=== PATIENT | male | born 1945 | race Caucasian/White ===

== ENCOUNTER 2020-11-04 15:59 | Inpatient (IN) | payer OTHER ==
[~2020-11-04] VITALS: Ht 172.7 cm; Wt 55.0 kg
[2020-11-04] MEDS ORDERED: IV NORMAL SALINE 1000ML BAG 1,000 ML IV ONE ×2 (16:30→19:30)
--- NOTE | 2020-11-04 16:35 | RAD ---
Exam: Chest one view INDICATION: Cough TECHNIQUE: Frontal view of the chest Comparisons: None FINDINGS: The cardiomediastinal silhouette and pulmonary vessels are within normal limits. Strandy bibasilar airspace disease. No pleural effusion. IMPRESSION: Bibasilar atelectasis. Electronically signed by: Douglas Mccormack MD (11/04/2020 4:32 PM) LEONARDO
[2020-11-04 16:48] LABS: BASO % 0 % (0-3); EOS % 0 % (0-3); HEMATOCRIT 26.5 % (39.0-53.0); HEMOGLOBIN 8.6 g/dL (13.0-17.5); LYMPH # 0.3 x10^3/uL (1.0-4.8); LYMPH % 2 % (24-48); MEAN CORPUSCULAR HEMOGLOBIN 28 pg (25-35); MEAN CORPUSCULAR HGB CONC 32 g/dL (31-37); MEAN CORPUSCULAR VOLUME 88 fL (79-100); MONO # 0.3 x10^3/uL (0.0-1.1); MONO % 2 % (0-9); NEUT # 13.2 x10^3/uL (1.8-7.7); NEUT % 96 % (31-73); PLATELET COUNT 220 x10^3/uL (140-400); RED BLOOD COUNT 3.03 x10^6/uL (4.30-5.70); RED CELL DISTRIBUTION WIDTH 16.9 % (11.5-14.5); WHITE BLOOD COUNT 13.8 x10^3/uL (4.0-11.0)
--- NOTE | 2020-11-04 16:52 | PHYS DOC ---
Past Medical History Past Surgical History: Other Additional Past Surgical Histo: unable to obtain Smoking Status: Unknown if ever smoked Alcohol Use: None General Adult EDM: Chief Complaint: BLOOD IN URINE HPI: HPI: Patient is a 75 year old male who was brought here from [facility] due to blood in his Harris catheter. Patient chronically has indwelling Harris catheter. Today they replaced the Harris catheter, afterward they noted blood in the Harris catheter so they want him to be sent to ER for evaluation. Patient was supposed to go to [facility] for urology care however they diverted him here because his blood pressure was low, 84/40. Patient has history of atrial fibrillation. Patient at baseline is confused. No chest pain, no abdominal pain. Patient has been coughing for a few days as well. Patient was not vaccinated for COVID-19. EMS gave patient 2 L normal saline on route here. Review of Systems: Review of Systems: Constitutional: Denies fever or chills. [] Eyes: Denies change in visual acuity. [] HENT: Denies nasal congestion or sore throat. [] Respiratory: Positive for cough and trouble breathing Cardiovascular: Denies chest pain or edema. [] GI: Denies abdominal pain, nausea, vomiting, bloody stools or diarrhea. [] : Positive for blood in the Harris catheter Musculoskeletal: Denies back pain or joint pain. [] Integument: Denies rash. [] Neurologic: Denies headache, focal weakness or sensory changes. [] Endocrine: Denies polyuria or polydipsia. [] Lymphatic: Denies swollen glands. [] Psychiatric: Denies depression or anxiety. [] Heart Score: C/O Chest Pain: N/A Risk Factors: Risk Factors: DM, Current or recent (<one month) smoker, HTN, HLP, family history of CAD, obesity. Risk Scores: Score 0 - 3: 2.5% MACE over next 6 weeks - Discharge Home Score 4 - 6: 20.3% MACE over next 6 weeks - Admit for Clinical Observation Score 7 - 10: 72.7% MACE over next 6 weeks - Early Invasive Strategies Current Medications: Current Medications Medications (Trade) Dose Ordered Sig/Betsy Start Time Stop Time Status Last Admin Dose Admin Sodium Chloride 1,000 ml @ 1,000 mls/hr 1X ONCE 11/04/20 16:30 11/04/20 17:29 UNV 11/04/20 16:30 1,000 MLS/HR Allergies: Allergies: Allergies Coded Allergies Type Severity Reaction Last Updated Verified No Known Drug Allergies 11/04/20 No Physical Exam: PE: Constitutional: Well developed, well nourished, no acute distress, non-toxic appearance. [] HENT: Normocephalic, atraumatic, bilateral external ears normal, oropharynx moist, no oral exudates, nose normal. [] Eyes: PERRLA, EOMI, conjunctiva normal, no discharge. [] Neck: Normal range of motion, no tenderness, supple, no stridor. [] Cardiovascular tachycardia with irregular rhythm, no murmur [] Lungs & Thorax: Bilateral breath sounds clear to auscultation [] Abdomen: Bowel sounds normal, soft, no tenderness, no masses, no pulsatile masses. Harris catheter in place, dark brown urine in the back, yellow urine in the tubing. Skin: Warm, dry, no erythema, no rash. [] Back: No tenderness, no CVA tenderness. [] Extremities: No tenderness, no cyanosis, no clubbing, ROM intact, no edema. [] Neurologic: Patient is awake alert but confused. Was moving all extremities. Psychologic: Affect normal, judgement normal, mood normal. [] Current Patient Data: Labs: Current Medications Medications (Trade) Dose Ordered Sig/Betsy Route PRN Reason Start Time Stop Time Status Last Admin Dose Admin Sodium Chloride 1,000 ml @ 1,000 mls/hr 1X ONCE IV 11/04/20 16:30 11/04/20 17:29 UNV 11/04/20 16:30 1,000 MLS/HR Vital Signs: Vital Signs Date Time Temp Pulse Resp B/P (MAP) Pulse Ox O2 Delivery O2 Flow Rate FiO2 11/04/20 16:09 97.9 106 15 101/63 96 Nasal Cannula 2.0 97.9 EKG: EKG: [] Radiology/Procedures: Radiology/Procedures: [][facility] [address] [place] [address] IMAGING REPORT Signed PATIENT: XAVI LEWIS ACCOUNT: [id number] : 1945 LOCATION: ER AGE: 75 SEX: M EXAM STATUS: REG ER ORD. PHYSICIAN: SALLY BARRETT DO REASON: COUGH PROCEDURE: CHEST AP ONLY Exam: Chest one view INDICATION: Cough TECHNIQUE: Frontal view of the chest Comparisons: None FINDINGS: The cardiomediastinal silhouette and pulmonary vessels are within normal limits. Strandy bibasilar airspace disease. No pleural effusion. IMPRESSION: Bibasilar atelectasis. Electronically signed by: Douglas Shultz MD (11/04/2020 4:32 PM) [facility] DICTATED and SIGNED BY: DOUGLAS SHULTZ MD DATE: 11/04/20 [id number] Course & Med Decision Making: Course & Med Decision Making Pertinent Labs and Imaging studies reviewed. (See chart for details) Patient is a 75-year-old male who was sent here from [facility]. Patient was found to have urosepsis. Patient was given IV fluid in ER, he met criteria for sepsis. Patient was given IV Rocephin in ER, his blood pressure improved. Patient be admitted to the hospital service, discussed with Dr. Jeff López who agreed to admit the patient. Sera Disclaimer: Sera Disclaimer: This electronic medical record was generated, in whole or in part, using a voice recognition dictation system. Departure Departure Impression: Primary Impression: UTI (urinary tract infection) Additional Impressions: Sepsis Person under investigation for COVID-19 Disposition: ADMITTED INPATIENT Admitting Physician: [facility] (Dr. JEFF LÓPEZ) Condition: IMPROVED Referrals: NO PCP (PCP) SALLY BARRETT DO Nov 04, 2020 16:52
[2020-11-04] MEDS ORDERED: cefTRIAXone IV Push 1 GM VIAL. IVP ONE (17:00)
[2020-11-04 17:02] LABS: CALCIUM 7.7 mg/dL (8.5-10.1); CLARITY,URINE BLOODY; COLOR,URINE BROWN; CREATININE 1.1 mg/dL (0.7-1.3); GFR 65.4; POTASSIUM 3.9 mmol/L (3.5-5.1); RBC,URINE TNTC /HPF (0-2)
[2020-11-04 17:06] LABS: BACTERIA,URINE MODERATE /HPF (0-FEW); WBC,URINE >40 /HPF (0-4)
[2020-11-04 17:08] LABS: ALBUMIN/GLOBULIN RATIO 0.7 (1.0-1.7); MAGNESIUM 1.6 mg/dL (1.8-2.4); TOTAL BILIRUBIN 0.2 mg/dL (0.2-1.0); TOTAL PROTEIN 4.8 g/dL (6.4-8.2)
[2020-11-04] MEDS ORDERED: CALCIUM GLUCONATE 1,000 MG in IV NORMAL SALINE 100ML 100 ML IV ONE (17:30)
[2020-11-04] MEDS ORDERED: MAGNESIUM SULFATE 2GM 50 ML IV ONE (17:30)
[2020-11-04] MEDS ORDERED: CALCIUM GLUCONATE 1,000 MG/10 ML VIAL. IVP ONE (17:30)
[2020-11-04 17:37] LABS: % BANDS 15 % (0-9); % LYMPHS 2 % (24-48); % MONOS 2 % (0-10); % SEGS 81 % (35-66); PLT ESTIMATE ADEQUATE (ADEQUATE)
--- NOTE | 2020-11-04 18:08 | EKG ---
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
[2020-11-04] MEDS ORDERED: ONDANSETRON PF 4 MG/2 ML VIAL. IVP PRN ×2 (18:30→19:15)
[2020-11-04] MEDS: IV NORMAL SALINE 1000ML BAG 1,000 ML IV SCH (18:30)
[2020-11-04] MEDS ORDERED: MORPHINE SULFATE 4 MG/ML INJ. IVP PRN (19:00)
--- NOTE | 2020-11-04 19:10 | PDOC1 ---
History and Physical Date of Admission Date of Admission DATE: 11/04/20 TIME: 18:56 Identification/Chief Complaint Chief Complaint Blood in urine Source Source: Chart review History of Present Illness History of Present Illness Patient 75-year-old male with past medical history dementia, chronic indwelling Harris catheter, who [facility] due to blood found in his Harris catheter. His Harris was recently changed at his correctional facility, he was sent to the ED due to continued bleeding. He was supposed to follow-up at [facility] for urology, however they never returned to [facility] because his blood pressure was low, 84/40 mmHg. Upon arrival in the ED he was tachycardic, afebrile, we did require 2 L nasal cannula due to some hypoxia. Labs on admission showed WBC 13.8, hemoglobin 8.6, hematocrit 26.5, MCV 88, platelets 225, lactic acid 2.1, albumin 2.0. His rapid COVID-19 was negative. His urinalysis showed RBCs TNTC, WBC >40, urine bacteria moderate, further UA results were not performed likely due to gross hematuria. He has been vaccinated against COVID-19. He received Rocephin 1 g and IV fluids. Will admit patient for further medical management. Past Medical History Past Medical History Dementia, A. fib, CKD, frequent UTIs Past Surgical History Past Surgical History Reviewed with patient but unable to obtain due to clinical history of dementia Family History Family History Reviewed with patient but unable to obtain due to clinical history dementia Social History Smoke: No ALCOHOL: none Drugs: None Current Problem List Problem List Problems Medical Problems: (1) Person under investigation for COVID-19 Status: Acute (2) Sepsis Status: Acute (3) UTI (urinary tract infection) Status: Acute Current Medications Current Medications Current Medications Sodium Chloride 1,000 ml @ 1,000 mls/hr 1X ONCE IV Last administered on 11/04/20at 16:30; Start 11/04/20 at 16:30; Stop 11/04/20 at 17:29; Status DC Ceftriaxone Sodium (Rocephin) 1 gm 1X ONCE IVP Last administered on 11/04/20at 17:38; Start 11/04/20 at 17:00; Stop 11/04/20 at 17:01; Status DC Magnesium Sulfate 50 ml @ 25 mls/hr 1X ONCE IV Last administered on 11/04/20at 17:43; Start 11/04/20 at 17:30; Stop 11/04/20 at 19:29 Calcium Gluconate (Calcium Gluconate) 1,000 mg 1X ONCE IVP ; Start 11/04/20 at 17:30; Stop 11/04/20 at 17:31; Status UNV Calcium Gluconate 1000 mg/Sodium Chloride 110 ml @ 220 mls/hr 1X ONCE IV Last administered on 11/04/20at 18:11; Start 11/04/20 at 17:30; Stop 11/04/20 at 17:59; Status DC Ondansetron HCl (Zofran) 4 mg PRN Q8HRS PRN IVP NAUSEA/VOMITING; Start 11/04/20 at 18:30; Stop 11/05/20 at 18:29 Sodium Chloride 1,000 ml @ 125 mls/hr Q8H IV ; Start 11/04/20 at 18:30; Stop 11/05/20 at 18:29 Allergies Allergies: Coded Allergies: No Known Drug Allergies (Unverified , 11/04/20) ROS Review of System Reviewed with patient but unable to stand to history of dementia Physical Exam Physical Exam General: Alert, Cooperative, No acute distress HEENT: PERRLA, EOMI Lungs: Clear to auscultation, Normal air movement Heart: RRR, no murmurs Cardiovascular: S1, S2 Abdomen: Normal bowel sounds, Soft, No tenderness Extremities: No clubbing, No cyanosis : Harris catheter in place draining dark red urine Skin: No rashes, No significant lesion Neuro: Nonverbal, normal tone, Sensation intact Psych/Mental Status: Pleasantly demented, mood NL Vitals Vitals Vital Signs Date Time Temp Pulse Resp B/P (MAP) Pulse Ox O2 Delivery O2 Flow Rate FiO2 11/04/20 17:43 98 19 98/54 (69) 97 Nasal Cannula 2.0 11/04/20 16:09 97.9 97.9 Labs Labs Laboratory Tests Test 11/04/20 16:40 11/04/20 17:00 White Blood Count 13.8 x10^3/uL (4.0-11.0) Red Blood Count 3.03 x10^6/uL (4.30-5.70) Hemoglobin 8.6 g/dL (13.0-17.5) Hematocrit 26.5 % (39.0-53.0) Mean Corpuscular Volume 88 fL (79-100) Mean Corpuscular Hemoglobin 28 pg (25-35) Mean Corpuscular Hemoglobin Concent 32 g/dL (31-37) Red Cell Distribution Width 16.9 % (11.5-14.5) Platelet Count 220 x10^3/uL (140-400) Neutrophils (%) (Auto) 96 % (31-73) Lymphocytes (%) (Auto) 2 % (24-48) Monocytes (%) (Auto) 2 % (0-9) Eosinophils (%) (Auto) 0 % (0-3) Basophils (%) (Auto) 0 % (0-3) Neutrophils # (Auto) 13.2 x10^3/uL (1.8-7.7) Lymphocytes # (Auto) 0.3 x10^3/uL (1.0-4.8) Monocytes # (Auto) 0.3 x10^3/uL (0.0-1.1) Eosinophils # (Auto) 0.0 x10^3/uL (0.0-0.7) Basophils # (Auto) 0.0 x10^3/uL (0.0-0.2) Segmented Neutrophils % 81 % (35-66) Band Neutrophils % 15 % (0-9) Lymphocytes % 2 % (24-48) Monocytes % 2 % (0-10) Dohle Bodies Present Platelet Estimate Adequate (ADEQUATE) Urine Collection Type Unknown Urine Color Brown Urine Clarity Bloody Urine pH (<5.0-8.0) Urine Specific [place] (1.000-1.030) Urine Protein mg/dL (NEG-TRACE) Urine Glucose (UA) mg/dL (NEG) Urine Ketones (Stick) mg/dL (NEG) Urine Blood (NEG) Urine Nitrite (NEG) Urine Bilirubin (NEG) Urine Urobilinogen Dipstick mg/dL (0.2 mg/dL) Urine Leukocyte Esterase (NEG) Urine RBC Tntc /HPF (0-2) Urine WBC >40 /HPF (0-4) Urine Bacteria Moderate /HPF (0-FEW) Sodium Level 139 mmol/L (136-145) Potassium Level 3.9 mmol/L (3.5-5.1) Chloride Level 107 mmol/L (98-107) Carbon Dioxide Level 25 mmol/L (21-32) Anion Gap 7 (6-14) Blood Urea Nitrogen 22 mg/dL (8-26) Creatinine 1.1 mg/dL (0.7-1.3) Estimated GFR (Cockcroft-Gault) 65.4 BUN/Creatinine Ratio 20 (6-20) Glucose Level 103 mg/dL (70-99) Lactic Acid Level 2.1 mmol/L (0.4-2.0) Calcium Level 7.7 mg/dL (8.5-10.1) Magnesium Level 1.6 mg/dL (1.8-2.4) Total Bilirubin 0.2 mg/dL (0.2-1.0) Aspartate Amino Transf (AST/SGOT) 18 U/L (15-37) Alanine Aminotransferase (ALT/SGPT) 19 U/L (16-63) Alkaline Phosphatase 62 U/L (46-116) Total Protein 4.8 g/dL (6.4-8.2) Albumin 2.0 g/dL (3.4-5.0) Albumin/Globulin Ratio 0.7 (1.0-1.7) SARS-CoV-2 Antigen (Rapid) Negative (NEGATIVE) Laboratory Tests Test 11/04/20 16:40 11/04/20 17:00 White Blood Count 13.8 x10^3/uL (4.0-11.0) Red Blood Count 3.03 x10^6/uL (4.30-5.70) Hemoglobin 8.6 g/dL (13.0-17.5) Hematocrit 26.5 % (39.0-53.0) Mean Corpuscular Volume 88 fL (79-100) Mean Corpuscular Hemoglobin 28 pg (25-35) Mean Corpuscular Hemoglobin Concent 32 g/dL (31-37) Red Cell Distribution Width 16.9 % (11.5-14.5) Platelet Count 220 x10^3/uL (140-400) Neutrophils (%) (Auto) 96 % (31-73) Lymphocytes (%) (Auto) 2 % (24-48) Monocytes (%) (Auto) 2 % (0-9) Eosinophils (%) (Auto) 0 % (0-3) Basophils (%) (Auto) 0 % (0-3) Neutrophils # (Auto) 13.2 x10^3/uL (1.8-7.7) Lymphocytes # (Auto) 0.3 x10^3/uL (1.0-4.8) Monocytes # (Auto) 0.3 x10^3/uL (0.0-1.1) Eosinophils # (Auto) 0.0 x10^3/uL (0.0-0.7) Basophils # (Auto) 0.0 x10^3/uL (0.0-0.2) Segmented Neutrophils % 81 % (35-66) Band Neutrophils % 15 % (0-9) Lymphocytes % 2 % (24-48) Monocytes % 2 % (0-10) Dohle Bodies Present Platelet Estimate Adequate (ADEQUATE) Urine Collection Type Unknown Urine Color Brown Urine Clarity Bloody Urine pH (<5.0-8.0) Urine Specific [place] (1.000-1.030) Urine Protein mg/dL (NEG-TRACE) Urine Glucose (UA) mg/dL (NEG) Urine Ketones (Stick) mg/dL (NEG) Urine Blood (NEG) Urine Nitrite (NEG) Urine Bilirubin (NEG) Urine Urobilinogen Dipstick mg/dL (0.2 mg/dL) Urine Leukocyte Esterase (NEG) Urine RBC Tntc /HPF (0-2) Urine WBC >40 /HPF (0-4) Urine Bacteria Moderate /HPF (0-FEW) Sodium Level 139 mmol/L (136-145) Potassium Level 3.9 mmol/L (3.5-5.1) Chloride Level 107 mmol/L (98-107) Carbon Dioxide Level 25 mmol/L (21-32) Anion Gap 7 (6-14) Blood Urea Nitrogen 22 mg/dL (8-26) Creatinine 1.1 mg/dL (0.7-1.3) Estimated GFR (Cockcroft-Gault) 65.4 BUN/Creatinine Ratio 20 (6-20) Glucose Level 103 mg/dL (70-99) Lactic Acid Level 2.1 mmol/L (0.4-2.0) Calcium Level 7.7 mg/dL (8.5-10.1) Magnesium Level 1.6 mg/dL (1.8-2.4) Total Bilirubin 0.2 mg/dL (0.2-1.0) Aspartate Amino Transf (AST/SGOT) 18 U/L (15-37) Alanine Aminotransferase (ALT/SGPT) 19 U/L (16-63) Alkaline Phosphatase 62 U/L (46-116) Total Protein 4.8 g/dL (6.4-8.2) Albumin 2.0 g/dL (3.4-5.0) Albumin/Globulin Ratio 0.7 (1.0-1.7) SARS-CoV-2 Antigen (Rapid) Negative (NEGATIVE) Images Images PATIENT: XAVI LEWIS ACCOUNT: [id number] : 1945 LOCATION: ER AGE: 75 SEX: M EXAM STATUS: REG ER ORD. PHYSICIAN: SALLY BARRETT DO REASON: COUGH PROCEDURE: CHEST AP ONLY Exam: Chest one view INDICATION: Cough TECHNIQUE: Frontal view of the chest Comparisons: None FINDINGS: The cardiomediastinal silhouette and pulmonary vessels are within normal limits. Strandy bibasilar airspace disease. No pleural effusion. IMPRESSION: Bibasilar atelectasis. VTE Prophylaxis Ordered VTE Prophylaxis Devices: Yes VTE Pharmacological Prophylaxi: No Assessment/Plan Assessment/Plan Urosepsis Acute cystitis Chronic indwelling Harris Hematuria secondary to chronic indwelling Harris Normocytic anemia Atrial fibrillation Dementia Severe malnutrition Plan: We will admit patient and provide continuous IV fluids Harris catheter was changed in the ED Rocephin IV 1 g daily Provide pain medications Resume what home medications we can once identified FEN - Cardiac diet PPX - SCDs FULL CODE Dispo - inpatient for above Discussed with patient but did not name surrogate decision-maker Justifications for Admission Other Justification ROXANE RENTERIA MD Nov 04, 2020 19:10
[2020-11-04] MEDS ORDERED: ZOLPIDEM 5 MG TABLET. PO PRN (19:15)
[2020-11-04] MEDS ORDERED: HALOPERIDOL LACTATE 5 MG/ML VIAL. IVP PRN (19:15)
[2020-11-04] MEDS ORDERED: CALCIUM CARBONATE 500 MG TAB.CHEW PO PRN (19:15)
[2020-11-04] MEDS ORDERED: MAG HYDROX/ALUMINUM HYD/SIMETH 30 ML ORAL.SUSP PO PRN (19:15)
[2020-11-04] MEDS ORDERED: HYDROcodone/APAP 5/325MG 1 TAB TABLET PO PRN (19:15)
[2020-11-04] MEDS ORDERED: MAGNESIUM HYDROXIDE 2,400 MG/30 ML ORAL.SUSP. PO PRN (19:15)
[2020-11-04] MEDS ORDERED: ACETAMINOPHEN 325 MG TABLET. PO PRN (19:15)
[2020-11-04 22:30] VITALS: BP 89/54
[2020-11-04] MEDS ORDERED: ARIP2TAB3 PO ×2 (22:58→22:59)
[2020-11-04] MEDS ORDERED: ACET325T21 PO (23:01)
[2020-11-04] MEDS ORDERED: AMIO200T6 PO (23:02)
[2020-11-04] MEDS ORDERED: CYAN100031 PO (23:03)
[2020-11-04] MEDS ORDERED: DOCU100C28 PO (23:04)
[2020-11-04] MEDS ORDERED: APIX5TAB PO (23:05)
[2020-11-04] MEDS ORDERED: FINA5TAB4 PO (23:06)
[2020-11-04] MEDS ORDERED: METO25TA4 PO (23:07)
[2020-11-04] MEDS ORDERED: HALO2TAB PO (23:07)
[2020-11-04] MEDS ORDERED: POLY17PO29 PO (23:08)
[2020-11-04] MEDS ORDERED: TAMS0.4C97 PO (23:09)
[2020-11-04] MEDS ORDERED: THIA100T57 PO (23:10)
[2020-11-04] MEDS ORDERED: [UNRECOGNIZED DRUG - CODE] TP (23:10)
[2020-11-05] VITALS (11 sets, daily range): BP systolic 76–150; BP diastolic 46–82
[2020-11-05] MEDS: IV NORMAL SALINE 1000ML BAG 1,000 ML IV SCH ×2 (02:41→10:30)
--- NOTE | 2020-11-05 03:03 | NUR ---
Admit from ER via gurney to [facility] room 675. Sedated on arrival. Ativan 2mg IVP given in ER for restlessness. Unable to obtain information from patient. Patient [facility] an [facility]. 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 Admitted for UTI and Sepsis. Rocephin given in ER and ordered daily. Low BP. IVF NS at 125/HR infusing. Drowsy but responds to shaking. Coughs thick white phlegm intermittently. O2 Sat >90% on RA. Has chronic Harris in place. Harris changed out at facility prior to admit to [facility] ER. Bloody urine noted in Harris bag. Clear yellow urine noted in Harris tubing. Resting in bed. Call light at hand. Bed alarm on. Officer remains at bedside.
[2020-11-05] MEDS: LACTOBACILLUS RHAMNOSUS GG 1 CAPSULE. PO SCH ×3 (09:00→20:33)
--- NOTE | 2020-11-05 09:26 | PDOC ---
PROGRESS NOTES Date of Service: DATE: 11/05/20 TIME: 09:26 Chief Complaint Chief Complaint FINDINGS: The cardiomediastinal silhouette and pulmonary vessels are within normal limits. Strandy bibasilar airspace disease. No pleural effusion. IMPRESSION: Bibasilar atelectasis. VTE Prophylaxis Ordered VTE Prophylaxis Devices: Yes VTE Pharmacological Prophylaxi: No Assessment/Plan Assessment/Plan Urosepsis Acute cystitis Chronic indwelling Harris Hematuria secondary to chronic indwelling Harris Normocytic anemia Atrial fibrillation Dementia Severe malnutrition Plan: continuous IV fluids Harris catheter was changed in the ED Provide pain medications home medications we can once identified FEN - Cardiac diet PPX - SCDs FULL CODE Dispo - inpatient for above Discussed with patient but did not name surrogate decision-maker Continue cefepime. Discontinue Zyvox. Start IVdaptomycin. CT abdomen and pelvis. REPEAT BLOOD CULTURES X 2 NOW 35 MIN CC TIME Justifications for Admission Justifications for Admission Other Justification History of Present Illness History of Present Illness Identification/Chief Complaint Chief Complaint Blood in urine Source Source: Chart review History of Present Illness History of Present Illness Patient 75-year-old male with past medical history dementia, chronic indwelling Harris catheter, [facility] due to blood found in his Harris catheter. His Harris was recently changed at his correctional facility, he was sent to the ED due to continued bleeding. He was supposed to follow-up at [facility] for urology, however they never returned to [facility] because his blood pressure was low, 84/40 mmHg. Upon a rrival in the ED he was tachycardic, afebrile, we did require 2 L nasal cannula due to some hypoxia. Labs on admission showed WBC 13.8, hemoglobin 8.6, hematocrit 26.5, MCV 88, platelets 225, lactic acid 2.1, albumin 2.0. His rapid COVID-19 was negative. His urinalysis showed RBCs TNTC, WBC >40, urine bacteria moderate, further UA results were not performed likely due to gross hematuria. He has been vaccinated against COVID-19. He received Rocephin 1 g and IV fluids. Will admit patient for further medical management. Past Medical History Past Medical History Dementia, A. fib, CKD, frequent UTIs Past Surgical History Past Surgical History Reviewed with patient but unable to obtain due to clinical history of dementia Family History Family History Reviewed with patient but unable to obtain due to clinical history dementia Social History Smoke: No ALCOHOL: none Drugs: None Current Problem List Problem List Problems Medical Problems: (1) Person under investigation for COVID-19 Status: Acute (2) Sepsis Status: Acute (3) UTI (urinary tract infection) Status: Acute Current Medications Current Medications Current Medications Sodium Chloride 1,000 ml @ 1,000 mls/hr 1X ONCE IV Last administered on 11/04/20at 16:30; Start 11/04/20 at 16:30; Stop 11/04/20 at 17:29; Status DC Ceftriaxone Sodium (Rocephin) 1 gm 1X ONCE IVP Last administered on 11/04/20at 17:38; Start 11/04/20 at 17:00; Stop 11/04/20 at 17:01; Status DC Magnesium Sulfate 50 ml @ 25 mls/hr 1X ONCE IV Last administered on 11/04/20at 17:43; Start 11/04/20 at 17:30; Stop 11/04/20 at 19:29 Calcium Gluconate (Calcium Gluconate) 1,000 mg 1X ONCE IVP ; Start 11/04/20 at 17:30; Stop 11/04/20 at 17:31; Status UNV Calcium Gluconate 1000 mg/Sodium Chloride 110 ml @ 220 mls/hr 1X ONCE IV Last administered on 11/04/20at 18:11; Start 11/04/20 at 17:30; Stop 11/04/20 at 17:59; Status DC Ondansetron HCl (Zofran) 4 mg PRN Q8HRS PRN IVP NAUSEA/VOMITING; Start 11/04/20 at 18:30; Stop 11/05/20 at 18:29 Sodium Chloride 1,000 ml @ 125 mls/hr Q8H IV ; Start 11/04/20 at 18:30; Stop 11/05/20 at 18:29 Allergies Allergies: Coded Allergies: No Known Drug Allergies (Unverified , 11/04/20) Vitals Vitals Vital Signs Date Time Temp Pulse Resp B/P (MAP) Pulse Ox O2 Delivery O2 Flow Rate FiO2 11/05/20 05:21 78 16 98/50 (66) 97 Room Air 11/05/20 03:00 97.4 97.4 11/04/20 17:43 2.0 Physical Exam Physical Exam Physical Exam General: Alert, Cooperative, No acute distress HEENT: PERRLA, EOMI Lungs: Clear to auscultation, Normal air movement Heart: RRR, no murmurs Cardiovascular: S1, S2 Abdomen: Normal bowel sounds, Soft, No tenderness Extremities: No clubbing, No cyanosis : Harris catheter in place draining dark red urine Skin: No rashes, No significant lesion Neuro: Nonverbal, normal tone, Sensation intact Psych/Mental Status: Pleasantly demented, mood NL General: Alert, Cooperative, No acute distress Lungs: Clear Abdomen: Normal bowel sounds, Soft, No tenderness Extremities: No cyanosis Labs LABS think and talk about your own wishes for healthcare in case youre ever not able to tell your loved ones or healthcare team what your wishes are. If you became really sick tomorrow, would your loved ones or healthcare team know what your wishes were? Here are some examples of different sets of goals and health care directives for your conversations: My wish is to use all medical therapies in cluding resuscitation (such as CPR) and artificial life-sustaining treatments (such as machines and medicine) in an intensive care unit, to keep me alive if at all possible. My wish is to live as long as possible, but I dont want attempts to bring me back to life if my heart and breathing stop. I would like full medical care but without using resuscitation or artificial life-sustaining intensive treatments, if these are unlikely to make me live longer or restore me to a certain quality of life. I will accept treatments that try to fix medical problems, but if Im not getting better or going to have a certain quality of life, I would want to switch to focusing only on my comfort and letting my happen naturally. My wish is for healthcare to focus on my comfort and lessen suffering. I would like medical care that focuses only on my quality of life and that allows me to naturally. Consider: What does a good quality of life mean for me? For many people, it is the ability to live independently and tell their own story. I may define it differently. Under what circumstances would I not want to be kept alive by medical treatments, resuscitation, or intensive care? What kind of changes to my health or life might make me change my mind? If I clearly am facing the last chapter of my life, how do I want the story to end? Who do I want to speak for me if I cant speak for myself? Do they understand my preferences? Are they willing to assume the role of my Durable Power of Health Information Assistant? Can I change my Goals of Care Designation? Yes, your Goals of Care Designation can be changed at any time. It should be reviewed if: your he alth condition changes your circumstances change (such as new understanding) you are transferred or admitted to another healthcare setting dpoa review, to pt portal 16 min and question review PATIENT: XAVI LEWIS ACCOUNT: [id number] : 1945 LOCATION: ER AGE: 75 SEX: M EXAM STATUS: REG ER ORD. PHYSICIAN: SALLY BARRETT DO REASON: COUGH PROCEDURE: CHEST AP ONLY Exam: Chest one view INDICATION: Cough TECHNIQUE: Frontal view of the chest Comparisons: None FINDINGS: The cardiomediastinal silhouette and pulmonary vessels are within normal limits. Strandy bibasilar airspace disease. No pleural effusion. IMPRESSION: Bibasilar atelectasis. Electronically signed by: Douglas Shultz MD (11/04/2020 4:32 PM) [facility] DICTATED and SIGNED BY: DOUGLAS SHULTZ MD DATE: 11/04/20 [id number] Laboratory Tests Test 11/04/20 16:40 11/04/20 17:00 11/04/20 20:14 White Blood Count 13.8 x10^3/uL (4.0-11.0) Red Blood Count 3.03 x10^6/uL (4.30-5.70) Hemoglobin 8.6 g/dL (13.0-17.5) Hematocrit 26.5 % (39.0-53.0) Mean Corpuscular Volume 88 fL (79-100) Mean Corpuscular Hemoglobin 28 pg (25-35) Mean Corpuscular Hemoglobin Concent 32 g/dL (31-37) Red Cell Distribution Width 16.9 % (11.5-14.5) Platelet Count 220 x10^3/uL (140-400) Neutrophils (%) (Auto) 96 % (31-73) Lymphocytes (%) (Auto) 2 % (24-48) Monocytes (%) (Auto) 2 % (0-9) Eosinophils (%) (Auto) 0 % (0-3) Basophils (%) (Auto) 0 % (0-3) Neutrophils # (Auto) 13.2 x10^3/uL (1.8-7.7) Lymphocytes # (Auto) 0.3 x10^3/uL (1.0-4.8) Monocytes # (Auto) 0.3 x10^3/uL (0.0-1.1) Eosinophils # (Auto) 0.0 x10^3/uL (0.0-0.7) Basophils # (Auto) 0.0 x10^3/uL (0.0-0.2) Segmented Neutrophils % 81 % (35-66) Band Neutrophils % 15 % (0-9) Lymphocytes % 2 % (24-48) Monocytes % 2 % (0-10) Dohle Bodies Present Platelet Estimate Adequate (ADEQUATE) Urine Collection Type Unknown Urine Color Brown Urine Clarity Bloody Urine pH (<5.0-8.0) Urine Specific [place] (1.000-1.030) Urine Protein mg/dL (NEG-TRACE) Urine Glucose (UA) mg/dL (NEG) Urine Ketones (Stick) mg/dL (NEG) Urine Blood (NEG) Urine Nitrite (NEG) Urine Bilirubin (NEG) Urine Urobilinogen Dipstick mg/dL (0.2 mg/dL) Urine Leukocyte Esterase (NEG) Urine RBC Tntc /HPF (0-2) Urine WBC >40 /HPF (0-4) Urine Bacteria Moderate /HPF (0-FEW) Sodium Level 139 mmol/L (136-145) Potassium Level 3.9 mmol/L (3.5-5.1) Chloride Level 107 mmol/L (98-107) Carbon Dioxide Level 25 mmol/L (21-32) Anion Gap 7 (6-14) Blood Urea Nitrogen 22 mg/dL (8-26) Creatinine 1.1 mg/dL (0.7-1.3) Estimated GFR (Cockcroft-Gault) 65.4 BUN/Creatinine Ratio 20 (6-20) Glucose Level 103 mg/dL (70-99) Lactic Acid Level 2.1 mmol/L (0.4-2.0) 1.1 mmol/L (0.4-2.0) Calcium Level 7.7 mg/dL (8.5-10.1) Magnesium Level 1.6 mg/dL (1.8-2.4) Total Bilirubin 0.2 mg/dL (0.2-1.0) Aspartate Amino Transf (AST/SGOT) 18 U/L (15-37) Alanine Aminotransferase (ALT/SGPT) 19 U/L (16-63) Alkaline Phosphatase 62 U/L (46-116) Total Protein 4.8 g/dL (6.4-8.2) Albumin 2.0 g/dL (3.4-5.0) Albumin/Globulin Ratio 0.7 (1.0-1.7) SARS-CoV-2 RNA (MELISSA) Negative (Negative) SARS-CoV-2 Antigen (Rapid) Negative (NEGATIVE) Assessment and Plan Assessmemt and Plan Problems Medical Problems: (1) Person under investigation for COVID-19 Status: Acute (2) Sepsis Status: Acute (3) UTI (urinary tract infection) Status: Acute Comment Review of Relevant I have reviewed the following items jose cruz (where applicable) has been applied. Labs Laboratory Tests Test 11/04/20 16:40 11/04/20 17:00 11/04/20 20:14 White Blood Count 13.8 x10^3/uL (4.0-11.0) Red Blood Count 3.03 x10^6/uL (4.30-5.70) Hemoglobin 8.6 g/dL (13.0-17.5) Hematocrit 26.5 % (39.0-53.0) Mean Corpuscular Volume 88 fL (79-100) Mean Corpuscular Hemoglobin 28 pg (25-35) Mean Corpuscular Hemoglobin Concent 32 g/dL (31-37) Red Cell Distribution Width 16.9 % (11.5-14.5) Platelet Count 220 x10^3/uL (140-400) Neutrophils (%) (Auto) 96 % (31-73) Lymphocytes (%) (Auto) 2 % (24-48) Monocytes (%) (Auto) 2 % (0-9) Eosinophils (%) (Auto) 0 % (0-3) Basophils (%) (Auto) 0 % (0-3) Neutrophils # (Auto) 13.2 x10^3/uL (1.8-7.7) Lymphocytes # (Auto) 0.3 x10^3/uL (1.0-4.8) Monocytes # (Auto) 0.3 x10^3/uL (0.0-1.1) Eosinophils # (Auto) 0.0 x10^3/uL (0.0-0.7) Basophils # (Auto) 0.0 x10^3/uL (0.0-0.2) Segmented Neutrophils % 81 % (35-66) Band Neutrophils % 15 % (0-9) Lymphocytes % 2 % (24-48) Monocytes % 2 % (0-10) Dohle Bodies Present Platelet Estimate Adequate (ADEQUATE) Urine Collection Type Unknown Urine Color Brown Urine Clarity Bloody Urine pH (<5.0-8.0) Urine Specific [place] (1.000-1.030) Urine Protein mg/dL (NEG-TRACE) Urine Glucose (UA) mg/dL (NEG) Urine Ketones (Stick) mg/dL (NEG) Urine Blood (NEG) Urine Nitrite (NEG) Urine Bilirubin (NEG) Urine Urobilinogen Dipstick mg/dL (0.2 mg/dL) Urine Leukocyte Esterase (NEG) Urine RBC Tntc /HPF (0-2) Urine WBC >40 /HPF (0-4) Urine Bacteria Moderate /HPF (0-FEW) Sodium Level 139 mmol/L (136-145) Potassium Level 3.9 mmol/L (3.5-5.1) Chloride Level 107 mmol/L (98-107) Carbon Dioxide Level 25 mmol/L (21-32) Anion Gap 7 (6-14) Blood Urea Nitrogen 22 mg/dL (8-26) Creatinine 1.1 mg/dL (0.7-1.3) Estimated GFR (Cockcroft-Gault) 65.4 BUN/Creatinine Ratio 20 (6-20) Glucose Level 103 mg/dL (70-99) Lactic Acid Level 2.1 mmol/L (0.4-2.0) 1.1 mmol/L (0.4-2.0) Calcium Level 7.7 mg/dL (8.5-10.1) Magnesium Level 1.6 mg/dL (1.8-2.4) Total Bilirubin 0.2 mg/dL (0.2-1.0) Aspartate Amino Transf (AST/SGOT) 18 U/L (15-37) Alanine Aminotransferase (ALT/SGPT) 19 U/L (16-63) Alkaline Phosphatase 62 U/L (46-116) Total Protein 4.8 g/dL (6.4-8.2) Albumin 2.0 g/dL (3.4-5.0) Albumin/Globulin Ratio 0.7 (1.0-1.7) SARS-CoV-2 RNA (MELISSA) Negative (Negative) SARS-CoV-2 Antigen (Rapid) Negative (NEGATIVE) Laboratory Tests Test 11/04/20 16:40 11/04/20 17:00 11/04/20 20:14 White Blood Count 13.8 x10^3/uL (4.0-11.0) Red Blood Count 3.03 x10^6/uL (4.30-5.70) Hemoglobin 8.6 g/dL (13.0-17.5) Hematocrit 26.5 % (39.0-53.0) Mean Corpuscular Volume 88 fL (79-100) Mean Corpuscular Hemoglobin 28 pg (25-35) Mean Corpuscular Hemoglobin Concent 32 g/dL (31-37) Red Cell Distribution Width 16.9 % (11.5-14.5) Platelet Count 220 x10^3/uL (140-400) Neutrophils (%) (Auto) 96 % (31-73) Lymphocytes (%) (Auto) 2 % (24-48) Monocytes (%) (Auto) 2 % (0-9) Eosinophils (%) (Auto) 0 % (0-3) Basophils (%) (Auto) 0 % (0-3) Neutrophils # (Auto) 13.2 x10^3/uL (1.8-7.7) Lymphocytes # (Auto) 0.3 x10^3/uL (1.0-4.8) Monocytes # (Auto) 0.3 x10^3/uL (0.0-1.1) Eosinophils # (Auto) 0.0 x10^3/uL (0.0-0.7) Basophils # (Auto) 0.0 x10^3/uL (0.0-0.2) Segmented Neutrophils % 81 % (35-66) Band Neutrophils % 15 % (0-9) Lymphocytes % 2 % (24-48) Monocytes % 2 % (0-10) Dohle Bodies Present Platelet Estimate Adequate (ADEQUATE) Urine Collection Type Unknown Urine Color Brown Urine Clarity Bloody Urine pH (<5.0-8.0) Urine Specific [place] (1.000-1.030) Urine Protein mg/dL (NEG-TRACE) Urine Glucose (UA) mg/dL (NEG) Urine Ketones (Stick) mg/dL (NEG) Urine Blood (NEG) Urine Nitrite (NEG) Urine Bilirubin (NEG) Urine Urobilinogen Dipstick mg/dL (0.2 mg/dL) Urine Leukocyte Esterase (NEG) Urine RBC Tntc /HPF (0-2) Urine WBC >40 /HPF (0-4) Urine Bacteria Moderate /HPF (0-FEW) Sodium Level 139 mmol/L (136-145) Potassium Level 3.9 mmol/L (3.5-5.1) Chloride Level 107 mmol/L (98-107) Carbon Dioxide Level 25 mmol/L (21-32) Anion Gap 7 (6-14) Blood Urea Nitrogen 22 mg/dL (8-26) Creatinine 1.1 mg/dL (0.7-1.3) Estimated GFR (Cockcroft-Gault) 65.4 BUN/Creatinine Ratio 20 (6-20) Glucose Level 103 mg/dL (70-99) Lactic Acid Level 2.1 mmol/L (0.4-2.0) 1.1 mmol/L (0.4-2.0) Calcium Level 7.7 mg/dL (8.5-10.1) Magnesium Level 1.6 mg/dL (1.8-2.4) Total Bilirubin 0.2 mg/dL (0.2-1.0) Aspartate Amino Transf (AST/SGOT) 18 U/L (15-37) Alanine Aminotransferase (ALT/SGPT) 19 U/L (16-63) Alkaline Phosphatase 62 U/L (46-116) Total Protein 4.8 g/dL (6.4-8.2) Albumin 2.0 g/dL (3.4-5.0) Albumin/Globulin Ratio 0.7 (1.0-1.7) SARS-CoV-2 RNA (MELISSA) Negative (Negative) SARS-CoV-2 Antigen (Rapid) Negative (NEGATIVE) Microbiology 11/04/20 Blood Culture - Final, Complete Medications Current Medications Sodium Chloride 1,000 ml @ 1,000 mls/hr 1X ONCE IV Last administered on 11/04/20at 16:30; Start 11/04/20 at 16:30; Stop 11/04/20 at 17:29; Status DC Ceftriaxone Sodium (Rocephin) 1 gm 1X ONCE IVP Last administered on 11/04/20at 17:38; Start 11/04/20 at 17:00; Stop 11/04/20 at 17:01; Status DC Magnesium Sulfate 50 ml @ 25 mls/hr 1X ONCE IV Last administered on 11/04/20at 17:43; Start 11/04/20 at 17:30; Stop 11/04/20 at 19:29; Status DC Calcium Gluconate (Calcium Gluconate) 1,000 mg 1X ONCE IVP ; Start 11/04/20 at 17:30; Stop 11/04/20 at 17:31; Status UNV Calcium Gluconate 1000 mg/Sodium Chloride 110 ml @ 220 mls/hr 1X ONCE IV Last administered on 11/04/20at 18:11; Start 11/04/20 at 17:30; Stop 11/04/20 at 17:59; Status DC Ondansetron HCl (Zofran) 4 mg PRN Q8HRS PRN IVP NAUSEA/VOMITING; Start 11/04/20 at 18:30; Stop 11/05/20 at 07:38; Status DC Sodium Chloride 1,000 ml @ 125 mls/hr Q8H IV Last administered on 11/05/20at 02:41; Start 11/04/20 at 18:30; Stop 11/05/20 at 18:29 Ceftriaxone Sodium (Rocephin) 1 gm Q24H IVP ; Start 11/05/20 at 17:00 Morphine Sulfate (Morphine Sulfate) 4 mg PRN Q3HRS PRN IVP PAIN; Start 11/04/20 at 19:00 Ondansetron HCl (Zofran) 4 mg PRN Q6HRS PRN IVP NAUSEA/VOMITING; Start 11/04/20 at 19:15 Al Hydroxide/Mg Hydroxide (Mylanta Plus Xs) 30 ml PRN Q3HRS PRN PO HEARTBURN / GAS; Start 11/04/20 at 19:15 Calcium Carbonate/ Glycine (Tums) 500 mg PRN Q3HRS PRN PO UPSET STOMACH; Start 11/04/20 at 19:15 Zolpidem Tartrate (Ambien) 5 mg PRN QHS PRN PO INSOMNIA, MAY REPEAT IN 1HR; Start 11/04/20 at 19:15 Acetaminophen/ Hydrocodone Bitart (Lortab 5/325) 1 tab PRN Q4HRS PRN PO MODERATE-SEVERE PAIN; Start 11/04/20 at 19:15 Acetaminophen (Tylenol) 650 mg PRN Q6HRS PRN PO Headaches, Temp > 101.5F; Start 11/04/20 at 19:15 Magnesium Hydroxide (Milk Of Magnesia) 2,400 mg PRN Q12HR PRN PO CONSTIPATION; Start 11/04/20 at 19:15 Haloperidol Lactate (Haldol Inj) 5 mg PRN Q6HRS PRN IVP AGITATION; Start 11/04/20 at 19:15 Lorazepam (Ativan Inj) 2 mg PRN Q6HRS PRN IVP ANXIETY / AGITATION-1ST CHOICE Last administered on 11/04/20at 20:41; Start 11/04/20 at 19:15 Sodium Chloride 1,000 ml @ 100 mls/hr 1X ONCE IV ; Start 11/04/20 at 19:30; Stop 11/05/20 at 05:29; Status DC Lactobacillus Rhamnosus (Culturelle) 1 cap BID PO ; Start 11/05/20 at 09:00 Active Scripts Active Reported Vitamin B-1 (Thiamine Hcl) 100 Mg Tablet 100 Mg PO DAILY Thera-Gel ([place] Tar) 251 Ml Shampoo 251 Ml TP 3X/WEEK Flomax (Tamsulosin Hcl) 0.4 Mg Cap.er.24h 0.8 Mg PO HS Miralax (Polyethylene Glycol 3350) 17 Gm Powd.pack 1 Pkt PO DAILY Metoprolol Tartrate 25 Mg Tablet 25 Mg PO BID Haloperidol 2 Mg Tablet 1 Tab PO BID Finasteride 5 Mg Tablet 5 Mg PO DAILY Eliquis (Apixaban) 5 Mg Tablet 5 Mg PO BID Docusate Sodium 100 Mg Capsule 1 Cap PO BID 15 Days B-12 (Cyanocobalamin (Vitamin B-12)) 1,000 Mcg Tablet.er 1,000 Mcg PO DAILY Amiodarone Hcl 200 Mg Tablet 200 Mg PO DAILY Acetaminophen 325 Mg Tablet 650 Mg PO QID Abilify (Aripiprazole) 2 Mg Tablet 2 Mg PO HS Vitals/I & O Vital Sign - Last 24 Hours 11/04/20 11/04/20 11/04/20 11/04/20 16:09 17:43 20:54 22:30 Temp 97.9 98.9 97.9 98.9 Pulse 106 98 95 84 Resp 15 19 16 20 B/P (MAP) 101/63 98/54 (69) 118/72 (87) 89/54 (66) Pulse Ox 96 97 97 98 O2 Delivery Nasal Cannula Nasal Cannula Room Air Room Air O2 Flow Rate 2.0 2.0 11/04/20 11/05/20 11/05/20 11/05/20 23:00 03:00 04:15 05:21 Temp 97.4 97.4 Pulse 84 89 78 Resp 16 16 16 B/P (MAP) 76/49 (58) 85/47 (60) 98/50 (66) Pulse Ox 98 98 97 O2 Delivery Room Air Room Air Room Air Room Air Intake and Output 11/04/20 11/04/20 11/05/20 14:59 22:59 06:59 Intake Total 1000 ml Output Total 700 ml Balance 300 ml Justicifation of Admission Dx: Justifications for Admission: Justification of Admission Dx: Yes Sepsis: Bacteremia CHRISTOPHER HERNANDEZ MD Nov 05, 2020 09:26
[2020-11-05] MEDS ORDERED: CEFEPIME HCL IV Push 1 GM VIAL. IVP SCH (09:30)
[2020-11-05 10:38] LABS: BASO % 0 % (0-3); EOS # 0.1 x10^3/uL (0.0-0.7); EOS % 1 % (0-3); HEMATOCRIT 24.2 % (39.0-53.0); HEMOGLOBIN 7.9 g/dL (13.0-17.5); LYMPH # 1.4 x10^3/uL (1.0-4.8); LYMPH % 16 % (24-48); MEAN CORPUSCULAR HEMOGLOBIN 29 pg (25-35); MEAN CORPUSCULAR HGB CONC 33 g/dL (31-37); MEAN CORPUSCULAR VOLUME 88 fL (79-100); MONO # 0.7 x10^3/uL (0.0-1.1); MONO % 8 % (0-9); NEUT # 6.3 x10^3/uL (1.8-7.7); NEUT % 75 % (31-73); PLATELET COUNT 174 x10^3/uL (140-400); RED BLOOD COUNT 2.74 x10^6/uL (4.30-5.70); RED CELL DISTRIBUTION WIDTH 17.1 % (11.5-14.5); WHITE BLOOD COUNT 8.4 x10^3/uL (4.0-11.0)
--- NOTE | 2020-11-05 13:31 | CONS ---
REFERRING PHYSICIAN: Dr. López. REASON FOR CONSULTATION: Bacteremia. HISTORY OF PRESENT ILLNESS: This 75-year-old male was brought here from [facility] due to blood in the Harris catheter. The patient has chronic indwelling Harris catheter. They were trying to replace the Harris catheter. He was noted to have blood in the Harris catheter. He was supposed to go to [facility] for Urology care; however, they diverted him here because of hypotension. He required fluid bolus. He was given a dose of ceftriaxone. The patient had leukocytosis. Urine showed pyuria, hematuria. The patient had Harris placed. He currently is on cefepime. Blood cultures returned positive for gram-negative rods and GPC. He was started on linezolid. ID consultation has been requested for antibiotic management. The patient also has some cough. REVIEW OF SYSTEMS: Pt is Alert awake but does not answer any questions appears comfortable. PAST MEDICAL HISTORY: 1. Dementia. 2. Chronic indwelling Harris. 3. AFib. 4. CKD. 5. Frequent UTIs. PAST SURGICAL HISTORY: Unable to obtain. FAMILY HISTORY: Unable to obtain. SOCIAL HISTORY: No smoking, no alcohol in correctional facility. CURRENT MEDICATIONS: 1. Cefepime. 2. Linezolid. 3. Also received ceftriaxone. Other medications reviewed in medication list. ALLERGIES: No known drug allergies. PHYSICAL EXAMINATION: VITAL SIGNS: Temperature 98, pulse 91, respiratory rate 18, blood pressure 88/47, oxygen saturation 95% on 2 liters O2 by nasal cannula. security officers and guards present in the patient's room throughout the full exam. GENERAL: Alert, awake. Does not answer any questions. appears comfortable HEENT: Normocephalic, atraumatic. Anicteric. Poor dentition. Oral mucosa dry. NECK: Supple. No JVD. Right IJ clean. LUNGS: Clear anteriorly. HEART: S1, S2. No murmurs. ABDOMEN: Soft, nontender, nondistended. GENITOURINARY: Harris in place. EXTREMITIES: No edema, no cyanosis. DERMATOLOGIC: Warm, dry. No generalized rash. NEUROLOGIC: Alert awake does not answer any questions PSYCHIATRIC: Calm with underlying dementia. LABORATORY DATA: WBC 8.4, was 13.8. Hemoglobin 7.9, hematocrit 24.0, platelets 174. Creatinine 1.1. Lactate 2.1, repeat is 1.1. C-reactive protein 83. UA shows RBC too numerous to count, greater than 40 WBC's. SARS-COVID negative. MICRO: Blood culture, 2 out of 3 bottles positive for gram-positive cocci and gram-negative rods. IMAGING DATA: Chest x-ray, bibasilar atelectasis. IMPRESSION: 1. Sepsis, requiring IV fluid bolus. 2. Gram-negative and gram-positive bacteremia. 3. Leukocytosis. 4. Anemia. 5. Urinary tract infection. 6. Lactic acidosis. 7. Hematuria. 8. Dementia. 9. History of urinary retention with chronic indwelling Harris. 10. Atrial fibrillation. RECOMMENDATIONS: 1. Continue cefepime. 2. Discontinue Zyvox. 3. Start daptomycin. 4. Obtain CT abdomen and pelvis without. 5. Follow up labs and cultures. 6. Continue supportive care. 7. Maintain aspiration precaution. 8. Change Harris if not done already. Discussed with the nursing staff. Thank you for allowing me to participate in this patient's care. If you have any questions, do not hesitate to contact me. SAMIR DR: Mallika TID: [id number] ANN
--- NOTE | 2020-11-05 16:30 | RAD ---
CT ABDOMEN+PELVIS WO History: Gram-negative and gram-positive bacteremia, UTI. Comparison: None. Technique: CT abdomen pelvis without contrast. Findings: Small bilateral pleural effusions and adjacent dependent consolidations. The liver is unremarkable. The gallbladder is decompressed. The pancreas spleen and adrenal glands ar e unremarkable. Bilateral kidneys demonstrate perinephric fat stranding. Punctate nonobstructing bila teral nephrolithiasis. The bladder is decompressed by Harris catheter. There is mild wall thickening and perivesicular fat st randing. The stomach is decompressed. Lung segment wall thickening and mesenteric fat stranding of a loop of small bowel at the mid abdomen (axial image 59). No evidence of obstruction. Normal appendix. Mild sigmoid diverticulosis. No colonic wall thickening. Mild mesenteric/peritoneal fat stranding wi thout significant fluid collection. Mild aortic atherosclerotic calcification without aneurysm. No ab dominal pelvic adenopathy. Mild prostatic enlargement. Small fat-containing umbilical hernia and left inguinal canal. No acute osseous abnormalities. Impression: 1. Perinephric and perivesicular fat stranding consistent with provided history of urinary tract inf ection. 2. Segmental wall thickening and adjacent fat stranding of a loop of small bowel in the midabdomen c oncerning for enteritis. 3. No intra-abdominal abscess identified. ------ Exposure: One or more of the following individualized dose reduction techniques were utilized for thi s examination: 1. Automated exposure control 2. Adjustment of the mA and/or kV according to patient size 3. Use of iterative reconstruction technique. Electronically signed by: Magdaleno Coates MD (11/05/2020 4:27 PM) [id number]
[2020-11-05] MEDS: DAPTOmycin (GENERIC) IVPB 410 MG in IV NORMAL SALINE 50ML 50 ML IV SCH (16:55)
[2020-11-05] MEDS ORDERED: cefTRIAXone IV Push 1 GM VIAL. IVP SCH (17:00)
[2020-11-05] MEDS: CEFEPIME HCL IV Push 2 GM VIAL. IVP SCH (19:16)
[2020-11-06] VITALS (9 sets, daily range): BP systolic 105–155; BP diastolic 63–85
[2020-11-06] MEDS: CEFEPIME HCL IV Push 2 GM VIAL. IVP SCH ×4 (00:28→21:33)
[2020-11-06 04:55] LABS: BASO % 0 % (0-3); EOS # 0.1 x10^3/uL (0.0-0.7); EOS % 0 % (0-3); HEMATOCRIT 28.9 % (39.0-53.0); HEMOGLOBIN 9.5 g/dL (13.0-17.5); LYMPH # 1.9 x10^3/uL (1.0-4.8); LYMPH % 15 % (24-48); MEAN CORPUSCULAR HEMOGLOBIN 29 pg (25-35); MEAN CORPUSCULAR HGB CONC 33 g/dL (31-37); MEAN CORPUSCULAR VOLUME 87 fL (79-100); MONO # 0.8 x10^3/uL (0.0-1.1); MONO % 7 % (0-9); NEUT # 9.5 x10^3/uL (1.8-7.7); NEUT % 77 % (31-73); PLATELET COUNT 226 x10^3/uL (140-400); RED BLOOD COUNT 3.31 x10^6/uL (4.30-5.70); RED CELL DISTRIBUTION WIDTH 16.9 % (11.5-14.5); WHITE BLOOD COUNT 12.3 x10^3/uL (4.0-11.0)
[2020-11-06 05:32] LABS: ALBUMIN 2.3 g/dL (3.4-5.0); ALBUMIN/GLOBULIN RATIO 0.7 (1.0-1.7); CALCIUM 8.2 mg/dL (8.5-10.1); TOTAL BILIRUBIN 0.4 mg/dL (0.2-1.0); TOTAL PROTEIN 5.7 g/dL (6.4-8.2)
--- NOTE | 2020-11-06 07:50 | PDOC ---
Infectious Disease Note Subjective: Subjective Pt looks little better comfortable Denies any pain but did not answer any further questions bank guard at bedside T-max 99.5 Vital Signs: Vital Signs Vital Signs Date Time Temp Pulse Resp B/P (MAP) Pulse Ox O2 Delivery O2 Flow Rate FiO2 11/06/20 06:16 113 105/78 (87) 11/06/20 02:47 99.1 16 95 Room Air 99.1 Physical Exam: PHYSICAL EXAM GENERAL: Alert, awake. Does not answer any questions. appears comfortable HEENT: Normocephalic, atraumatic. Anicteric. Poor dentition. Oral mucosa dry. NECK: Supple. No JVD. Right IJ clean. LUNGS: Clear anteriorly. HEART: S1, S2. No murmurs. ABDOMEN: Soft, nontender, nondistended. GENITOURINARY: Harris in place. EXTREMITIES: No edema, no cyanosis. DERMATOLOGIC: Warm, dry. No generalized rash. NEUROLOGIC: Alert awake does not answer any questions PSYCHIATRIC: Calm Medications: Inpatient Meds: Medications reviewed. Labs: Lab Laboratory Tests Test 11/05/20 09:51 11/06/20 04:00 White Blood Count 8.4 x10^3/uL (4.0-11.0) 12.3 x10^3/uL (4.0-11.0) Red Blood Count 2.74 x10^6/uL (4.30-5.70) 3.31 x10^6/uL (4.30-5.70) Hemoglobin 7.9 g/dL (13.0-17.5) 9.5 g/dL (13.0-17.5) Hematocrit 24.2 % (39.0-53.0) 28.9 % (39.0-53.0) Mean Corpuscular Volume 88 fL (79-100) 87 fL (79-100) Mean Corpuscular Hemoglobin 29 pg (25-35) 29 pg (25-35) Mean Corpuscular Hemoglobin Concent 33 g/dL (31-37) 33 g/dL (31-37) Red Cell Distribution Width 17.1 % (11.5-14.5) 16.9 % (11.5-14.5) Platelet Count 174 x10^3/uL (140-400) 226 x10^3/uL (140-400) Neutrophils (%) (Auto) 75 % (31-73) 77 % (31-73) Lymphocytes (%) (Auto) 16 % (24-48) 15 % (24-48) Monocytes (%) (Auto) 8 % (0-9) 7 % (0-9) Eosinophils (%) (Auto) 1 % (0-3) 0 % (0-3) Basophils (%) (Auto) 0 % (0-3) 0 % (0-3) Neutrophils # (Auto) 6.3 x10^3/uL (1.8-7.7) 9.5 x10^3/uL (1.8-7.7) Lymphocytes # (Auto) 1.4 x10^3/uL (1.0-4.8) 1.9 x10^3/uL (1.0-4.8) Monocytes # (Auto) 0.7 x10^3/uL (0.0-1.1) 0.8 x10^3/uL (0.0-1.1) Eosinophils # (Auto) 0.1 x10^3/uL (0.0-0.7) 0.1 x10^3/uL (0.0-0.7) Basophils # (Auto) 0.0 x10^3/uL (0.0-0.2) 0.0 x10^3/uL (0.0-0.2) C-Reactive Protein, Quantitative 83.0 mg/L (0-3.3) Procalcitonin ng/mL (0.00-0.10) Sodium Level 142 mmol/L (136-145) Potassium Level 4.0 mmol/L (3.5-5.1) Chloride Level 109 mmol/L (98-107) Carbon Dioxide Level 22 mmol/L (21-32) Anion Gap 11 (6-14) Blood Urea Nitrogen 14 mg/dL (8-26) Creatinine 1.0 mg/dL (0.7-1.3) Estimated GFR (Cockcroft-Gault) 73.0 BUN/Creatinine Ratio 14 (6-20) Glucose Level 83 mg/dL (70-99) Calcium Level 8.2 mg/dL (8.5-10.1) Total Bilirubin 0.4 mg/dL (0.2-1.0) Aspartate Amino Transf (AST/SGOT) 26 U/L (15-37) Alanine Aminotransferase (ALT/SGPT) 22 U/L (16-63) Alkaline Phosphatase 63 U/L (46-116) Total Protein 5.7 g/dL (6.4-8.2) Albumin 2.3 g/dL (3.4-5.0) Albumin/Globulin Ratio 0.7 (1.0-1.7) Objective: Assessment: 1. Sepsis, requiring IV fluid bolus. 2. Gram-negative and gram-positive bacteremia poa. 3. Leukocytosis. 4. Anemia. 5. Urinary tract infection. Perinephric stranding on CT 6. Lactic acidosis. Possible enteritis 7. Hematuria. 8. Dementia. 9. History of urinary retention with chronic indwelling Harris. 10. Atrial fibrillation. CT abdomen and pelvis November 05 Impression: 1. Perinephric and perivesicular fat stranding consistent with provided history of urinary tract infection. 2. Segmental wall thickening and adjacent fat stranding of a loop of small bowel in the midabdomen concerning for enteritis. 3. No intra-abdominal abscess identified. Plan: Plan of Care 1. Continue cefepim and daptomycin. 2. CT abdomen and pelvis without noted. 3. Repeat blood cultures 11/06 4. Follow up labs and cultures. 5. Maintain aspiration precaution. 6. Change Harris if not done already. 7. Continue supportive care Discussed with the nursing staff. LILIYA BARBER MD Nov 06, 2020 07:50
[2020-11-06] MEDS: LACTOBACILLUS RHAMNOSUS GG 1 CAPSULE. PO SCH ×2 (08:04→21:33)
--- NOTE | 2020-11-06 09:15 | PDOC ---
PROGRESS NOTES Date of Service: DATE: 11/06/20 TIME: 09:12 Chief Complaint Chief Complaint FINDINGS: The cardiomediastinal silhouette and pulmonary vessels are within normal limits. Strandy bibasilar airspace disease. No pleural effusion. IMPRESSION: Bibasilar atelectasis. VTE Prophylaxis Ordered VTE Prophylaxis Devices: Yes VTE Pharmacological Prophylaxi: No Assessment/Plan Assessment/Plan Urosepsis Acute cystitis Chronic indwelling Harris Hematuria secondary to chronic indwelling Harris Normocytic anemia Atrial fibrillation Dementia Severe malnutrition Segmental wall thickening and adjacent fat stranding of a loop of small bowel in the midabdomen concerning for enteritis. Plan: continuous IV fluids Harris catheter was changed in the ED Provide pain medications home medications we can once identified FEN - Cardiac diet PPX - SCDs FULL CODE Dispo - inpatient for above Discussed with patient but did not name surrogate decision-maker Continue cefepime. Discontinue Zyvox. CONTINUE IVdaptomycin. CT abdomen and pelvis. REPEAT BLOOD CULTURES CONSULT GI RE ABNORMAL CT Continue cefepim and daptomycin. d/w RN Justifications for Admission Justifications for Admission Other Justification History of Present Illness History of Present Illness Identification/Chief Complaint Chief Complaint Blood in urine Source Source: Chart review History of Present Illness History of Present Illness Patient 75-year-old male with past medical history dementia, chronic indwelling Harris catheter, who presents from [facility] due to blood found in his Harris catheter. His Harris was recently changed at his correctional facility, he was sent to the ED due to continued bleeding. He was supposed to follow-up at [facility] for urology, however they never returned to [facility] because his blood pressure was low, 84/40 mmHg. Upon arrival in the ED he was tachycardic, afebrile, we did require 2 L nasal cannula due to some hypoxia. Labs on admission showed WBC 13.8, hemoglobin 8.6, hematocrit 26.5, MCV 88, platelets 225, lactic acid 2.1, albumin 2.0. His rapid COVID-19 was negative. His urinalysis showed RBCs TNTC, WBC >40, urine bacteria moderate, further UA results were not performed likely due to gross hematuria. He has been vaccinated against COVID-19. He received Rocephin 1 g and IV fluids. Will admit patient for further medical management. Past Medical History Past Medical History Dementia, A. fib, CKD, frequent UTIs Past Surgical History Past Surgical History Reviewed with patient but unable to obtain due to clinical history of dementia Family History Family History Reviewed with patient but unable to obtain due to clinical history dementia Social History Smoke: No ALCOHOL: none Drugs: None Current Problem List Problem List Problems Medical Problems: (1) Person under investigation for COVID-19 Status: Acute (2) Sepsis Status: Acute (3) UTI (urinary tract infection) Status: Acute Current Medications Current Medications Current Medications Sodium Chloride 1,000 ml @ 1,000 mls/hr 1X ONCE IV Last administered on 11/04/20at 16:30; Start 11/04/20 at 16:30; Stop 11/04/20 at 17:29; Status DC Ceftriaxone Sodium (Rocephin) 1 gm 1X ONCE IVP Last administered on 11/04/20at 17:38; Start 11/04/20 at 17:00; Stop 11/04/20 at 17:01; Status DC Magnesium Sulfate 50 ml @ 25 mls/hr 1X ONCE IV Last administered on 11/04/20at 17:43; Start 11/04/20 at 17:30; Stop 11/04/20 at 19:29 Calcium Gluconate (Calcium Gluconate) 1,000 mg 1X ONCE IVP ; Start 11/04/20 at 17:30; Stop 11/04/20 at 17:31; Status UNV Calcium Gluconate 1000 mg/Sodium Chloride 110 ml @ 220 mls/hr 1X ONCE IV Last administered on 11/04/20at 18:11; Start 11/04/20 at 17:30; Stop 11/04/20 at 17:59; Status DC Ondansetron HCl (Zofran) 4 mg PRN Q8HRS PRN IVP NAUSEA/VOMITING; Start 11/04/20 at 18:30; Stop 11/05/20 at 18:29 Sodium Chloride 1,000 ml @ 125 mls/hr Q8H IV ; Start 11/04/20 at 18:30; Stop 11/05/20 at 18:29 Allergies Allergies: Coded Allergies: No Known Drug Allergies (Unverified , 11/04/20) Vitals Vitals Vital Signs Date Time Temp Pulse Resp B/P (MAP) Pulse Ox O2 Delivery O2 Flow Rate FiO2 11/06/20 06:16 113 105/78 (87) 11/06/20 02:47 99.1 16 95 Room Air 99.1 Physical Exam Physical Exam GENERAL: Alert, awake. Does not answer any questions. appears comfortable HEENT: Normocephalic, atraumatic. Anicteric. Poor dentition. Oral mucosa dry. NECK: Supple. No JVD. Right IJ clean. LUNGS: Clear anteriorly. HEART: S1, S2. No murmurs. ABDOMEN: Soft, nontender, nondistended. GENITOURINARY: Harris in place. EXTREMITIES: No edema, no cyanosis. DERMATOLOGIC: Warm, dry. No generalized rash. NEUROLOGIC: Alert awake does not answer any questions PSYCHIATRIC: Calm General: Alert, Cooperative, No acute distress Heart: Regular rate, Normal S1 Lungs: Clear Abdomen: Normal bowel sounds, Soft, No tenderness Extremities: No cyanosis Labs LABS PATIENT: XAVI LEWIS ACCOUNT: [id number] : 1945 LOCATION: [address] [place] [address] AGE: 75 SEX: M EXAM STATUS: ADM IN ORD. PHYSICIAN: LILIYA BARBER MD REASON: gram neg and gram pos bacteremia, uti PROCEDURE: CT ABDOMEN PELVIS WO CONTRAST CT ABDOMEN+PELVIS WO History: Gram-negative and gram-positive bacteremia, UTI. Comparison: None. Technique: CT abdomen pelvis without contrast. Findings: Small bilateral pleural effusions and adjacent dependent consolidations. The liver is unremarkable. The gallbladder is decompressed. The pancreas spleen and adrenal glands are unremarkable. Bilateral kidneys demonstrate perinephric fat stranding. Punctate nonobstructing bilateral nephrolithiasis. The bladder is decompressed by Harris catheter. There is mild wall thickening and perivesicular fat stranding. The stomach is decompressed. Lung segment wall thickening and mesenteric fat stranding of a loop of small bowel at the mid abdomen (axial image 59). No evidence of obstruction. Normal appendix. Mild sigmoid diverticulosis. No colonic wall thickening. Mild mesenteric/peritoneal fat stranding without significant fluid collection. Mild aortic atherosclerotic calcification without aneurysm. No abdominal pelvic adenopathy. Mild prostatic enlargement. Small fat-containing umbilical hernia and left inguinal canal. No acute osseous abnormalities. Impression: 1. Perinephric and perivesicular fat stranding consistent with provided history of urinary tract infection. 2. Segmental wall thickening and adjacent fat stranding of a loop of small bowel in the midabdomen concerning for enteritis. 3. No intra-abdominal abscess identified. ------ Exposure: One or more of the following individualized dose reduction techniques were utilized for this examination: 1. Automated exposure control 2. Adjustment of the mA and/or kV according to patient size 3. Use of iterative reconstruction technique. Electronically signed by: Magdaleno Overton MD (11/05/2020 4:27 PM) [id number] DICTATED and SIGNED BY: MAGDALENO OVERTON MD DATE: 11/05/20 [id number] Laboratory Tests Test 11/05/20 09:51 11/06/20 04:00 White Blood Count 8.4 x10^3/uL (4.0-11.0) 12.3 x10^3/uL (4.0-11.0) Red Blood Count 2.74 x10^6/uL (4.30-5.70) 3.31 x10^6/uL (4.30-5.70) Hemoglobin 7.9 g/dL (13.0-17.5) 9.5 g/dL (13.0-17.5) Hematocrit 24.2 % (39.0-53.0) 28.9 % (39.0-53.0) Mean Corpuscular Volume 88 fL (79-100) 87 fL (79-100) Mean Corpuscular Hemoglobin 29 pg (25-35) 29 pg (25-35) Mean Corpuscular Hemoglobin Concent 33 g/dL (31-37) 33 g/dL (31-37) Red Cell Distribution Width 17.1 % (11.5-14.5) 16.9 % (11.5-14.5) Platelet Count 174 x10^3/uL (140-400) 226 x10^3/uL (140-400) Neutrophils (%) (Auto) 75 % (31-73) 77 % (31-73) Lymphocytes (%) (Auto) 16 % (24-48) 15 % (24-48) Monocytes (%) (Auto) 8 % (0-9) 7 % (0-9) Eosinophils (%) (Auto) 1 % (0-3) 0 % (0-3) Basophils (%) (Auto) 0 % (0-3) 0 % (0-3) Neutrophils # (Auto) 6.3 x10^3/uL (1.8-7.7) 9.5 x10^3/uL (1.8-7.7) Lymphocytes # (Auto) 1.4 x10^3/uL (1.0-4.8) 1.9 x10^3/uL (1.0-4.8) Monocytes # (Auto) 0.7 x10^3/uL (0.0-1.1) 0.8 x10^3/uL (0.0-1.1) Eosinophils # (Auto) 0.1 x10^3/uL (0.0-0.7) 0.1 x10^3/uL (0.0-0.7) Basophils # (Auto) 0.0 x10^3/uL (0.0-0.2) 0.0 x10^3/uL (0.0-0.2) C-Reactive Protein, Quantitative 83.0 mg/L (0-3.3) Procalcitonin ng/mL (0.00-0.10) Sodium Level 142 mmol/L (136-145) Potassium Level 4.0 mmol/L (3.5-5.1) Chloride Level 109 mmol/L (98-107) Carbon Dioxide Level 22 mmol/L (21-32) Anion Gap 11 (6-14) Blood Urea Nitrogen 14 mg/dL (8-26) Creatinine 1.0 mg/dL (0.7-1.3) Estimated GFR (Cockcroft-Gault) 73.0 BUN/Creatinine Ratio 14 (6-20) Glucose Level 83 mg/dL (70-99) Calcium Level 8.2 mg/dL (8.5-10.1) Total Bilirubin 0.4 mg/dL (0.2-1.0) Aspartate Amino Transf (AST/SGOT) 26 U/L (15-37) Alanine Aminotransferase (ALT/SGPT) 22 U/L (16-63) Alkaline Phosphatase 63 U/L (46-116) Total Protein 5.7 g/dL (6.4-8.2) Albumin 2.3 g/dL (3.4-5.0) Albumin/Globulin Ratio 0.7 (1.0-1.7) Assessment and Plan Assessmemt and Plan Problems Medical Problems: (1) Person under investigation for COVID-19 Status: Acute (2) Sepsis Status: Acute (3) UTI (urinary tract infection) Status: Acute Comment Review of Relevant I have reviewed the following items jose cruz (where applicable) has been applied. Labs Laboratory Tests Test 11/04/20 16:40 11/04/20 17:00 11/04/20 20:14 11/05/20 09:51 White Blood Count 13.8 x10^3/uL (4.0-11.0) 8.4 x10^3/uL (4.0-11.0) Red Blood Count 3.03 x10^6/uL (4.30-5.70) 2.74 x10^6/uL (4.30-5.70) Hemoglobin 8.6 g/dL (13.0-17.5) 7.9 g/dL (13.0-17.5) Hematocrit 26.5 % (39.0-53.0) 24.2 % (39.0-53.0) Mean Corpuscular Volume 88 fL (79-100) 88 fL (79-100) Mean Corpuscular Hemoglobin 28 pg (25-35) 29 pg (25-35) Mean Corpuscular Hemoglobin Concent 32 g/dL (31-37) 33 g/dL (31-37) Red Cell Distribution Width 16.9 % (11.5-14.5) 17.1 % (11.5-14.5) Platelet Count 220 x10^3/uL (140-400) 174 x10^3/uL (140-400) Neutrophils (%) (Auto) 96 % (31-73) 75 % (31-73) Lymphocytes (%) (Auto) 2 % (24-48) 16 % (24-48) Monocytes (%) (Auto) 2 % (0-9) 8 % (0-9) Eosinophils (%) (Auto) 0 % (0-3) 1 % (0-3) Basophils (%) (Auto) 0 % (0-3) 0 % (0-3) Neutrophils # (Auto) 13.2 x10^3/uL (1.8-7.7) 6.3 x10^3/uL (1.8-7.7) Lymphocytes # (Auto) 0.3 x10^3/uL (1.0-4.8) 1.4 x10^3/uL (1.0-4.8) Monocytes # (Auto) 0.3 x10^3/uL (0.0-1.1) 0.7 x10^3/uL (0.0-1.1) Eosinophils # (Auto) 0.0 x10^3/uL (0.0-0.7) 0.1 x10^3/uL (0.0-0.7) Basophils # (Auto) 0.0 x10^3/uL (0.0-0.2) 0.0 x10^3/uL (0.0-0.2) Segmented Neutrophils % 81 % (35-66) Band Neutrophils % 15 % (0-9) Lymphocytes % 2 % (24-48) Monocytes % 2 % (0-10) Dohle Bodies Present Platelet Estimate Adequate (ADEQUATE) Urine Collection Type Unknown Urine Color Brown Urine Clarity Bloody Urine pH (<5.0-8.0) Urine Specific [place] (1.000-1.030) Urine Protein mg/dL (NEG-TRACE) Urine Glucose (UA) mg/dL (NEG) Urine Ketones (Stick) mg/dL (NEG) Urine Blood (NEG) Urine Nitrite (NEG) Urine Bilirubin (NEG) Urine Urobilinogen Dipstick mg/dL (0.2 mg/dL) Urine Leukocyte Esterase (NEG) Urine RBC Tntc /HPF (0-2) Urine WBC >40 /HPF (0-4) Urine Bacteria Moderate /HPF (0-FEW) Sodium Level 139 mmol/L (136-145) Potassium Level 3.9 mmol/L (3.5-5.1) Chloride Level 107 mmol/L (98-107) Carbon Dioxide Level 25 mmol/L (21-32) Anion Gap 7 (6-14) Blood Urea Nitrogen 22 mg/dL (8-26) Creatinine 1.1 mg/dL (0.7-1.3) Estimated GFR (Cockcroft-Gault) 65.4 BUN/Creatinine Ratio 20 (6-20) Glucose Level 103 mg/dL (70-99) Lactic Acid Level 2.1 mmol/L (0.4-2.0) 1.1 mmol/L (0.4-2.0) Calcium Level 7.7 mg/dL (8.5-10.1) Magnesium Level 1.6 mg/dL (1.8-2.4) Total Bilirubin 0.2 mg/dL (0.2-1.0) Aspartate Amino Transf (AST/SGOT) 18 U/L (15-37) Alanine Aminotransferase (ALT/SGPT) 19 U/L (16-63) Alkaline Phosphatase 62 U/L (46-116) Total Protein 4.8 g/dL (6.4-8.2) Albumin 2.0 g/dL (3.4-5.0) Albumin/Globulin Ratio 0.7 (1.0-1.7) SARS-CoV-2 RNA (MELISSA) Negative (Negative) SARS-CoV-2 Antigen (Rapid) Negative (NEGATIVE) C-Reactive Protein, Quantitative 83.0 mg/L (0-3.3) Procalcitonin ng/mL (0.00-0.10) Test 11/06/20 04:00 White Blood Count 12.3 x10^3/uL (4.0-11.0) Red Blood Count 3.31 x10^6/uL (4.30-5.70) Hemoglobin 9.5 g/dL (13.0-17.5) Hematocrit 28.9 % (39.0-53.0) Mean Corpuscular Volume 87 fL (79-100) Mean Corpuscular Hemoglobin 29 pg (25-35) Mean Corpuscular Hemoglobin Concent 33 g/dL (31-37) Red Cell Distribution Width 16.9 % (11.5-14.5) Platelet Count 226 x10^3/uL (140-400) Neutrophils (%) (Auto) 77 % (31-73) Lymphocytes (%) (Auto) 15 % (24-48) Monocytes (%) (Auto) 7 % (0-9) Eosinophils (%) (Auto) 0 % (0-3) Basophils (%) (Auto) 0 % (0-3) Neutrophils # (Auto) 9.5 x10^3/uL (1.8-7.7) Lymphocytes # (Auto) 1.9 x10^3/uL (1.0-4.8) Monocytes # (Auto) 0.8 x10^3/uL (0.0-1.1) Eosinophils # (Auto) 0.1 x10^3/uL (0.0-0.7) Basophils # (Auto) 0.0 x10^3/uL (0.0-0.2) Sodium Level 142 mmol/L (136-145) Potassium Level 4.0 mmol/L (3.5-5.1) Chloride Level 109 mmol/L (98-107) Carbon Dioxide Level 22 mmol/L (21-32) Anion Gap 11 (6-14) Blood Urea Nitrogen 14 mg/dL (8-26) Creatinine 1.0 mg/dL (0.7-1.3) Estimated GFR (Cockcroft-Gault) 73.0 BUN/Creatinine Ratio 14 (6-20) Glucose Level 83 mg/dL (70-99) Calcium Level 8.2 mg/dL (8.5-10.1) Total Bilirubin 0.4 mg/dL (0.2-1.0) Aspartate Amino Transf (AST/SGOT) 26 U/L (15-37) Alanine Aminotransferase (ALT/SGPT) 22 U/L (16-63) Alkaline Phosphatase 63 U/L (46-116) Total Protein 5.7 g/dL (6.4-8.2) Albumin 2.3 g/dL (3.4-5.0) Albumin/Globulin Ratio 0.7 (1.0-1.7) Laboratory Tests Test 11/05/20 09:51 11/06/20 04:00 White Blood Count 8.4 x10^3/uL (4.0-11.0) 12.3 x10^3/uL (4.0-11.0) Red Blood Count 2.74 x10^6/uL (4.30-5.70) 3.31 x10^6/uL (4.30-5.70) Hemoglobin 7.9 g/dL (13.0-17.5) 9.5 g/dL (13.0-17.5) Hematocrit 24.2 % (39.0-53.0) 28.9 % (39.0-53.0) Mean Corpuscular Volume 88 fL (79-100) 87 fL (79-100) Mean Corpuscular Hemoglobin 29 pg (25-35) 29 pg (25-35) Mean Corpuscular Hemoglobin Concent 33 g/dL (31-37) 33 g/dL (31-37) Red Cell Distribution Width 17.1 % (11.5-14.5) 16.9 % (11.5-14.5) Platelet Count 174 x10^3/uL (140-400) 226 x10^3/uL (140-400) Neutrophils (%) (Auto) 75 % (31-73) 77 % (31-73) Lymphocytes (%) (Auto) 16 % (24-48) 15 % (24-48) Monocytes (%) (Auto) 8 % (0-9) 7 % (0-9) Eosinophils (%) (Auto) 1 % (0-3) 0 % (0-3) Basophils (%) (Auto) 0 % (0-3) 0 % (0-3) Neutrophils # (Auto) 6.3 x10^3/uL (1.8-7.7) 9.5 x10^3/uL (1.8-7.7) Lymphocytes # (Auto) 1.4 x10^3/uL (1.0-4.8) 1.9 x10^3/uL (1.0-4.8) Monocytes # (Auto) 0.7 x10^3/uL (0.0-1.1) 0.8 x10^3/uL (0.0-1.1) Eosinophils # (Auto) 0.1 x10^3/uL (0.0-0.7) 0.1 x10^3/uL (0.0-0.7) Basophils # (Auto) 0.0 x10^3/uL (0.0-0.2) 0.0 x10^3/uL (0.0-0.2) C-Reactive Protein, Quantitative 83.0 mg/L (0-3.3) Procalcitonin ng/mL (0.00-0.10) Sodium Level 142 mmol/L (136-145) Potassium Level 4.0 mmol/L (3.5-5.1) Chloride Level 109 mmol/L (98-107) Carbon Dioxide Level 22 mmol/L (21-32) Anion Gap 11 (6-14) Blood Urea Nitrogen 14 mg/dL (8-26) Creatinine 1.0 mg/dL (0.7-1.3) Estimated GFR (Cockcroft-Gault) 73.0 BUN/Creatinine Ratio 14 (6-20) Glucose Level 83 mg/dL (70-99) Calcium Level 8.2 mg/dL (8.5-10.1) Total Bilirubin 0.4 mg/dL (0.2-1.0) Aspartate Amino Transf (AST/SGOT) 26 U/L (15-37) Alanine Aminotransferase (ALT/SGPT) 22 U/L (16-63) Alkaline Phosphatase 63 U/L (46-116) Total Protein 5.7 g/dL (6.4-8.2) Albumin 2.3 g/dL (3.4-5.0) Albumin/Globulin Ratio 0.7 (1.0-1.7) Microbiology 11/04/20 Blood Culture - Preliminary, Resulted NO GROWTH AFTER 1 DAY Medications Current Medications Sodium Chloride 1,000 ml @ 1,000 mls/hr 1X ONCE IV Last administered on 10/18 11/07at 16:30; Start 11/04/20 at 16:30; Stop 11/04/20 at 17:29; Status DC Ceftriaxone Sodium (Rocephin) 1 gm 1X ONCE IVP Last administered on 11/04/20at 17:38; Start 11/04/20 at 17:00; Stop 11/04/20 at 17:01; Status DC Magnesium Sulfate 50 ml @ 25 mls/hr 1X ONCE IV Last administered on 11/04/20at 17:43; Start 11/04/20 at 17:30; Stop 11/04/20 at 19:29; Status DC Calcium Gluconate (Calcium Gluconate) 1,000 mg 1X ONCE IVP ; Start 11/04/20 at 17:30; Stop 11/04/20 at 17:31; Status UNV Calcium Gluconate 1000 mg/Sodium Chloride 110 ml @ 220 mls/hr 1X ONCE IV Last administered on 11/04/20at 18:11; Start 11/04/20 at 17:30; Stop 11/04/20 at 17:59; Status DC Ondansetron HCl (Zofran) 4 mg PRN Q8HRS PRN IVP NAUSEA/VOMITING; Start 11/04/20 at 18:30; Stop 11/05/20 at 07:38; Status DC Sodium Chloride 1,000 ml @ 125 mls/hr Q8H IV Last administered on 11/05/20at 10:30; Start 11/04/20 at 18:30; Stop 11/05/20 at 18:29; Status DC Ceftriaxone Sodium (Rocephin) 1 gm Q24H IVP ; Start 11/05/20 at 17:00; Stop 11/05/20 at 09:31; Status DC Morphine Sulfate (Morphine Sulfate) 4 mg PRN Q3HRS PRN IVP PAIN; Start 11/04/20 at 19:00 Ondansetron HCl (Zofran) 4 mg PRN Q6HRS PRN IVP NAUSEA/VOMITING; Start 11/04/20 at 19:15 Al Hydroxide/Mg Hydroxide (Mylanta Plus Xs) 30 ml PRN Q3HRS PRN PO HEARTBURN / GAS; Start 11/04/20 at 19:15 Calcium Carbonate/ Glycine (Tums) 500 mg PRN Q3HRS PRN PO UPSET STOMACH; Start 11/04/20 at 19:15 Zolpidem Tartrate (Ambien) 5 mg PRN QHS PRN PO INSOMNIA, MAY REPEAT IN 1HR; Start 11/04/20 at 19:15 Acetaminophen/ Hydrocodone Bitart (Lortab 5/325) 1 tab PRN Q4HRS PRN PO MODERATE-SEVERE PAIN; Start 11/04/20 at 19:15 Acetaminophen (Tylenol) 650 mg PRN Q6HRS PRN PO Headaches, Temp > 101.5F; Start 11/04/20 at 19:15 Magnesium Hydroxide (Milk Of Magnesia) 2,400 mg PRN Q12HR PRN PO CONSTIPATION; Start 11/04/20 at 19:15 Haloperidol Lactate (Haldol Inj) 5 mg PRN Q6HRS PRN IVP AGITATION; Start 11/04/20 at 19:15 Lorazepam (Ativan Inj) 2 mg PRN Q6HRS PRN IVP ANXIETY / AGITATION-1ST CHOICE Last administered on 11/04/20at 20:41; Start 11/04/20 at 19:15 Sodium Chloride 1,000 ml @ 100 mls/hr 1X ONCE IV ; Start 11/04/20 at 19:30; Stop 11/05/20 at 05:29; Status DC Lactobacillus Rhamnosus (Culturelle) 1 cap BID PO ; Start 11/05/20 at 09:00 Cefepime HCl (Maxipime) 1 gm Q12HR IVP Last administered on 11/05/20at 09:41; Start 11/05/20 at 09:30; Stop 11/05/20 at 17:27; Status DC Linezolid/Dextrose 300 ml @ 300 mls/hr Q12HR IV ; Start 11/05/20 at 21:00; Stop 11/05/20 at 13:04; Status DC Linezolid/Dextrose 300 ml @ 300 mls/hr 1X ONCE IV Last administered on 11/05/20at 13:25; Start 11/05/20 at 09:45; Stop 11/05/20 at 10:44; Status DC Daptomycin 410 mg/ Sodium Chloride 50 ml @ 100 mls/hr Q24H IV Last administered on 11/05/20at 16:55; Start 11/05/20 at 14:00 Diltiazem HCl 125 mg/Sodium Chloride 125 ml @ 5 mls/hr CONT PRN IV SEE I/O RECORD Last administered on 11/06/20at 04:02; Start 11/05/20 at 16:30 Cefepime HCl (Maxipime) 2 gm Q8HRS IVP Last administered on 11/06/20at 05:15; Start 11/05/20 at 17:30 Active Scripts Active Reported Vitamin B-1 (Thiamine Hcl) 100 Mg Tablet 100 Mg PO DAILY Thera-Gel (Lea Tar) 251 Ml Shampoo 251 Ml TP 3X/WEEK Flomax (Tamsulosin Hcl) 0.4 Mg Cap.er.24h 0.8 Mg PO HS Miralax (Polyethylene Glycol 3350) 17 Gm Powd.pack 1 Pkt PO DAILY Metoprolol Tartrate 25 Mg Tablet 25 Mg PO BID Haloperidol 2 Mg Tablet 1 Tab PO BID Finasteride 5 Mg Tablet 5 Mg PO DAILY Eliquis (Apixaban) 5 Mg Tablet 5 Mg PO BID Docusate Sodium 100 Mg Capsule 1 Cap PO BID 15 Days B-12 (Cyanocobalamin (Vitamin B-12)) 1,000 Mcg Tablet.er 1,000 Mcg PO DAILY Amiodarone Hcl 200 Mg Tablet 200 Mg PO DAILY Acetaminophen 325 Mg Tablet 650 Mg PO QID Abilify (Aripiprazole) 2 Mg Tablet 2 Mg PO HS Vitals/I & O Vital Sign - Last 24 Hours 11/05/20 11/05/20 11/05/20 11/05/20 11:30 15:00 19:00 20:00 Temp 98.0 98.4 99.2 98.0 98.4 99.2 Pulse 91 111 108 Resp 18 16 18 B/P (MAP) 88/47 (61) 111/61 (78) 148/67 (94) Pulse Ox 95 99 O2 Delivery Room Air Room Air Room Air 11/05/20 11/05/20 11/05/20 11/05/20 20:26 21:59 22:56 23:00 Temp 99.5 99.5 Pulse 126 112 117 100 Resp 16 B/P (MAP) 148/82 (104) 149/82 (104) 150/73 (98) 143/64 (90) Pulse Ox 92 O2 Delivery Room Air 11/06/20 11/06/20 11/06/20 11/06/20 02:31 02:47 04:06 05:26 Temp 99.1 99.1 Pulse 112 115 110 97 Resp 16 B/P (MAP) 155/68 (97) 154/70 (98) 148/78 (101) 129/75 (93) Pulse Ox 95 O2 Delivery Room Air 11/06/20 06:16 Pulse 113 B/P (MAP) 105/78 (87) Intake and Output 11/05/20 11/05/20 11/06/20 15:00 23:00 07:00 Intake Total 0 ml 125 ml Output Total 850 ml Balance -850 ml 125 ml Justicifation of Admission Dx: Justifications for Admission: Justification of Admission Dx: Yes Sepsis: Bacteremia CHRISTOPHER HERNANDEZ MD Nov 06, 2020 09:15
--- NOTE | 2020-11-06 11:04 | PDOC2 ---
GI CONSULT Date of Service: DATE: 11/06/20 TIME: 10:54 Reason For Consult: abnormal CT abdomen HPI: HPI: 75 y/o male w/ dementia from correctional facility w/ UTI and bacteremia. No meaningful history from pt except he denies pain. Per nurse, no GI concerns. No vomiting, no c/o pain, no diarrhea, no bleeding. In fact, has not stooled. Eats very well if has help. Summary list includes Eliquis, amiodarone, and B12. PMH: PMH: per chart: A Fib, CKD, UTIs, dementia, nephrolithiasis, diverticulosis, psych issues FH: Family History: Other (unable to obtain) ROS: see HPI, denies pain Vitals: Vitals: Vital Signs Date Time Temp Pulse Resp B/P (MAP) Pulse Ox O2 Delivery O2 Flow Rate FiO2 11/06/20 06:16 113 105/78 (87) 11/06/20 02:47 99.1 16 95 Room Air 99.1 Labs: Labs: Laboratory Tests Test 11/06/20 04:00 White Blood Count 12.3 x10^3/uL (4.0-11.0) Red Blood Count 3.31 x10^6/uL (4.30-5.70) Hemoglobin 9.5 g/dL (13.0-17.5) Hematocrit 28.9 % (39.0-53.0) Mean Corpuscular Volume 87 fL (79-100) Mean Corpuscular Hemoglobin 29 pg (25-35) Mean Corpuscular Hemoglobin Concent 33 g/dL (31-37) Red Cell Distribution Width 16.9 % (11.5-14.5) Platelet Count 226 x10^3/uL (140-400) Neutrophils (%) (Auto) 77 % (31-73) Lymphocytes (%) (Auto) 15 % (24-48) Monocytes (%) (Auto) 7 % (0-9) Eosinophils (%) (Auto) 0 % (0-3) Basophils (%) (Auto) 0 % (0-3) Neutrophils # (Auto) 9.5 x10^3/uL (1.8-7.7) Lymphocytes # (Auto) 1.9 x10^3/uL (1.0-4.8) Monocytes # (Auto) 0.8 x10^3/uL (0.0-1.1) Eosinophils # (Auto) 0.1 x10^3/uL (0.0-0.7) Basophils # (Auto) 0.0 x10^3/uL (0.0-0.2) Sodium Level 142 mmol/L (136-145) Potassium Level 4.0 mmol/L (3.5-5.1) Chloride Level 109 mmol/L (98-107) Carbon Dioxide Level 22 mmol/L (21-32) Anion Gap 11 (6-14) Blood Urea Nitrogen 14 mg/dL (8-26) Creatinine 1.0 mg/dL (0.7-1.3) Estimated GFR (Cockcroft-Gault) 73.0 BUN/Creatinine Ratio 14 (6-20) Glucose Level 83 mg/dL (70-99) Calcium Level 8.2 mg/dL (8.5-10.1) Total Bilirubin 0.4 mg/dL (0.2-1.0) Aspartate Amino Transf (AST/SGOT) 26 U/L (15-37) Alanine Aminotransferase (ALT/SGPT) 22 U/L (16-63) Alkaline Phosphatase 63 U/L (46-116) Total Protein 5.7 g/dL (6.4-8.2) Albumin 2.3 g/dL (3.4-5.0) Albumin/Globulin Ratio 0.7 (1.0-1.7) URINE CULTURE Preliminary Preliminary GREATER THAN 100,000 CFU/ML [ESCHERICHIA COLI] on 11/06/20 at 0909 BLOOD CULTURE Final GRAM POSTIVE COCCI AND GRAM NEGATIVE RODS SEEN IN 2 OF 3 BOTTLES, 2 SETS COLLECTED. BLOOD CULTURE Preliminary NO GROWTH AFTER 1 DAY Allergies: Coded Allergies: No Known Drug Allergies (Unverified , 11/04/20) Medications: Current Medications Medications (Trade) Dose Ordered Sig/Betsy Route PRN Reason Start Time Stop Time Status Last Admin Dose Admin Daptomycin 410 mg/ Sodium Chloride 50 ml @ 100 mls/hr Q24H IV 11/05/20 14:00 11/05/20 16:55 Diltiazem HCl 125 mg/Sodium Chloride 125 ml @ 5 mls/hr CONT PRN IV SEE I/O RECORD 11/05/20 16:30 11/06/20 04:02 Cefepime HCl (Maxipime) 2 gm Q8HRS IVP 11/05/20 17:30 11/06/20 05:15 Imaging: Imaging: CXR IMPRESSION: Bibasilar atelectasis. CT A/P Impression: 1. Perinephric and perivesicular fat stranding consistent with provided history of urinary tract infection. 2. Segmental wall thickening and adjacent fat stranding of a loop of small bowel in the midabdomen concerning for enteritis. 3. No intra-abdominal abscess identified. PE: GEN: NAD HEENT: Atraumatic, PERRL LUNGS: tachypneic HEART: tachycardic/irregular ABD: NABS, S/ND/NT EXTREMITY: No edema SKIN: No rashes, no jaundice NEURO/PSYCH: awake and alert, speaks slowly and not often, confused A/P: A/P: Bacteremia/UTI Normocytic anemia Abnormal CT report: "segmental wall thickening and adjacent fat stranding of a loop of small bowel in the midabdomen concerning for enteritis" Diverticulosis H/o A Fib and dementia COVID negative -- Per staff, no GI symptoms - not vomiting and not having diarrhea (or any stools) and eating well. Exam benign. Observe from GI standpoint. Will check anemia parameters for completeness. BOY KANG Nov 06, 2020 11:04
--- NOTE | 2020-11-06 11:31 | PDOC2 ---
CARDIAC CONSULT DATE OF CONSULT Date of Consult DATE: 11/06/20 TIME: 11:02 REASON FOR CONSULT Reason for Consult: AFIB RVR REFERRING PHYSICIAN Referring Physician: Fullbrlouis SOURCE Source: Chart review HISTORY OF PRESENT ILLNESS HISTORY OF PRESENT ILLNESS This is a 75 yo female admitted from [facility] facility due to hematuria noted in his [place]. He was at [facility] on 07/2020 and was noted with acute cystitis/urinary retention with pseudomonas at that time as well as sepsis and AFIB RVR which was noted possibly new at that time. He was treated with amiodarone metoprolol eliquis at that time. He had an echocardiogram with an EF of 55% but I could not find the full report. He is suppose to follow up with [facility]. Consult today is for AFIB RVR which is now rate controlled. He is not vaccinated for covid-19. At the present time his urine is clear with no semblance of hematuria and VSS. He does not appear to be in any discomfort. He is alert and tracks with his eyes but would not speak up. Benigno has reported that he picks and chooses what he says and who he speaks to. PAST MEDICAL HISTORY Cardiovascular: AFIB, HTN Pulmonary: Other (aspiration) CENTRAL NERVOUS SYSTEM: Dementia Psych: Other (personaility disorder) Musculoskeletal: Osteoarthritis Renal/: Acute renal failure, UTI, Other (urinary retention) PAST SURGICAL HISTORY Past Surgical History: Other (unknown) FAMILY HISTORY Family History: Family History Unknown SOCIAL HISTORY Smoke: No ALCOHOL: none Drugs: None Lives: Alone CURRENT MEDICATIONS CURRENT MEDICATIONS Current Medications Medications (Trade) Dose Ordered Sig/Betsy Route PRN Reason Start Time Stop Time Status Last Admin Dose Admin Daptomycin 410 mg/ Sodium Chloride 50 ml @ 100 mls/hr Q24H IV 11/05/20 14:00 11/05/20 16:55 Diltiazem HCl 125 mg/Sodium Chloride 125 ml @ 5 mls/hr CONT PRN IV SEE I/O RECORD 11/05/20 16:30 11/06/20 04:02 Cefepime HCl (Maxipime) 2 gm Q8HRS IVP 11/05/20 17:30 11/06/20 05:15 ALLERGIES ALLERGIES: Coded Allergies: No Known Drug Allergies (Unverified , 11/04/20) ROS Review of System unreliable, he would not talk PHYSICAL EXAM General: Alert, No acute distress HEENT: Atraumatic, Mucous membr. moist/pink Lungs: Clear to auscultation Heart: Other (AFIB rate controlled) Abdomen: Soft, No tenderness Extremities: No cyanosis, No edema Skin: No breakdown, No significant lesion Neuro: Sensation intact Psych/Mental Status: Other (nonverbal) MUSCULOSKELETAL: Osteoarthritic changes both hands VITALS/I&O VITALS/I&O: Vital Signs Date Time Temp Pulse Resp B/P (MAP) Pulse Ox O2 Delivery O2 Flow Rate FiO2 11/06/20 06:16 113 105/78 (87) 11/06/20 02:47 99.1 16 95 Room Air 99.1 I & O 11/05/20 11/05/20 11/06/20 15:00 23:00 07:00 Intake Total 0 ml 125 ml Output Total 850 ml Balance -850 ml 125 ml LABS Lab: Laboratory Tests Test 11/06/20 04:00 White Blood Count 12.3 x10^3/uL (4.0-11.0) H Red Blood Count 3.31 x10^6/uL (4.30-5.70) L Hemoglobin 9.5 g/dL (13.0-17.5) L Hematocrit 28.9 % (39.0-53.0) L Mean Corpuscular Volume 87 fL (79-100) Mean Corpuscular Hemoglobin 29 pg (25-35) Mean Corpuscular Hemoglobin Concent 33 g/dL (31-37) Red Cell Distribution Width 16.9 % (11.5-14.5) H Platelet Count 226 x10^3/uL (140-400) Neutrophils (%) (Auto) 77 % (31-73) H Lymphocytes (%) (Auto) 15 % (24-48) L Monocytes (%) (Auto) 7 % (0-9) Eosinophils (%) (Auto) 0 % (0-3) Basophils (%) (Auto) 0 % (0-3) Neutrophils # (Auto) 9.5 x10^3/uL (1.8-7.7) H Lymphocytes # (Auto) 1.9 x10^3/uL (1.0-4.8) Monocytes # (Auto) 0.8 x10^3/uL (0.0-1.1) Eosinophils # (Auto) 0.1 x10^3/uL (0.0-0.7) Basophils # (Auto) 0.0 x10^3/uL (0.0-0.2) Sodium Level 142 mmol/L (136-145) Potassium Level 4.0 mmol/L (3.5-5.1) Chloride Level 109 mmol/L (98-107) H Carbon Dioxide Level 22 mmol/L (21-32) Anion Gap 11 (6-14) Blood Urea Nitrogen 14 mg/dL (8-26) Creatinine 1.0 mg/dL (0.7-1.3) Estimated GFR (Cockcroft-Gault) 73.0 BUN/Creatinine Ratio 14 (6-20) Glucose Level 83 mg/dL (70-99) Calcium Level 8.2 mg/dL (8.5-10.1) L Total Bilirubin 0.4 mg/dL (0.2-1.0) Aspartate Amino Transferase (AST) 26 U/L (15-37) Alanine Aminotransferase (ALT) 22 U/L (16-63) Alkaline Phosphatase 63 U/L (46-116) Total Protein 5.7 g/dL (6.4-8.2) L Albumin 2.3 g/dL (3.4-5.0) L Albumin/Globulin Ratio 0.7 (1.0-1.7) L Laboratory Tests 11/06/20 04:00 Laboratory Tests 11/06/20 04:00 ASSESSMENT/PLAN ASSESSMENT/PLAN 1. Sepsis with UTI/bacteremia: recently treated at [facility] in 07/2020 with noted pseudomonas at that time. ID following 2. AFIB RVR: refractory, appears to have been noted initially at [facility] in 07/2020. rate controlled 3. Dementia 4. Hematuria: lowest Hgb at 7.9. Baseline was 11-13 5. HTN: controlled Recommendations 1. He is from correctional facility and has known dementia and would not speak to me but does at times with staff. Continue antibiotics per ID 2. I would suspect given his mentation that he may not have been taking his cardiac medications accordingly hence conversion back to AFIB. At this time continue with cardizem drip and when he is able to cooperate and take PO then will resume Metoprolol/amiodarone. 3. No further hematuria, Hgb is stable. Resume eliquis when able to take PO. x1 Rectal ASA 4. Follow up with [facility] MELANIA ODELL APRN Nov 06, 2020 11:31
[2020-11-06] MEDS ORDERED: ASPIRIN RECTAL 300 MG SUPP. PR ONE (12:00)
[2020-11-06] MEDS: AMIODARONE HCL 200 MG TABLET. PO SCH (12:45)
[2020-11-06] MEDS: METOPROLOL TART IMMED RELEASE 25 MG TABLET. PO SCH ×2 (12:46→21:33)
[2020-11-06] MEDS: DAPTOmycin (GENERIC) IVPB 410 MG in IV NORMAL SALINE 50ML 50 ML IV SCH (14:37)
[2020-11-06] MEDS ORDERED: FUROSEMIDE 40 MG/4 ML VIAL. IVP ONE (17:30)
[2020-11-07 03:40] VITALS: BP 130/76
[2020-11-07] MEDS: CEFEPIME HCL IV Push 2 GM VIAL. IVP SCH ×3 (05:42→22:00)
[2020-11-07 07:00] VITALS: BP 117/69
--- NOTE | 2020-11-07 08:44 | PDOC ---
Infectious Disease Note Subjective: Subjective Pt remains nonverbal Appears comfortable crossing guard at bedside Remains afebrile Vital Signs: Vital Signs Vital Signs Date Time Temp Pulse Resp B/P (MAP) Pulse Ox O2 Delivery O2 Flow Rate FiO2 11/07/20 07:00 98.3 109 18 117/69 (85) 96 Room Air 98.3 Physical Exam: PHYSICAL EXAM GENERAL: Alert, awake. Does not answer any questions. appears comfortable HEENT: Normocephalic, atraumatic. Anicteric. Poor dentition. Oral mucosa dry. NECK: Supple. No JVD. Right IJ clean. LUNGS: Clear anteriorly. HEART: S1, S2. No murmurs. ABDOMEN: Soft, nontender, nondistended. GENITOURINARY: Ahrris in place. EXTREMITIES: No edema, no cyanosis. DERMATOLOGIC: Warm, dry. No generalized rash. NEUROLOGIC: Alert awake does not answer any questions PSYCHIATRIC: Calm Medications: Inpatient Meds: Medications reviewed. Objective: Assessment: 1. Sepsis, 2. Gram-negative and gram-positive bacteremia poa. E. coli bacteremia 3. Leukocytosis. 4. Anemia. 5. E. coli pyelonephritis 6. Lactic acidosis. Possible enteritis 7. Hematuria. 8. Dementia. 9. History of urinary retention with chronic indwelling Harris. History of recurrent UTI, 10. Atrial fibrillation. CT abdomen and pelvis November 05 Impression: 1. Perinephric and perivesicular fat stranding consistent with provided history of urinary tract infection. 2. Segmental wall thickening and adjacent fat stranding of a loop of small bowel in the midabdomen concerning for enteritis. 3. No intra-abdominal abscess identified. Plan: Plan of Care 1. DC cefepime, not ceftriaxone 2. Continue daptomycin pending GPC in blood cultures 3. Follow-up repeat blood cultures 11/06 negative so far 4. Follow up labs and cultures. 5. Maintain aspiration precaution. 6. Change Harris if not done already. 7. Continue supportive care Discussed with the nursing staff. LILIYA BARBER MD Nov 07, 2020 08:44
[2020-11-07] MEDS: AMIODARONE HCL 200 MG TABLET. PO SCH (09:49)
[2020-11-07] MEDS: LACTOBACILLUS RHAMNOSUS GG 1 CAPSULE. PO SCH ×2 (09:49→21:59)
[2020-11-07] MEDS: METOPROLOL TART IMMED RELEASE 25 MG TABLET. PO SCH ×2 (09:49→21:59)
--- NOTE | 2020-11-07 10:17 | PDOC ---
PROGRESS NOTES Date of Service: DATE: 11/07/20 TIME: 10:17 Chief Complaint Chief Complaint FINDINGS: The cardiomediastinal silhouette and pulmonary vessels are within normal limits. Strandy bibasilar airspace disease. No pleural effusion. IMPRESSION: Bibasilar atelectasis. VTE Prophylaxis Ordered VTE Prophylaxis Devices: Yes VTE Pharmacological Prophylaxi: No Assessment/Plan Assessment/Plan Urosepsis Acute cystitis Chronic indwelling Harris Hematuria secondary to chronic indwelling Harris Normocytic anemia Atrial fibrillation Dementia Severe malnutrition Segmental wall thickening and adjacent fat stranding of a loop of small bowel in the midabdomen concerning for enteritis. Plan: continuous IV fluids Harris catheter was changed in the ED Provide pain medications home medications we can once identified FEN - Cardiac diet PPX - SCDs FULL CODE Dispo - inpatient for above Discussed with patient but did not name surrogate decision-maker Continue cefepime. Discontinue Zyvox. CONTINUE IVdaptomycin. CT abdomen and pelvis. REPEAT BLOOD CULTURES CONSULT GI RE ABNORMAL CT Continue cefepim and daptomycin. d/w RN Justifications for Admission Justifications for Admission Other Justification History of Present Illness History of Present Illness Identification/Chief Complaint Chief Complaint Blood in urine Source Source: Chart review History of Present Illness History of Present Illness Patient 75-year-old male with past medical history dementia, chronic indwelling Harris catheter, who presents from [facility] due to blood found in his Harris catheter. His Harris was recently changed at his correctional facility, he was sent to the ED due to continued bleeding. He was supposed to follow-up at [facility] for urology, however they never returned to [facility] because his blood pressure was low, 84/40 mmHg. Upon arrival in the ED he was tachycardic, afebrile, we did require 2 L nasal cannula due to some hypoxia. Labs on admission showed WBC 13.8, hemoglobin 8.6, hematocrit 26.5, MCV 88, platelets 225, lactic acid 2.1, albumin 2.0. His rapid COVID-19 was negative. His urinalysis showed RBCs TNTC, WBC >40, urine bacteria moderate, further UA results were not performed likely due to gross hematuria. He has been vaccinated against COVID-19. He received Rocephin 1 g and IV fluids. Will admit patient for further medical management. Past Medical History Past Medical History Dementia, A. fib, CKD, frequent UTIs Past Surgical History Past Surgical History Reviewed with patient but unable to obtain due to clinical history of dementia Family History Family History Reviewed with patient but unable to obtain due to clinical history dementia Social History Smoke: No ALCOHOL: none Drugs: None Current Problem List Problem List Problems Medical Problems: (1) Person under investigation for COVID-19 Status: Acute (2) Sepsis Status: Acute (3) UTI (urinary tract infection) Status: Acute Current Medications Current Medications Current Medications Sodium Chloride 1,000 ml @ 1,000 mls/hr 1X ONCE IV Last administered on 11/04/20at 16:30; Start 11/04/20 at 16:30; Stop 11/04/20 at 17:29; Status DC Ceftriaxone Sodium (Rocephin) 1 gm 1X ONCE IVP Last administered on 11/04/20at 17:38; Start 11/04/20 at 17:00; Stop 11/04/20 at 17:01; Status DC Magnesium Sulfate 50 ml @ 25 mls/hr 1X ONCE IV Last administered on 11/04/20at 17:43; Start 11/04/20 at 17:30; Stop 11/04/20 at 19:29 Calcium Gluconate (Calcium Gluconate) 1,000 mg 1X ONCE IVP ; Start 11/04/20 at 17:30; Stop 11/04/20 at 17:31; Status UNV Calcium Gluconate 1000 mg/Sodium Chloride 110 ml @ 220 mls/hr 1X ONCE IV Last administered on 11/04/20at 18:11; Start 11/04/20 at 17:30; Stop 11/04/20 at 17:59; Status DC Ondansetron HCl (Zofran) 4 mg PRN Q8HRS PRN IVP NAUSEA/VOMITING; Start 11/04/20 at 18:30; Stop 11/05/20 at 18:29 Sodium Chloride 1,000 ml @ 125 mls/hr Q8H IV ; Start 11/04/20 at 18:30; Stop 11/05/20 at 18:29 Allergies Allergies: Coded Allergies: No Known Drug Allergies (Unverified , 11/04/20) 8- URINE CULTURE Preliminary Preliminary GREATER THAN 100,000 CFU/ML [ESCHERICHIA COLI] on 11/06/20 at 0909 GREATER THAN 100,000 CFU/ML [ENTEROCOCCUS FAECALIS] SEPSIS WITH BACTEREMIA Urosepsis Acute cystitis Chronic indwelling Harris Hematuria secondary to chronic indwelling Harris Normocytic anemia Atrial fibrillation Dementia Severe malnutrition Segmental wall thickening and adjacent fat stranding of a loop of small bowel in the midabdomen concerning for enteritis. continuous IV fluids Harris catheter was changed in the ED PRN pain medications home medications we can once identified FEN - Cardiac diet PPX - SCDs FULL CODE Dispo - inpatient for above Discussed with patient but did not name surrogate decision-maker CT abdomen and pelvis. REVIEWED REPEAT BLOOD CULTURES CONSULT GI RE ABNORMAL CT cefepimE CONT daptomycin. d/w RN Vitals Vitals Vital Signs Date Time Temp Pulse Resp B/P (MAP) Pulse Ox O2 Delivery O2 Flow Rate FiO2 11/07/20 09:49 109 117/69 11/07/20 07:00 98.3 18 96 Room Air 98.3 Physical Exam Physical Exam GENERAL: Alert, awake. Does not answer any questions. appears comfortable HEENT: Normocephalic, atraumatic. Anicteric. Poor dentition. Oral mucosa dry. NECK: Supple. No JVD. Right IJ clean. LUNGS: Clear anteriorly. HEART: S1, S2. No murmurs. ABDOMEN: Soft, nontender, nondistended. GENITOURINARY: Harris in place. EXTREMITIES: No edema, no cyanosis. DERMATOLOGIC: Warm, dry. No generalized rash. NEUROLOGIC: Alert awake does not answer any questions PSYCHIATRIC: Calm General: Alert, No acute distress Heart: Regular rate, Normal S1 Lungs: Clear Abdomen: Soft, No tenderness Extremities: No cyanosis, No edema Skin: No breakdown, No significant lesion Labs LABS PATIENT: XAVI LEWIS ACCOUNT: [id number] : 1945 LOCATION: [address] [place] [address] AGE: 75 SEX: M EXAM STATUS: ADM IN ORD. PHYSICIAN: LILIYA BARBER MD REASON: gram neg and gram pos bacteremia, uti PROCEDURE: CT ABDOMEN PELVIS WO CONTRAST CT ABDOMEN+PELVIS WO History: Gram-negative and gram-positive bacteremia, UTI. Comparison: None. Technique: CT abdomen pelvis without contrast. Findings: Small bilateral pleural effusions and adjacent dependent consolidations. The liver is unremarkable. The gallbladder is decompressed. The pancreas spleen and adrenal glands are unremarkable. Bilateral kidneys demonstrate perinephric fat stranding. Punctate nonobstructing bilateral nephrolithiasis. The bladder is decompressed by Harris catheter. There is mild wall thickening and perivesicular fat stranding. The stomach is decompressed. Lung segment wall thickening and mesenteric fat stranding of a loop of small bowel at the mid abdomen (axial image 59). No evidence of obstruction. Normal appendix. Mild sigmoid diverticulosis. No colonic wall thickening. Mild mesenteric/peritoneal fat stranding without significant fluid collection. Mild aortic atherosclerotic calcification without aneurysm. No abdominal pelvic adenopathy. Mild prostatic enlargement. Small fat-containing umbilical hernia and left inguinal canal. No acute osseous abnormalities. Impression: 1. Perinephric and perivesicular fat stranding consistent with provided history of urinary tract infection. 2. Segmental wall thickening and adjacent fat stranding of a loop of small bowel in the midabdomen concerning for enteritis. 3. No intra-abdominal abscess identified. ------ Exposure: One or more of the following individualized dose reduction techniques were utilized for this examination: 1. Automated exposure control 2. Adjustment of the mA and/or kV according to patient size 3. Use of iterative reconstruction technique. Electronically signed by: Magdaleno Overton MD (11/05/2020 4:27 PM) [id number] DICTATED and SIGNED BY: MAGDALENO OVERTON MD DATE: 11/05/20 [id number] SPEC #: [id number] MORALES: 11/04/20 STATUS: RES REQ #: [id number] RECD: 11/04/[address] [facility] [address]: SALLY BARRETT DO SOURCE: BLOOD ENTR: 11/05/[address] [facility] [address]: DICKSON WATT SPDESC: ORDERED: BLD CULT - LC Procedure Result BLOOD CULTURE LC Preliminary Preliminary GRAM NEGATIVE RODS FINAL ID= [ESCHERICHIA COLI] GRAM POSITIVE COCCI FINAL ID= [ENTEROCOCCUS FAECALIS] ESCHERICHIA COLI ENTEROCOCCUS FAECALIS ANTIMICROBIAL SUSCEPTIBILITY Preliminary Comment NEG SHELLI 56 ESCHERICHIA COLI ANTIBIOTIC RESULT INTERPRETATION AMPICILLIN/SULBACTAM >16/8 R AMIKACIN <=16 S AMPICILLIN >16 R AMOXICILLIN/K CLAVULANATE 16/8 I AZTREONAM <=4 S CEFTRIAXONE <=1 S CEFTAZIDIME <=1 S CEFOTAXIME <=2 S CEFOXITIN <=8 S CEFAZOLIN >16 R CIPROFLOXACIN <=0.25 S CEFEPIME <=2 S CEFUROXIME <=4 S CEFTAZIDIME/AVIBACTAM <=4 S ERTAPENEM <=0.5 S GENTAMICIN <=2 S LEVOFLOXACIN <=0.5 S MEROPENEM <=1 S PIPERACILLIN/TAZOBACTAM 32 I TRIMETHOPRIM/SULFAMETHOXAZOLE <=0.5/9.5 S TETRACYCLINE <=4 S TOBRAMYCIN <=2 S Unless otherwise specified, Testing Performed by: [place] [address] For Inquires, the Physician may contact the Microbiology RUN DATE: 11/07/20 [facility] LAB *LIVE* PAGE 1 RUN TIME: 1250 Specimen Inquiry PATIENT: XAVI LEWIS ACCT: [id number] LOC: [address] [place] [address] U: [id number] AGE/SX: 75/M ROOM: [facility] RE11/04/[address]: ROXANE RENTERIA MD : 1945 BED: 1 DIS: STATUS: ADM IN TLOC: SPEC #: [id number] MORALES: 11/04/20 STATUS: RES REQ #: [id number] RECD: 11/04/[address]: SALLY BARRETT DO SOURCE: VOID ENTR: 11/04/[address]: DICKSON WATT [facility]: ORDERED: URINE CULTURE Procedure Result -------- ---- URINE CULTURE Preliminary Preliminary GREATER THAN 100,000 CFU/ML [ESCHERICHIA COLI] on 11/06/20 at 0909 GREATER THAN 100,000 CFU/ML [ENTEROCOCCUS FAECALIS] on 11/07/20 at 0757 Testing Performed by: [address] [address] For Inquires, the Physician may contact the Microbiology department at [phone] ESCHERICHIA COLI ENTEROCOCCUS FAECALIS ANTIMICROBIAL SUSCEPTIBILITY Preliminary Comment NEG SHELLI 56 ESCHERICHIA COLI ANTIBIOTIC RESULT INTERPRETATION AMPICILLIN/SULBACTAM >16/8 R AMIKACIN <=16 S AMPICILLIN >16 R AMOXICILLIN/K CLAVULANATE 16/8 I AZTREONAM <=4 S CEFTRIAXONE <=1 S CEFTAZIDIME <=1 S CEFOTAXIME <=2 S CEFOXITIN <=8 S CEFAZOLIN 8 S CIPROFLOXACIN <=0.25 S CEFEPIME <=2 S CEFUROXIME <=4 S CEFTAZIDIME/AVIBACTAM <=4 S ERTAPENEM <=0.5 S NITROFURANTOIN <=32 S GENTAMICIN <=2 S LEVOFLOXACIN <=0.5 S MEROPENEM <=1 S PIPERACILLIN/TAZOBACTAM <=8 S TRIMETHOPRIM/SULFAMETHOXAZOLE <=0.5/9.5 S RUN DATE: 11/07/20 [facility] *LIVE* PAGE 2 RUN TIME: 1250 Specimen Inquiry SPEC: [id number] PATIENT: XAVI LEWIS [id number] (Continued) Signed PATIENT: XAVI LEWIS ACCOUNT: [id number] : 1945 LOCATION: [address] [place] [address] AGE: 75 SEX: M EXAM STATUS: ADM IN ORD. PHYSICIAN: LILIYA BARBER MD REASON: gram neg and gram pos bacteremia, uti PROCEDURE: CT ABDOMEN PELVIS WO CONTRAST CT ABDOMEN+PELVIS WO History: Gram-negative and gram-positive bacteremia, UTI. Comparison: None. Technique: CT abdomen pelvis without contrast. Findings: Small bilateral pleural effusions and adjacent dependent consolidations. The liver is unremarkable. The gallbladder is decompressed. The pancreas spleen and adrenal glands are unremarkable. Bilateral kidneys demonstrate perinephric fat stranding. Punctate nonobstructing bilateral nephrolithiasis. The bladder is decompressed by Harris catheter. There is mild wall thickening and perivesicular fat stranding. The stomach is decompressed. Lung segment wall thickening and mesenteric fat stranding of a loop of small bowel at the mid abdomen (axial image 59). No evidence of obstruction. Normal appendix. Mild sigmoid diverticulosis. No colonic wall thickening. Mild mesenteric/peritoneal fat stranding without significant fluid collection. Mild aortic atherosclerotic calcification without aneurysm. No abdominal pelvic adenopathy. Mild prostatic enlargement. Small fat-containing umbilical hernia and left inguinal canal. No acute osseous abnormalities. Impression: 1. Perinephric and perivesicular fat stranding consistent with provided history of urinary tract infection. 2. Segmental wall thickening and adjacent fat stranding of a loop of small bowel in the midabdomen concerning for enteritis. 3. No intra-abdominal abscess identified. ------ Exposure: One or more of the following individualized dose reduction techniques were utilized for this examination: 1. Automated exposure control 2. Adjustment of the mA and/or kV according to patient size 3. Use of iterative reconstruction technique. Electronically signed by: Magdaleno Overton MD (11/05/2020 4:27 PM) [id number] DICTATED and SIGNED BY: MAGDALENO OVERTON MD DATE: 11/05/20 [id number] Assessment and Plan Assessmemt and Plan Problems Medical Problems: (1) Person under investigation for COVID-19 Status: Acute (2) Sepsis Status: Acute (3) UTI (urinary tract infection) Status: Acute Comment Review of Relevant I have reviewed the following items jose cruz (where applicable) has been applied. Labs Laboratory Tests Test 11/06/20 04:00 White Blood Count 12.3 x10^3/uL (4.0-11.0) Red Blood Count 3.31 x10^6/uL (4.30-5.70) Hemoglobin 9.5 g/dL (13.0-17.5) Hematocrit 28.9 % (39.0-53.0) Mean Corpuscular Volume 87 fL (79-100) Mean Corpuscular Hemoglobin 29 pg (25-35) Mean Corpuscular Hemoglobin Concent 33 g/dL (31-37) Red Cell Distribution Width 16.9 % (11.5-14.5) Platelet Count 226 x10^3/uL (140-400) Neutrophils (%) (Auto) 77 % (31-73) Lymphocytes (%) (Auto) 15 % (24-48) Monocytes (%) (Auto) 7 % (0-9) Eosinophils (%) (Auto) 0 % (0-3) Basophils (%) (Auto) 0 % (0-3) Neutrophils # (Auto) 9.5 x10^3/uL (1.8-7.7) Lymphocytes # (Auto) 1.9 x10^3/uL (1.0-4.8) Monocytes # (Auto) 0.8 x10^3/uL (0.0-1.1) Eosinophils # (Auto) 0.1 x10^3/uL (0.0-0.7) Basophils # (Auto) 0.0 x10^3/uL (0.0-0.2) Sodium Level 142 mmol/L (136-145) Potassium Level 4.0 mmol/L (3.5-5.1) Chloride Level 109 mmol/L (98-107) Carbon Dioxide Level 22 mmol/L (21-32) Anion Gap 11 (6-14) Blood Urea Nitrogen 14 mg/dL (8-26) Creatinine 1.0 mg/dL (0.7-1.3) Estimated GFR (Cockcroft-Gault) 73.0 BUN/Creatinine Ratio 14 (6-20) Glucose Level 83 mg/dL (70-99) Calcium Level 8.2 mg/dL (8.5-10.1) Iron Level 14 ug/dL (65-175) Total Iron Binding Capacity 215 ug/dL (250-450) Iron Saturation 7 % (15-34) Total Bilirubin 0.4 mg/dL (0.2-1.0) Aspartate Amino Transf (AST/SGOT) 26 U/L (15-37) Alanine Aminotransferase (ALT/SGPT) 22 U/L (16-63) Alkaline Phosphatase 63 U/L (46-116) Total Protein 5.7 g/dL (6.4-8.2) Albumin 2.3 g/dL (3.4-5.0) Albumin/Globulin Ratio 0.7 (1.0-1.7) Vitamin B12 Level 465 pg/mL (247-911) Microbiology 11/06/20 Blood Culture - Preliminary, Resulted NO GROWTH AFTER 1 DAY 11/04/20 Urine Culture - Preliminary, Resulted 11/04/20 Antimicrobic Susceptibility - Preliminary, Resulted Medications Current Medications Sodium Chloride 1,000 ml @ 1,000 mls/hr 1X ONCE IV Last administered on 11/04/20at 16:30; Start 11/04/20 at 16:30; Stop 11/04/20 at 17:29; Status DC Ceftriaxone Sodium (Rocephin) 1 gm 1X ONCE IVP Last administered on 11/04/20at 17:38; Start 11/04/20 at 17:00; Stop 11/04/20 at 17:01; Status DC Magnesium Sulfate 50 ml @ 25 mls/hr 1X ONCE IV Last administered on 11/04/20at 17:43; Start 11/04/20 at 17:30; Stop 11/04/20 at 19:29; Status DC Calcium Gluconate (Calcium Gluconate) 1,000 mg 1X ONCE IVP ; Start 11/04/20 at 17:30; Stop 11/04/20 at 17:31; Status UNV Calcium Gluconate 1000 mg/Sodium Chloride 110 ml @ 220 mls/hr 1X ONCE IV Last administered on 11/04/20at 18:11; Start 11/04/20 at 17:30; Stop 11/04/20 at 17:59; Status DC Ondansetron HCl (Zofran) 4 mg PRN Q8HRS PRN IVP NAUSEA/VOMITING; Start 11/04/20 at 18:30; Stop 11/05/20 at 07:38; Status DC Sodium Chloride 1,000 ml @ 125 mls/hr Q8H IV Last administered on 11/05/20at 10:30; Start 11/04/20 at 18:30; Stop 11/05/20 at 18:29; Status DC Ceftriaxone Sodium (Rocephin) 1 gm Q24H IVP ; Start 11/05/20 at 17:00; Stop 11/05/20 at 09:31; Status DC Morphine Sulfate (Morphine Sulfate) 4 mg PRN Q3HRS PRN IVP PAIN; Start 11/04/20 at 19:00 Ondansetron HCl (Zofran) 4 mg PRN Q6HRS PRN IVP NAUSEA/VOMITING; Start 11/04/20 at 19:15 Al Hydroxide/Mg Hydroxide (Mylanta Plus Xs) 30 ml PRN Q3HRS PRN PO HEARTBURN / GAS; Start 11/04/20 at 19:15 Calcium Carbonate/ Glycine (Tums) 500 mg PRN Q3HRS PRN PO UPSET STOMACH; Start 11/04/20 at 19:15 Zolpidem Tartrate (Ambien) 5 mg PRN QHS PRN PO INSOMNIA, MAY REPEAT IN 1HR; Start 11/04/20 at 19:15 Acetaminophen/ Hydrocodone Bitart (Lortab 5/325) 1 tab PRN Q4HRS PRN PO MODERATE-SEVERE PAIN; Start 11/04/20 at 19:15 Acetaminophen (Tylenol) 650 mg PRN Q6HRS PRN PO Headaches, Temp > 101.5F; Start 11/04/20 at 19:15 Magnesium Hydroxide (Milk Of Magnesia) 2,400 mg PRN Q12HR PRN PO CONSTIPATION; Start 11/04/20 at 19:15 Haloperidol Lactate (Haldol Inj) 5 mg PRN Q6HRS PRN IVP AGITATION; Start 11/04/20 at 19:15 Lorazepam (Ativan Inj) 2 mg PRN Q6HRS PRN IVP ANXIETY / AGITATION-1ST CHOICE Last administered on 11/04/20at 20:41; Start 11/04/20 at 19:15 Sodium Chloride 1,000 ml @ 100 mls/hr 1X ONCE IV ; Start 11/04/20 at 19:30; Stop 11/05/20 at 05:29; Status DC Lactobacillus Rhamnosus (Culturelle) 1 cap BID PO Last administered on 11/07/20at 09:49; Start 11/05/20 at 09:00 Cefepime HCl (Maxipime) 1 gm Q12HR IVP Last administered on 11/05/20at 09:41; Start 11/05/20 at 09:30; Stop 11/05/20 at 17:27; Status DC Linezolid/Dextrose 300 ml @ 300 mls/hr Q12HR IV ; Start 11/05/20 at 21:00; Stop 11/05/20 at 13:04; Status DC Linezolid/Dextrose 300 ml @ 300 mls/hr 1X ONCE IV Last administered on 11/05/20at 13:25; Start 11/05/20 at 09:45; Stop 11/05/20 at 10:44; Status DC Daptomycin 410 mg/ Sodium Chloride 50 ml @ 100 mls/hr Q24H IV Last administered on 11/06/20at 14:37; Start 11/05/20 at 14:00 Diltiazem HCl 125 mg/Sodium Chloride 125 ml @ 5 mls/hr CONT PRN IV SEE I/O RECORD Last administered on 11/06/20at 04:02; Start 11/05/20 at 16:30 Cefepime HCl (Maxipime) 2 gm Q8HRS IVP Last administered on 11/07/20at 05:42; Start 11/05/20 at 17:30 Aspirin (Aspirin Rectal Supp) 300 mg 1X ONCE [place] Last administered on 11/06/20at 12:46; Start 11/06/20 at 12:00; Stop 11/06/20 at 12:01; Status DC Amiodarone HCl (Cordarone) 200 mg DAILY PO Last administered on 11/07/20at 09:49; Start 11/06/20 at 12:00 Metoprolol Tartrate (Lopressor) 25 mg BID PO Last administered on 11/07/20at 09:49; Start 11/06/20 at 12:00 Furosemide (Lasix) 40 mg 1X ONCE IVP Last administered on 11/06/20at 18:35; Start 11/06/20 at 17:30; Stop 11/06/20 at 17:31; Status DC Active Scripts Active Reported Vitamin B-1 (Thiamine Hcl) 100 Mg Tablet 100 Mg PO DAILY Thera-Gel (Amite Tar) 251 Ml Shampoo 251 Ml TP 3X/WEEK Flomax (Tamsulosin Hcl) 0.4 Mg Cap.er.24h 0.8 Mg PO HS Miralax (Polyethylene Glycol 3350) 17 Gm Powd.pack 1 Pkt PO DAILY Metoprolol Tartrate 25 Mg Tablet 25 Mg PO BID Haloperidol 2 Mg Tablet 1 Tab PO BID Finasteride 5 Mg Tablet 5 Mg PO DAILY Eliquis (Apixaban) 5 Mg Tablet 5 Mg PO BID Docusate Sodium 100 Mg Capsule 1 Cap PO BID 15 Days B-12 (Cyanocobalamin (Vitamin B-12)) 1,000 Mcg Tablet.er 1,000 Mcg PO DAILY Amiodarone Hcl 200 Mg Tablet 200 Mg PO DAILY Acetaminophen 325 Mg Tablet 650 Mg PO QID Abilify (Aripiprazole) 2 Mg Tablet 2 Mg PO HS Vitals/I & O Vital Sign - Last 24 Hours 11/06/20 11/06/20 11/06/20 11/06/20 11:00 12:45 12:46 15:00 Temp 99.5 99.4 99.5 99.4 Pulse 76 113 113 87 Resp 16 16 B/P (MAP) 119/65 (83) 105/78 105/78 122/63 (82) Pulse Ox 96 96 O2 Delivery Room Air Room Air 11/06/20 11/06/20 11/06/20 11/06/20 19:45 19:49 21:33 23:35 Temp 98.4 98.1 98.4 98.1 Pulse 104 104 95 Resp 24 22 B/P (MAP) 139/85 (103) 139/85 120/71 (87) Pulse Ox 91 95 O2 Delivery Room Air Room Air Room Air 11/07/20 11/07/20 11/07/20 11/07/20 03:40 07:00 09:49 09:49 Temp 98.1 98.3 98.1 98.3 Pulse 112 109 109 109 Resp 18 B/P (MAP) 130/76 (94) 117/69 (85) 117/69 117/69 Pulse Ox 96 96 O2 Delivery Room Air Room Air Intake and Output 11/06/20 11/06/20 11/07/20 15:00 23:00 07:00 Intake Total 180 ml Output Total 2850 ml Balance 180 ml -2850 ml Justicifation of Admission Dx: Justifications for Admission: Justification of Admission Dx: Yes Sepsis: Bacteremia CHRISTOPHER HERNANDEZ MD Nov 07, 2020 10:17
[2020-11-07 11:00] VITALS: BP 127/72
--- NOTE | 2020-11-07 11:13 | PDOC ---
CARDIOLOGY PROGRESS NOTE SUBJECTIVE: No new events. OBJECTIVE: Vital Signs/I&O: Vital Signs Date Time Temp Pulse Resp B/P (MAP) Pulse Ox O2 Delivery O2 Flow Rate FiO2 11/07/20 09:49 109 117/69 11/07/20 08:00 Room Air 11/07/20 07:00 98.3 18 96 98.3 I & O 11/06/20 11/06/20 11/07/20 15:00 23:00 07:00 Intake Total 180 ml Output Total 2850 ml Balance 180 ml -2850 ml Objective: He is sleeping, limited response No edema Irregular heart tones. Soft abdomen. CURRENT MEDICATIONS: Current Medications Medications (Trade) Dose Ordered Sig/Betsy Route PRN Reason Start Time Stop Time Status Last Admin Dose Admin Aspirin (Aspirin Rectal Supp) 300 mg 1X ONCE MS 11/06/20 12:00 11/06/20 12:01 DC 11/06/20 12:46 Amiodarone HCl (Cordarone) 200 mg DAILY PO 11/06/20 12:00 11/07/20 09:49 Metoprolol Tartrate (Lopressor) 25 mg BID PO 11/06/20 12:00 11/07/20 09:49 Furosemide (Lasix) 40 mg 1X ONCE IVP 11/06/20 17:30 11/06/20 17:31 DC 11/06/20 18:35 DIAGNOSTIC TESTING: Labs reviewed ASSESSMENT: 1. Sepsis with UTI/bacteremia: recently treated at [facility] in 07/2020 with noted pseudomonas at that time. ID following 2. AFIB RVR: refractory, appears to have been noted initially at [facility] in 07/2020. rate controlled 3. Dementia 4. Hematuria: lowest Hgb at 7.9. Baseline was 11-13 5. HTN: controlled PLAN: 1. Continue current medical therapy. Supportive care. 2. Restart eliquis when close to discharge and hgb stable. Justicifation of Admission Dx: Justifications for Admission: Justification of Admission Dx: Yes Sepsis: Bacteremia JAXON WALTON MD Nov 07, 2020 11:13
[2020-11-07] MEDS ORDERED: FUROSEMIDE 40 MG/4 ML VIAL. IVP ONE (14:00)
[2020-11-07 15:00] VITALS: BP 133/85
[2020-11-07] MEDS: DAPTOmycin (GENERIC) IVPB 410 MG in IV NORMAL SALINE 50ML 50 ML IV SCH (16:07)
[2020-11-07 19:25] VITALS: BP 137/80
[2020-11-07 22:31] VITALS: BP 132/74
[2020-11-08 02:44] VITALS: BP 131/78
[2020-11-08 04:30] LABS: BASO % 1 % (0-3); EOS # 0.1 x10^3/uL (0.0-0.7); EOS % 2 % (0-3); HEMOGLOBIN 11.8 g/dL (13.0-17.5); LYMPH # 2.1 x10^3/uL (1.0-4.8); LYMPH % 23 % (24-48); MEAN CORPUSCULAR HEMOGLOBIN 28 pg (25-35); MEAN CORPUSCULAR HGB CONC 33 g/dL (31-37); MEAN CORPUSCULAR VOLUME 86 fL (79-100); MONO # 0.7 x10^3/uL (0.0-1.1); MONO % 8 % (0-9); NEUT # 5.9 x10^3/uL (1.8-7.7); NEUT % 67 % (31-73); PLATELET COUNT 252 x10^3/uL (140-400); RED BLOOD COUNT 4.17 x10^6/uL (4.30-5.70); RED CELL DISTRIBUTION WIDTH 16.4 % (11.5-14.5); WHITE BLOOD COUNT 8.8 x10^3/uL (4.0-11.0)
[2020-11-08 04:59] LABS: CALCIUM 8.8 mg/dL (8.5-10.1); POTASSIUM 3.9 mmol/L (3.5-5.1)
[2020-11-08] MEDS: CEFEPIME HCL IV Push 2 GM VIAL. IVP SCH (06:23)
[2020-11-08 06:29] VITALS: BP 118/79
--- NOTE | 2020-11-08 08:01 | PDOC ---
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 Does not answer any questions. appears comfortable HEENT: Normocephalic, atraumatic. Anicteric. Poor dentition. Oral mucosa dry. NECK: Supple. No JVD. Right IJ clean. LUNGS: Decreased breath sounds at the base no accessory muscle use HEART: S1, S2. No murmurs. ABDOMEN: Soft, nontender, nondistended. GENITOURINARY: Harris in place. EXTREMITIES: No edema, no cyanosis. DERMATOLOGIC: Warm, dry. No generalized rash. NEUROLOGIC: Alert awake does not answer any questions PSYCHIATRIC: Calm Medications: Inpatient Meds: Medications reviewed. Labs: Lab Laboratory Tests Test 11/08/20 04:00 White Blood Count 8.8 x10^3/uL (4.0-11.0) Red Blood Count 4.17 x10^6/uL (4.30-5.70) Hemoglobin 11.8 g/dL (13.0-17.5) Hematocrit 36.0 % (39.0-53.0) Mean Corpuscular Volume 86 fL (79-100) Mean Corpuscular Hemoglobin 28 pg (25-35) Mean Corpuscular Hemoglobin Concent 33 g/dL (31-37) Red Cell Distribution Width 16.4 % (11.5-14.5) Platelet Count 252 x10^3/uL (140-400) Neutrophils (%) (Auto) 67 % (31-73) Lymphocytes (%) (Auto) 23 % (24-48) Monocytes (%) (Auto) 8 % (0-9) Eosinophils (%) (Auto) 2 % (0-3) Basophils (%) (Auto) 1 % (0-3) Neutrophils # (Auto) 5.9 x10^3/uL (1.8-7.7) Lymphocytes # (Auto) 2.1 x10^3/uL (1.0-4.8) Monocytes # (Auto) 0.7 x10^3/uL (0.0-1.1) Eosinophils # (Auto) 0.1 x10^3/uL (0.0-0.7) Basophils # (Auto) 0.0 x10^3/uL (0.0-0.2) Sodium Level 140 mmol/L (136-145) Potassium Level 3.9 mmol/L (3.5-5.1) Chloride Level 105 mmol/L (98-107) Carbon Dioxide Level 30 mmol/L (21-32) Anion Gap 5 (6-14) Blood Urea Nitrogen 13 mg/dL (8-26) Creatinine 1.0 mg/dL (0.7-1.3) Estimated GFR (Cockcroft-Gault) 73.0 Glucose Level 93 mg/dL (70-99) Calcium Level 8.8 mg/dL (8.5-10.1) Objective: Assessment: 1. Sepsis, 2. Gram-negative and gram-positive bacteremia poa.source E. coli bacteremia and enterococcus 3. E. coli and enterococcus fecalis pyelonephritis 4. Leukocytosis. 5. Lactic acidosis. 6. Anemia. 7. Hematuria. 8. Dementia. 9. History of urinary retention with chronic indwelling Harris. History of recurrent UTI, 10. Atrial fibrillation. CT abdomen and pelvis November 05 Impression: 1. Perinephric and perivesicular fat stranding consistent with provided history of urinary tract infection. 2. Segmental wall thickening and adjacent fat stranding of a loop of small bowel in the midabdomen concerning for enteritis. 3. No intra-abdominal abscess identified. Plan: Plan of Care 1. DC cefepime, start ceftriaxone 2. Continue daptomycin for pending enterococcus suscep ,will need modification of tx 3. Follow-up repeat blood cultures 11/06 negative so far 4. Follow up labs and cultures. 5. Maintain aspiration precaution. 6. Change Harris if not done already. 7. Continue supportive care Discussed with the nursing staff. LILIYA BARBER MD Nov 08, 2020 08:01
[2020-11-08] MEDS: cefTRIAXone IV Push 2 GM VIAL. IVP SCH (09:29)
[2020-11-08] MEDS: LACTOBACILLUS RHAMNOSUS GG 1 CAPSULE. PO SCH ×2 (09:29→21:00)
[2020-11-08] MEDS: AMIODARONE HCL 200 MG TABLET. PO SCH (09:30)
[2020-11-08] MEDS: METOPROLOL TART IMMED RELEASE 25 MG TABLET. PO SCH ×2 (09:30→21:00)
--- NOTE | 2020-11-08 10:33 | PDOC ---
PROGRESS NOTES Date of Service: DATE: 11/08/20 TIME: 10:33 Chief Complaint Chief Complaint FINDINGS: The cardiomediastinal silhouette and pulmonary vessels are within normal limits. Strandy bibasilar airspace disease. No pleural effusion. IMPRESSION: Bibasilar atelectasis. VTE Prophylaxis Ordered VTE Prophylaxis Devices: Yes VTE Pharmacological Prophylaxi: No Assessment/Plan Assessment/Plan Urosepsis Acute cystitis Chronic indwelling Harris Hematuria secondary to chronic indwelling Harris Normocytic anemia Atrial fibrillation Dementia Severe malnutrition Segmental wall thickening and adjacent fat stranding of a loop of small bowel in the midabdomen concerning for enteritis. Plan: continuous IV fluids Harris catheter was changed in the ED Provide pain medications home medications we can once identified FEN - Cardiac diet PPX - SCDs FULL CODE Dispo - inpatient for above Discussed with patient but did not name surrogate decision-maker Continue cefepime. Discontinue Zyvox. CONTINUE IVdaptomycin. CT abdomen and pelvis. REPEAT BLOOD CULTURES CONSULT GI RE ABNORMAL CT Continue cefepim and daptomycin. d/w RN Justifications for Admission Justifications for Admission Other Justification History of Present Illness History of Present Illness Identification/Chief Complaint Chief Complaint Blood in urine Source Source: Chart review History of Present Illness History of Present Illness Patient 75-year-old male with past medical history dementia, chronic indwelling Harris catheter, who [facility] due to blood found in his Harris catheter. His Harris was recently changed at his correctional facility, he was sent to the ED due to continued bleeding. He was supposed to follow-up at [facility] for urology, however they never returned to [facility] because his blood pressure was low, 84/40 mmHg. Upon arrival in the ED he was tachycardic, afebrile, we did require 2 L nasal cannula due to some hypoxia. Labs on admission showed WBC 13.8, hemoglobin 8.6, hematocrit 26.5, MCV 88, platelets 225, lactic acid 2.1, albumin 2.0. His rapid COVID-19 was negative. His urinalysis showed RBCs TNTC, WBC >40, urine bacteria moderate, further UA results were not performed likely due to gross hematuria. He has been vaccinated against COVID-19. He received Rocephin 1 g and IV fluids. Will admit patient for further medical management. Past Medical History Past Medical History Dementia, A. fib, CKD, frequent UTIs Past Surgical History Past Surgical History Reviewed with patient but unable to obtain due to clinical history of dementia Family History Family History Reviewed with patient but unable to obtain due to clinical history dementia Social History Smoke: No ALCOHOL: none Drugs: None Current Problem List Problem List Problems Medical Problems: (1) Person under investigation for COVID-19 Status: Acute (2) Sepsis Status: Acute (3) UTI (urinary tract infection) Status: Acute Current Medications Current Medications Current Medications Sodium Chloride 1,000 ml @ 1,000 mls/hr 1X ONCE IV Last administered on 11/04/20at 16:30; Start 11/04/20 at 16:30; Stop 11/04/20 at 17:29; Status DC Ceftriaxone Sodium (Rocephin) 1 gm 1X ONCE IVP Last administered on 11/04/20at 17:38; Start 11/04/20 at 17:00; Stop 11/04/20 at 17:01; Status DC Magnesium Sulfate 50 ml @ 25 mls/hr 1X ONCE IV Last administered on 11/04/20at 17:43; Start 11/04/20 at 17:30; Stop 11/04/20 at 19:29 Calcium Gluconate (Calcium Gluconate) 1,000 mg 1X ONCE IVP ; Start 11/04/20 at 17:30; Stop 11/04/20 at 17:31; Status UNV Calcium Gluconate 1000 mg/Sodium Chloride 110 ml @ 220 mls/hr 1X ONCE IV Last administered on 11/04/20at 18:11; Start 11/04/20 at 17:30; Stop 11/04/20 at 17:59; Status DC Ondansetron HCl (Zofran) 4 mg PRN Q8HRS PRN IVP NAUSEA/VOMITING; Start 11/04/20 at 18:30; Stop 11/05/20 at 18:29 Sodium Chloride 1,000 ml @ 125 mls/hr Q8H IV ; Start 11/04/20 at 18:30; Stop 11/05/20 at 18:29 Allergies Allergies: Coded Allergies: No Known Drug Allergies (Unverified , 11/04/20) 8- URINE CULTURE Preliminary Preliminary GREATER THAN 100,000 CFU/ML [ESCHERICHIA COLI] on 11/06/20 at 0909 GREATER THAN 100,000 CFU/ML [ENTEROCOCCUS FAECALIS] SEPSIS WITH BACTEREMIA Urosepsis Acute cystitis Chronic indwelling Harris Hematuria secondary to chronic indwelling Harris Normocytic anemia Atrial fibrillation Dementia Severe malnutrition Segmental wall thickening and adjacent fat stranding of a loop of small bowel in the midabdomen concerning for enteritis. continuous IV fluids Harris catheter was changed in the ED PRN pain medications home medications we can once identified FEN - Cardiac diet PPX - SCDs FULL CODE Dispo - inpatient for above Discussed with patient but did not name surrogate decision-maker CT abdomen and pelvis. REVIEWED REPEAT BLOOD CULTURES CONSULT GI RE ABNORMAL CT cefepimE CONT daptomycin. d/w RN 11-08 URINE CULTURE Preliminary Preliminary GREATER THAN 100,000 CFU/ML [ESCHERICHIA COLI] on 11/06/20 at 0909 GREATER THAN 100,000 CFU/ML [ENTEROCOCCUS FAECALIS] SEPSIS WITH BACTEREMIA Urosepsis Acute cystitis Chronic indwelling Harris Hematuria secondary to chronic indwelling Harris Normocytic anemia Atrial fibrillation Dementia Severe malnutrition Segmental wall thickening and adjacent fat stranding of a loop of small bowel in the midabdomen concerning for enteritis. continuous IV fluids Harris catheter was changed in the ED PRN pain medications home medications we can once identified FEN - Cardiac diet PPX - SCDs FULL CODE Dispo - inpatient for above Discussed with patient but did not name surrogate decision-maker CT abdomen and pelvis. REVIEWED REPEAT BLOOD CULTURES CONSULT GI RE ABNORMAL CT d/c cefepimE CONT daptomycin. , restart rocephin 2 gm iv q 24 hrs d/w RN Vitals Vitals Vital Signs Date Time Temp Pulse Resp B/P (MAP) Pulse Ox O2 Delivery O2 Flow Rate FiO2 11/08/20 09:30 104 118/79 11/08/20 08:00 Room Air 2.0 11/08/20 06:29 98.5 16 94 98.5 Physical Exam Physical Exam GENERAL: dosing Does not answer any questions. appears comfortable HEENT: Normocephalic, atraumatic. Anicteric. Poor dentition. Oral mucosa dry. NECK: Supple. No JVD. Right IJ clean. LUNGS: Decreased breath sounds at the base no accessory muscle use HEART: S1, S2. No murmurs. ABDOMEN: Soft, nontender, nondistended. GENITOURINARY: Harris in place. EXTREMITIES: No edema, no cyanosis. DERMATOLOGIC: Warm, dry. No generalized rash. NEUROLOGIC: Alert awake does not answer any questions PSYCHIATRIC: Calm General: Cooperative, No acute distress Heart: Regular rate, Normal S1 Lungs: Clear Abdomen: Soft, No tenderness Extremities: No cyanosis, No edema Skin: No breakdown, No significant lesion Labs LABS Laboratory Tests Test 11/08/20 04:00 White Blood Count 8.8 x10^3/uL (4.0-11.0) Red Blood Count 4.17 x10^6/uL (4.30-5.70) Hemoglobin 11.8 g/dL (13.0-17.5) Hematocrit 36.0 % (39.0-53.0) Mean Corpuscular Volume 86 fL (79-100) Mean Corpuscular Hemoglobin 28 pg (25-35) Mean Corpuscular Hemoglobin Concent 33 g/dL (31-37) Red Cell Distribution Width 16.4 % (11.5-14.5) Platelet Count 252 x10^3/uL (140-400) Neutrophils (%) (Auto) 67 % (31-73) Lymphocytes (%) (Auto) 23 % (24-48) Monocytes (%) (Auto) 8 % (0-9) Eosinophils (%) (Auto) 2 % (0-3) Basophils (%) (Auto) 1 % (0-3) Neutrophils # (Auto) 5.9 x10^3/uL (1.8-7.7) Lymphocytes # (Auto) 2.1 x10^3/uL (1.0-4.8) Monocytes # (Auto) 0.7 x10^3/uL (0.0-1.1) Eosinophils # (Auto) 0.1 x10^3/uL (0.0-0.7) Basophils # (Auto) 0.0 x10^3/uL (0.0-0.2) Sodium Level 140 mmol/L (136-145) Potassium Level 3.9 mmol/L (3.5-5.1) Chloride Level 105 mmol/L (98-107) Carbon Dioxide Level 30 mmol/L (21-32) Anion Gap 5 (6-14) Blood Urea Nitrogen 13 mg/dL (8-26) Creatinine 1.0 mg/dL (0.7-1.3) Estimated GFR (Cockcroft-Gault) 73.0 Glucose Level 93 mg/dL (70-99) Calcium Level 8.8 mg/dL (8.5-10.1) Assessment and Plan Assessmemt and Plan Problems Medical Problems: (1) Person under investigation for COVID-19 Status: Acute (2) Sepsis Status: Acute (3) UTI (urinary tract infection) Status: Acute Comment Review of Relevant I have reviewed the following items jose cruz (where applicable) has been applied. Labs Laboratory Tests Test 11/08/20 04:00 White Blood Count 8.8 x10^3/uL (4.0-11.0) Red Blood Count 4.17 x10^6/uL (4.30-5.70) Hemoglobin 11.8 g/dL (13.0-17.5) Hematocrit 36.0 % (39.0-53.0) Mean Corpuscular Volume 86 fL (79-100) Mean Corpuscular Hemoglobin 28 pg (25-35) Mean Corpuscular Hemoglobin Concent 33 g/dL (31-37) Red Cell Distribution Width 16.4 % (11.5-14.5) Platelet Count 252 x10^3/uL (140-400) Neutrophils (%) (Auto) 67 % (31-73) Lymphocytes (%) (Auto) 23 % (24-48) Monocytes (%) (Auto) 8 % (0-9) Eosinophils (%) (Auto) 2 % (0-3) Basophils (%) (Auto) 1 % (0-3) Neutrophils # (Auto) 5.9 x10^3/uL (1.8-7.7) Lymphocytes # (Auto) 2.1 x10^3/uL (1.0-4.8) Monocytes # (Auto) 0.7 x10^3/uL (0.0-1.1) Eosinophils # (Auto) 0.1 x10^3/uL (0.0-0.7) Basophils # (Auto) 0.0 x10^3/uL (0.0-0.2) Sodium Level 140 mmol/L (136-145) Potassium Level 3.9 mmol/L (3.5-5.1) Chloride Level 105 mmol/L (98-107) Carbon Dioxide Level 30 mmol/L (21-32) Anion Gap 5 (6-14) Blood Urea Nitrogen 13 mg/dL (8-26) Creatinine 1.0 mg/dL (0.7-1.3) Estimated GFR (Cockcroft-Gault) 73.0 Glucose Level 93 mg/dL (70-99) Calcium Level 8.8 mg/dL (8.5-10.1) Laboratory Tests Test 11/08/20 04:00 White Blood Count 8.8 x10^3/uL (4.0-11.0) Red Blood Count 4.17 x10^6/uL (4.30-5.70) Hemoglobin 11.8 g/dL (13.0-17.5) Hematocrit 36.0 % (39.0-53.0) Mean Corpuscular Volume 86 fL (79-100) Mean Corpuscular Hemoglobin 28 pg (25-35) Mean Corpuscular Hemoglobin Concent 33 g/dL (31-37) Red Cell Distribution Width 16.4 % (11.5-14.5) Platelet Count 252 x10^3/uL (140-400) Neutrophils (%) (Auto) 67 % (31-73) Lymphocytes (%) (Auto) 23 % (24-48) Monocytes (%) (Auto) 8 % (0-9) Eosinophils (%) (Auto) 2 % (0-3) Basophils (%) (Auto) 1 % (0-3) Neutrophils # (Auto) 5.9 x10^3/uL (1.8-7.7) Lymphocytes # (Auto) 2.1 x10^3/uL (1.0-4.8) Monocytes # (Auto) 0.7 x10^3/uL (0.0-1.1) Eosinophils # (Auto) 0.1 x10^3/uL (0.0-0.7) Basophils # (Auto) 0.0 x10^3/uL (0.0-0.2) Sodium Level 140 mmol/L (136-145) Potassium Level 3.9 mmol/L (3.5-5.1) Chloride Level 105 mmol/L (98-107) Carbon Dioxide Level 30 mmol/L (21-32) Anion Gap 5 (6-14) Blood Urea Nitrogen 13 mg/dL (8-26) Creatinine 1.0 mg/dL (0.7-1.3) Estimated GFR (Cockcroft-Gault) 73.0 Glucose Level 93 mg/dL (70-99) Calcium Level 8.8 mg/dL (8.5-10.1) Microbiology 11/06/20 Blood Culture - Preliminary, Resulted NO GROWTH AFTER 2 DAYS 11/04/20 Urine Culture - Preliminary, Resulted 11/04/20 Antimicrobic Susceptibility - Preliminary, Resulted Medications Current Medications Sodium Chloride 1,000 ml @ 1,000 mls/hr 1X ONCE IV Last administered on 11/04/20at 16:30; Start 11/04/20 at 16:30; Stop 11/04/20 at 17:29; Status DC Ceftriaxone Sodium (Rocephin) 1 gm 1X ONCE IVP Last administered on 11/04/20at 17:38; Start 11/04/20 at 17:00; Stop 11/04/20 at 17:01; Status DC Magnesium Sulfate 50 ml @ 25 mls/hr 1X ONCE IV Last administered on 11/04/20at 17:43; Start 11/04/20 at 17:30; Stop 11/04/20 at 19:29; Status DC Calcium Gluconate (Calcium Gluconate) 1,000 mg 1X ONCE IVP ; Start 11/04/20 at 17:30; Stop 11/04/20 at 17:31; Status UNV Calcium Gluconate 1000 mg/Sodium Chloride 110 ml @ 220 mls/hr 1X ONCE IV Last administered on 11/04/20at 18:11; Start 11/04/20 at 17:30; Stop 11/04/20 at 17:59; Status DC Ondansetron HCl (Zofran) 4 mg PRN Q8HRS PRN IVP NAUSEA/VOMITING; Start 11/04/20 at 18:30; Stop 11/05/20 at 07:38; Status DC Sodium Chloride 1,000 ml @ 125 mls/hr Q8H IV Last administered on 11/05/20at 10:30; Start 11/04/20 at 18:30; Stop 11/05/20 at 18:29; Status DC Ceftriaxone Sodium (Rocephin) 1 gm Q24H IVP ; Start 11/05/20 at 17:00; Stop 11/05/20 at 09:31; Status DC Morphine Sulfate (Morphine Sulfate) 4 mg PRN Q3HRS PRN IVP PAIN; Start 11/04/20 at 19:00 Ondansetron HCl (Zofran) 4 mg PRN Q6HRS PRN IVP NAUSEA/VOMITING; Start 11/04/20 at 19:15 Al Hydroxide/Mg Hydroxide (Mylanta Plus Xs) 30 ml PRN Q3HRS PRN PO HEARTBURN / GAS; Start 11/04/20 at 19:15 Calcium Carbonate/ Glycine (Tums) 500 mg PRN Q3HRS PRN PO UPSET STOMACH; Start 11/04/20 at 19:15 Zolpidem Tartrate (Ambien) 5 mg PRN QHS PRN PO INSOMNIA, MAY REPEAT IN 1HR; Start 11/04/20 at 19:15 Acetaminophen/ Hydrocodone Bitart (Lortab 5/325) 1 tab PRN Q4HRS PRN PO MODERATE-SEVERE PAIN; Start 11/04/20 at 19:15 Acetaminophen (Tylenol) 650 mg PRN Q6HRS PRN PO Headaches, Temp > 101.5F; Start 11/04/20 at 19:15 Magnesium Hydroxide (Milk Of Magnesia) 2,400 mg PRN Q12HR PRN PO CONSTIPATION; Start 11/04/20 at 19:15 Haloperidol Lactate (Haldol Inj) 5 mg PRN Q6HRS PRN IVP AGITATION; Start 11/04/20 at 19:15 Lorazepam (Ativan Inj) 2 mg PRN Q6HRS PRN IVP ANXIETY / AGITATION-1ST CHOICE Last administered on 11/04/20at 20:41; Start 11/04/20 at 19:15 Sodium Chloride 1,000 ml @ 100 mls/hr 1X ONCE IV ; Start 11/04/20 at 19:30; Stop 11/05/20 at 05:29; Status DC Lactobacillus Rhamnosus (Culturelle) 1 cap BID PO Last administered on 11/08/20at 09:29; Start 11/05/20 at 09:00 Cefepime HCl (Maxipime) 1 gm Q12HR IVP Last administered on 11/05/20at 09:41; Start 11/05/20 at 09:30; Stop 11/05/20 at 17:27; Status DC Linezolid/Dextrose 300 ml @ 300 mls/hr Q12HR IV ; Start 11/05/20 at 21:00; Stop 11/05/20 at 13:04; Status DC Linezolid/Dextrose 300 ml @ 300 mls/hr 1X ONCE IV Last administered on 11/05/20at 13:25; Start 11/05/20 at 09:45; Stop 11/05/20 at 10:44; Status DC Daptomycin 410 mg/ Sodium Chloride 50 ml @ 100 mls/hr Q24H IV Last administered on 11/07/20at 16:07; Start 11/05/20 at 14:00 Diltiazem HCl 125 mg/Sodium Chloride 125 ml @ 5 mls/hr CONT PRN IV SEE I/O RECORD Last administered on 11/06/20at 04:02; Start 11/05/20 at 16:30 Cefepime HCl (Maxipime) 2 gm Q8HRS IVP Last administered on 11/08/20at 06:23; Start 11/05/20 at 17:30; Stop 11/08/20 at 08:00; Status DC Aspirin (Aspirin Rectal Supp) [address] Last administered on 11/06/20at 12:46; Start 11/06/20 at 12:00; Stop 11/06/20 at 12:01; Status DC Amiodarone HCl (Cordarone) 200 mg DAILY PO Last administered on 11/08/20at 09:30; Start 11/06/20 at 12:00 Metoprolol Tartrate (Lopressor) 25 mg BID PO Last administered on 11/08/20at 09:30; Start 11/06/20 at 12:00 Furosemide (Lasix) 40 mg 1X ONCE IVP Last administered on 11/06/20at 18:35; Start 11/06/20 at 17:30; Stop 11/06/20 at 17:31; Status DC Furosemide (Lasix) 40 mg 1X ONCE IVP Last administered on 11/07/20at 14:47; Start 11/07/20 at 14:00; Stop 11/07/20 at 14:01; Status DC Ceftriaxone Sodium (Rocephin) 2 gm Q24H IVP Last administered on 11/08/20at 09:29; Start 11/08/20 at 09:00 Active Scripts Active Reported Vitamin B-1 (Thiamine Hcl) 100 Mg Tablet 100 Mg PO DAILY Thera-Gel ([place] Tar) 251 Ml Shampoo 251 Ml TP 3X/WEEK Flomax (Tamsulosin Hcl) 0.4 Mg Cap.er.24h 0.8 Mg PO HS Miralax (Polyethylene Glycol 3350) 17 Gm Powd.pack 1 Pkt PO DAILY Metoprolol Tartrate 25 Mg Tablet 25 Mg PO BID Haloperidol 2 Mg Tablet 1 Tab PO BID Finasteride 5 Mg Tablet 5 Mg PO DAILY Eliquis (Apixaban) 5 Mg Tablet 5 Mg PO BID Docusate Sodium 100 Mg Capsule 1 Cap PO BID 15 Days B-12 (Cyanocobalamin (Vitamin B-12)) 1,000 Mcg Tablet.er 1,000 Mcg PO DAILY Amiodarone Hcl 200 Mg Tablet 200 Mg PO DAILY Acetaminophen 325 Mg Tablet 650 Mg PO QID Abilify (Aripiprazole) 2 Mg Tablet 2 Mg PO HS Vitals/I & O Vital Sign - Last 24 Hours 11/07/20 11/07/20 11/07/20 11/07/20 11:00 15:00 19:25 20:20 Temp 98.5 98.4 98.6 98.5 98.4 98.6 Pulse 89 104 103 Resp 20 18 16 B/P (MAP) 127/72 (90) 133/85 (101) 137/80 (99) Pulse Ox 94 98 92 O2 Delivery Room Air Room Air Room Air Room Air 11/07/20 11/07/20 11/08/20 11/08/20 21:59 22:31 02:44 06:29 Temp 98.8 98.4 98.5 98.8 98.4 98.5 Pulse 103 105 84 104 Resp 16 18 16 B/P (MAP) 137/80 132/74 (93) 131/78 (95) 118/79 (92) Pulse Ox 90 94 94 O2 Delivery Room Air Room Air Room Air 11/08/20 11/08/20 11/08/20 08:00 09:30 09:30 Pulse 104 104 B/P (MAP) 118/79 118/79 O2 Delivery Room Air O2 Flow Rate 2.0 Intake and Output 11/07/20 11/07/20 11/08/20 15:00 23:00 07:00 Intake Total 150 ml 220 ml 0 ml Output Total 2100 ml Balance 150 ml -1880 ml 0 ml Justicifation of Admission Dx: Justifications for Admission: Justification of Admission Dx: Yes Sepsis: Bacteremia CHRISTOPHER HERNANDEZ MD Nov 08, 2020 10:33
[2020-11-08 11:41] VITALS: BP 109/85
[2020-11-08] MEDS: DAPTOmycin (GENERIC) IVPB 410 MG in IV NORMAL SALINE 50ML 50 ML IV SCH (13:41)
[2020-11-08 15:00] VITALS: BP 120/73
[2020-11-08 19:34] VITALS: BP 118/62
[2020-11-08 22:33] VITALS: BP 125/78
[2020-11-09 02:46] VITALS: BP 121/82
[2020-11-09 07:10] LABS: BASO # 0.1 x10^3/uL (0.0-0.2); BASO % 1 % (0-3); EOS # 0.2 x10^3/uL (0.0-0.7); EOS % 2 % (0-3); HEMOGLOBIN 11.1 g/dL (13.0-17.5); LYMPH # 2.3 x10^3/uL (1.0-4.8); LYMPH % 23 % (24-48); MEAN CORPUSCULAR HEMOGLOBIN 29 pg (25-35); MEAN CORPUSCULAR HGB CONC 34 g/dL (31-37); MEAN CORPUSCULAR VOLUME 86 fL (79-100); MONO # 0.7 x10^3/uL (0.0-1.1); MONO % 7 % (0-9); NEUT # 6.8 x10^3/uL (1.8-7.7); NEUT % 68 % (31-73); PLATELET COUNT 269 x10^3/uL (140-400); RED BLOOD COUNT 3.84 x10^6/uL (4.30-5.70); RED CELL DISTRIBUTION WIDTH 16.5 % (11.5-14.5)
[2020-11-09 07:24] LABS: CALCIUM 8.6 mg/dL (8.5-10.1); CREATININE 0.9 mg/dL (0.7-1.3); GFR 82.5; POTASSIUM 3.8 mmol/L (3.5-5.1)
--- NOTE | 2020-11-09 07:36 | PDOC ---
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 appears comfortable HEENT: Normocephalic, atraumatic. Anicteric. Poor dentition. Oral mucosa dry. NECK: Supple. No JVD. Right IJ clean. LUNGS: Decreased breath sounds at the base no accessory muscle use HEART: S1, S2. No murmurs. ABDOMEN: Soft, nontender, nondistended. GENITOURINARY: Harris in place. EXTREMITIES: No edema, no cyanosis. DERMATOLOGIC: Warm, dry. No generalized rash. NEUROLOGIC: Alert awake does not answer any questions PSYCHIATRIC: Calm Medications: Inpatient Meds: Medications reviewed. Labs: Lab Laboratory Tests Test 11/09/20 06:20 White Blood Count 10.0 x10^3/uL (4.0-11.0) Red Blood Count 3.84 x10^6/uL (4.30-5.70) Hemoglobin 11.1 g/dL (13.0-17.5) Hematocrit 33.0 % (39.0-53.0) Mean Corpuscular Volume 86 fL (79-100) Mean Corpuscular Hemoglobin 29 pg (25-35) Mean Corpuscular Hemoglobin Concent 34 g/dL (31-37) Red Cell Distribution Width 16.5 % (11.5-14.5) Platelet Count 269 x10^3/uL (140-400) Neutrophils (%) (Auto) 68 % (31-73) Lymphocytes (%) (Auto) 23 % (24-48) Monocytes (%) (Auto) 7 % (0-9) Eosinophils (%) (Auto) 2 % (0-3) Basophils (%) (Auto) 1 % (0-3) Neutrophils # (Auto) 6.8 x10^3/uL (1.8-7.7) Lymphocytes # (Auto) 2.3 x10^3/uL (1.0-4.8) Monocytes # (Auto) 0.7 x10^3/uL (0.0-1.1) Eosinophils # (Auto) 0.2 x10^3/uL (0.0-0.7) Basophils # (Auto) 0.1 x10^3/uL (0.0-0.2) Sodium Level 141 mmol/L (136-145) Potassium Level 3.8 mmol/L (3.5-5.1) Chloride Level 107 mmol/L (98-107) Carbon Dioxide Level 28 mmol/L (21-32) Anion Gap 6 (6-14) Blood Urea Nitrogen 12 mg/dL (8-26) Creatinine 0.9 mg/dL (0.7-1.3) Estimated GFR (Cockcroft-Gault) 82.5 Glucose Level 89 mg/dL (70-99) Calcium Level 8.6 mg/dL (8.5-10.1) Micro RUN DATE: 11/08/20 [facility] *LIVE* PAGE 1 RUN TIME: 1135 Specimen Inquiry -- PATIENT: XAVI LEWIS Rose ACCT: [id number] LOC: [address] [place] [address] U: [id number] AGE/SX: 75/M ROOM: [facility] 11/04/[address]: ROXANE RENTERIA MD : 1945 BED: 1 DIS: STATUS: ADM IN TLOC: SPEC #: [id number] MORALES: 11/04/20 STATUS: COMP REQ #: [id number] RECD: 11/04/[address] [facility] [address]: SALLY BARRETT DO SOURCE: VOID ENTR: 11/04/[address]: DICKSON WATT [facility]: ORDERED: URINE CULTURE Procedure Result URINE CULTURE Final Final GREATER THAN 100,000 CFU/ML [ESCHERICHIA COLI] on 11/06/20 at 0909 GREATER THAN 100,000 CFU/ML [ENTEROCOCCUS FAECALIS] on 11/07/20 at 0757 Testing Performed by: [facility] [address] [place] [address] For Inquires, the Physician may contact the Microbiology department at [phone] ESCHERICHIA COLI ENTEROCOCCUS FAECALIS ANTIMICROBIAL SUSCEPTIBILITY Final Comment Comment NEG SHELLI 56 ESCHERICHIA COLI ANTIBIOTIC RESULT INTERPRETATION AMPICILLIN/SULBACTAM >16/8 R AMIKACIN <=16 S AMPICILLIN >16 R AMOXICILLIN/K CLAVULANATE 16/8 I AZTREONAM <=4 S CEFTRIAXONE <=1 S CEFTAZIDIME <=1 S CEFOTAXIME <=2 S CEFOXITIN <=8 S CEFAZOLIN 8 S CIPROFLOXACIN <=0.25 S CEFEPIME <=2 S CEFUROXIME <=4 S CEFTAZIDIME/AVIBACTAM <=4 S ERTAPENEM <=0.5 S NITROFURANTOIN <=32 S GENTAMICIN <=2 S LEVOFLOXACIN <=0.5 S MEROPENEM <=1 S PIPERACILLIN/TAZOBACTAM <=8 S RUN DATE: 11/08/20 [facility] *LIVE* PAGE 2 RUN TIME: 1135 Specimen Inquiry SPEC: [id number] PATIENT: XAVI LEWIS [id number] (Continued) Procedure Result CONTINUED ON NEXT PAGE RUN DATE: 11/08/20 [facility] *LIVE* PAGE 3 RUN TIME: 1135 Specimen Inquiry SPEC: [id number] PATIENT: XAVI LEWIS [id number] (Continued) Procedure Result -- ANTIMICROBIAL SUSCEPTIBILITY Final (continued) TRIMETHOPRIM/SULFAMETHOXAZOLE <=0.5/9.5 S TETRACYCLINE <=4 S TOBRAMYCIN <=2 S Streptomycin Synergy Screen S Gentamicin Synergy Screen S POS SHELLI TYPE 38 ENTEROCOCCUS FAECALIS ANTIBIOTIC RESULT INTERPRETATION AMPICILLIN <=2 S CIPROFLOXACIN <=1 S DAPTOMYCIN 1 S NITROFURANTOIN <=32 S LINEZOLID 2 S LEVOFLOXACIN <=1 S TETRACYCLINE >8 R VANCOMYCIN 1 S Unless otherwise specified, Testing Performed by: [address] [address] For Inquires, the Physician may contact the Microbiology department at [phone] RUN DATE: 11/08/20 [facility] *LIVE* PAGE 1 RUN TIME: 900 Specimen Inquiry PATIENT: XAVI LEWIS ACCT: [id number] LOC: [address] [place] [address] U: [id number] AGE/SX: 75/M ROOM: 5 RE11/04/[address]: ROXANE RENTERIA MD : 1945 BED: 1 DIS: STATUS: ADM IN TLOC: SPEC #: [id number] MORALES: 11/04/20 STATUS: COMP REQ #: [id number] RECD: 11/04/[address]: SALLY BARRETT DO SOURCE: BLOOD ENTR: 11/05/[address]: DICKSON WATT [facility]: ORDERED: BLD CULT - LC ------- ----- Procedure Result BLOOD CULTURE LC Final Final GRAM NEGATIVE RODS FINAL ID= [ESCHERICHIA COLI] GRAM POSITIVE COCCI FINAL ID= [ENTEROCOCCUS FAECALIS] ESCHERICHIA COLI ENTEROCOCCUS FAECALIS ANTIMICROBIAL SUSCEPTIBILITY Final Comment Comment NEG SHELLI 56 ESCHERICHIA COLI ANTIBIOTIC RESULT INTERPRETATION AMPICILLIN/SULBACTAM >16/8 R AMIKACIN <=16 S AMPICILLIN >16 R AMOXICILLIN/K CLAVULANATE 16/8 I AZTREONAM <=4 S CEFTRIAXONE <=1 S CEFTAZIDIME <=1 S CEFOTAXIME <=2 S CEFOXITIN <=8 S CEFAZOLIN >16 R CIPROFLOXACIN <=0.25 S CEFEPIME <=2 S CEFUROXIME <=4 S CEFTAZIDIME/AVIBACTAM <=4 S ERTAPENEM <=0.5 S GENTAMICIN <=2 S LEVOFLOXACIN <=0.5 S MEROPENEM <=1 S PIPERACILLIN/TAZOBACTAM 32 I TRIMETHOPRIM/SULFAMETHOXAZOLE <=0.5/9.5 S TETRACYCLINE <=4 S TOBRAMYCIN <=2 S Streptomycin Synergy Screen S Gentamicin Synergy Screen S POS SHELLI TYPE 38 ENTEROCOCCUS FAECALIS RUN DATE: 11/08/20 [facility] *LIVE* PAGE 2 RUN TIME: 900 Specimen Inquiry SPEC: [id number] PATIENT: DEBBIEXAVI L [id number] (Continued) Procedure Result CONTINUED ON NEXT PAGE RUN DATE: 11/08/20 [facility] *LIVE* PAGE 3 RUN TIME: 0901 Specimen Inquiry SPEC: [id number] PATIENT: XAVI LEWIS [id number] (Continued) ---- -------- Procedure Result ANTIMICROBIAL SUSCEPTIBILITY Final (continued) ANTIBIOTIC RESULT INTERPRETATION AMPICILLIN <=2 S DAPTOMYCIN 1 S LINEZOLID 2 S VANCOMYCIN 1 S Unless otherwise specified, Testing Performed by: [address] [address] For Inquires, the Physician may contact the Microbiology department at [phone] Objective: Assessment: 1. Sepsis, 2. Gram-negative and gram-positive bacteremia poa.source E. coli bacteremia and enterococcus 3. E. coli and enterococcus fecalis pyelonephritis 4. Leukocytosis. 5. Lactic acidosis. 6. Anemia. 7. Hematuria. 8. Dementia. 9. History of urinary retention with chronic indwelling Harris. History of recurrent UTI, 10. Atrial fibrillation. CT abdomen and pelvis November 05 Impression: 1. Perinephric and perivesicular fat stranding consistent with provided history of urinary tract infection. 2. Segmental wall thickening and adjacent fat stranding of a loop of small bowel in the midabdomen concerning for enteritis. 3. No intra-abdominal abscess identified. Plan: Plan of Care 1. Continue ceftriaxone 2. Continue daptomycin 3. Follow-up repeat blood cultures 11/06 negative so far 4. Follow up labs and cultures. 5. Maintain aspiration precaution. 6. Change Harris if not done already. 7. Continue supportive care Discussed with the nursing staff. LILIYA BARBER MD Nov 09, 2020 07:36
[2020-11-09 07:55] VITALS: BP 107/57
[2020-11-09] MEDS: LACTOBACILLUS RHAMNOSUS GG 1 CAPSULE. PO SCH (09:00)
[2020-11-09] MEDS: AMIODARONE HCL 200 MG TABLET. PO SCH (09:00)
[2020-11-09] MEDS: cefTRIAXone IV Push 2 GM VIAL. IVP SCH (09:36)
[2020-11-09 10:13] VITALS: BP 145/83
--- NOTE | 2020-11-09 10:15 | PDOC ---
Date of Service: DATE: 11/09/20 TIME: 10:10 Subjective: Subjective: D/w guard - no diarrhea, no c/o abd pain, eats w/ help from staff. Objective: Objective: 4 stools charted 11/08. Vital Signs: Vital Signs Date Time Temp Pulse Resp B/P (MAP) Pulse Ox O2 Delivery O2 Flow Rate FiO2 11/09/20 07:55 98.3 95 16 107/57 (74) 92 Room Air 98.3 11/08/20 08:00 2.0 Labs: Laboratory Tests Test 11/09/20 06:20 White Blood Count 10.0 x10^3/uL Red Blood Count 3.84 x10^6/uL Hemoglobin 11.1 g/dL Hematocrit 33.0 % Mean Corpuscular Volume 86 fL Mean Corpuscular Hemoglobin 29 pg Mean Corpuscular Hemoglobin Concent 34 g/dL Red Cell Distribution Width 16.5 % Platelet Count 269 x10^3/uL Neutrophils (%) (Auto) 68 % Lymphocytes (%) (Auto) 23 % Monocytes (%) (Auto) 7 % Eosinophils (%) (Auto) 2 % Basophils (%) (Auto) 1 % Neutrophils # (Auto) 6.8 x10^3/uL Lymphocytes # (Auto) 2.3 x10^3/uL Monocytes # (Auto) 0.7 x10^3/uL Eosinophils # (Auto) 0.2 x10^3/uL Basophils # (Auto) 0.1 x10^3/uL Sodium Level 141 mmol/L Potassium Level 3.8 mmol/L Chloride Level 107 mmol/L Carbon Dioxide Level 28 mmol/L Anion Gap 6 Blood Urea Nitrogen 12 mg/dL Creatinine 0.9 mg/dL Estimated GFR (Cockcroft-Gault) 82.5 Glucose Level 89 mg/dL Calcium Level 8.6 mg/dL BLOOD CULTURE LC Final Final GRAM NEGATIVE RODS FINAL ID= [ESCHERICHIA COLI] GRAM POSITIVE COCCI FINAL ID= [ENTEROCOCCUS FAECALIS] ESCHERICHIA COLI ENTEROCOCCUS FAECALIS URINE CULTURE Final Final GREATER THAN 100,000 CFU/ML [ESCHERICHIA COLI] on 11/06/20 at 0909 GREATER THAN 100,000 CFU/ML [ENTEROCOCCUS FAECALIS] PE: GEN: NAD - guard present, breakfast tray untouched LUNGS: clear anteriorly, room air HEART: irregular rhythm ABD: non-distended NEURO/PSYCH: sleeping, not awakened A/P: Bacteremia/UTI - cultures as above REGGIE/ACD - Hgb improved, no obvious bleeding Abnormal CT report/concern for enteritis - no vomiting, c/o abd pain, or d iarrhea H/o A Fib and dementia - seems Eliquis has been held COVID negative -- Continue support from GI standpoint. No plans for inpt 'scopes. Resume Eliquis per cardiology. Update - after I saw, had BANK APPRAISER eval and now NPO. BANK APPRAISER Bedside Swallow Eval: Moderate oropharyngeal dysphagia w/ frequent overt s/s aspiration across consistencies. Mildly prolonged oral A-P transport and decreased hyolaryngeal mvmt which likely results in incomplete airway protection during swallowing as well as possible pharyngeal residues. No safe PO consistency identified at this time. Pt fully awake throughout, so poor alertness was not a factor. Return to PO intake possibly dependent on improved mental status. See full report for details. Recommendations: NPO w/ aggressive oral care. Will continue BANK APPRAISER f/u to determine safety of PO intake. Justicifation of Admission Dx: Justifications for Admission: Justification of Admission Dx: Yes Sepsis: Bacteremia BOY KANG Nov 09, 2020 10:15
--- NOTE | 2020-11-09 11:05 | PDOC ---
[employer] PROGRESS NOTE Date of Service DOS: DATE: 11/09/20 TIME: 11:00 Chief Complaint Chief Complaint Assessment/Plan Assessment/Plan Urosepsis Acute cystitis Chronic indwelling Corado Hematuria secondary to chronic indwelling Corado Normocytic anemia Atrial fibrillation Dementia Severe malnutrition Segmental wall thickening and adjacent fat stranding of a loop of small bowel in the midabdomen concerning for enteritis. Plan: continuous IV fluids Corado catheter was changed in the ED Provide pain medications home medications we can once identified FEN - Cardiac diet PPX - SCDs FULL CODE Dispo - inpatient for above Discussed with patient but did not name surrogate decision-maker Continue Rocephin and daptomycin. d/w RN Justifications for Admission Justifications for Admission Other Justification History of Present Illness History of Present Illness Identification/Chief Complaint Chief Complaint Blood in urine Source Source: Chart review History of Present Illness History of Present Illness Patient 75-year-old male with past medical history dementia, chronic indwelling Corado catheter, who [facility] due to blood found in his Corado catheter. His Corado was recently changed at his correctional facility, he was sent to the ED due to continued bleeding. He was supposed to follow-up at [facility] for urology, however they never returned to [facility] because his blood pressure was low, 84/40 mmHg. Upon arrival in the ED he was tachycardic, afebrile, we did require 2 L nasal cannula due to some hypoxia. Labs on admission showed WBC 13.8, hemoglobin 8.6, hematocrit 26.5, MCV 88, platelets 225, lactic acid 2.1, albumin 2.0. His rapid COVID-19 was negative. His urinalysis showed RBCs TNTC, WBC >40, urine bacteria moderate, further UA results were not performed likely due to gross hematuria. He has been vaccinated against COVID-19. He received Rocephin 1 g and IV fluids. Will admit patient for further medical management. Medical Problems: (1) Person under investigation for COVID-19 Status: Acute (2) Sepsis Status: Acute (3) UTI (urinary tract infection) Status: Acute 11-07 URINE CULTURE Preliminary Preliminary GREATER THAN 100,000 CFU/ML [ESCHERICHIA COLI] on 11/06/20 at 0909 GREATER THAN 100,000 CFU/ML [ENTEROCOCCUS FAECALIS] SEPSIS WITH BACTEREMIA Urosepsis Acute cystitis Chronic indwelling Corado Hematuria secondary to chronic indwelling Corado Normocytic anemia Atrial fibrillation Dementia Severe malnutrition Segmental wall thickening and adjacent fat stranding of a loop of small bowel in the midabdomen concerning for enteritis. continuous IV fluids Corado catheter was changed in the ED PRN pain medications home medications we can once identified FEN - Cardiac diet PPX - SCDs FULL CODE Dispo - inpatient for above Discussed with patient but did not name surrogate decision-maker CT abdomen and pelvis. REVIEWED REPEAT BLOOD CULTURES CONSULT GI RE ABNORMAL CT cefepimE CONT daptomycin. d/w RN 11-08 URINE CULTURE Preliminary Preliminary GREATER THAN 100,000 CFU/ML [ESCHERICHIA COLI] on 11/06/20 at 0909 GREATER THAN 100,000 CFU/ML [ENTEROCOCCUS FAECALIS] SEPSIS WITH BACTEREMIA Urosepsis Acute cystitis Chronic indwelling Corado Hematuria secondary to chronic indwelling Corado Normocytic anemia Atrial fibrillation Dementia Severe malnutrition Segmental wall thickening and adjacent fat stranding of a loop of small bowel in the midabdomen concerning for enteritis. continuous IV fluids Corado catheter was changed in the ED PRN pain medications home medications we can once identified FEN - Cardiac diet PPX - SCDs FULL CODE Dispo - inpatient for above Discussed with patient but did not name surrogate decision-maker CT abdomen and pelvis. REVIEWED REPEAT BLOOD CULTURES CONSULT GI RE ABNORMAL CT d/c cefepimE CONT daptomycin. , restart rocephin 2 gm iv q 24 hrs d/w RN 11/09/20 Patient seen and examined at bedside. No major events or changes overnight. Continue antibiotics per ID. Change corado. Vitals/I&O Vitals/I&O: Vital Signs Date Time Temp Pulse Resp B/P (MAP) Pulse Ox O2 Delivery O2 Flow Rate FiO2 11/09/20 10:13 97.7 115 14 145/83 (103) 97 Room Air 97.7 11/08/20 08:00 2.0 I & O 11/08/20 11/08/20 11/09/20 15:00 23:00 07:00 Intake Total 120 ml 440 ml 0 ml Output Total 2100 ml 450 ml Balance -1980 ml 440 ml -450 ml Physical Exam Physical Exam: GENERAL: dosing Does not answer any questions. appears comfortable HEENT: Normocephalic, atraumatic. Anicteric. Poor dentition. Oral mucosa dry. NECK: Supple. No JVD. Right IJ clean. LUNGS: Decreased breath sounds at the base no accessory muscle use HEART: S1, S2. No murmurs. ABDOMEN: Soft, nontender, nondistended. GENITOURINARY: Corado in place. EXTREMITIES: No edema, no cyanosis. DERMATOLOGIC: Warm, dry. No generalized rash. NEUROLOGIC: Alert awake does not answer any questions PSYCHIATRIC: Calm General: Cooperative, No acute distress, Other (nonverbal) Heart: Regular rate, Normal S1 Lungs: Clear Abdomen: Soft, No tenderness Extremities: No cyanosis, No edema Skin: No breakdown, No significant lesion Labs Labs: Laboratory Tests Test 11/09/20 06:20 White Blood Count 10.0 x10^3/uL (4.0-11.0) Red Blood Count 3.84 x10^6/uL (4.30-5.70) Hemoglobin 11.1 g/dL (13.0-17.5) Hematocrit 33.0 % (39.0-53.0) Mean Corpuscular Volume 86 fL (79-100) Mean Corpuscular Hemoglobin 29 pg (25-35) Mean Corpuscular Hemoglobin Concent 34 g/dL (31-37) Red Cell Distribution Width 16.5 % (11.5-14.5) Platelet Count 269 x10^3/uL (140-400) Neutrophils (%) (Auto) 68 % (31-73) Lymphocytes (%) (Auto) 23 % (24-48) Monocytes (%) (Auto) 7 % (0-9) Eosinophils (%) (Auto) 2 % (0-3) Basophils (%) (Auto) 1 % (0-3) Neutrophils # (Auto) 6.8 x10^3/uL (1.8-7.7) Lymphocytes # (Auto) 2.3 x10^3/uL (1.0-4.8) Monocytes # (Auto) 0.7 x10^3/uL (0.0-1.1) Eosinophils # (Auto) 0.2 x10^3/uL (0.0-0.7) Basophils # (Auto) 0.1 x10^3/uL (0.0-0.2) Sodium Level 141 mmol/L (136-145) Potassium Level 3.8 mmol/L (3.5-5.1) Chloride Level 107 mmol/L (98-107) Carbon Dioxide Level 28 mmol/L (21-32) Anion Gap 6 (6-14) Blood Urea Nitrogen 12 mg/dL (8-26) Creatinine 0.9 mg/dL (0.7-1.3) Estimated GFR (Cockcroft-Gault) 82.5 Glucose Level 89 mg/dL (70-99) Calcium Level 8.6 mg/dL (8.5-10.1) Assessment and Plan Assessmemt and Plan Problems Medical Problems: (1) Person under investigation for COVID-19 Status: Acute (2) Sepsis Status: Acute (3) UTI (urinary tract infection) Status: Acute Comment Review of Relevant I have reviewed the following items jose cruz (where applicable) has been applied. Justifications for Admission Other Justification RACIEL FREITAS MD Nov 09, 2020 11:05
[2020-11-09] MEDS: METOPROLOL IV PUSH 5 MG/5 ML VIAL. IVP SCH ×2 (13:18→18:00)
[2020-11-09 15:28] VITALS: BP 122/81
[2020-11-09] MEDS: AA 4.25 %/CALCIUM/LYTES/D5W 1,000 ML IV SCH (15:40)
[2020-11-09] MEDS: DAPTOmycin (GENERIC) IVPB 410 MG in IV NORMAL SALINE 50ML 50 ML IV SCH (15:41)
[2020-11-09 19:57] VITALS: BP 144/87
[2020-11-09 22:34] VITALS: BP 148/78
[2020-11-10] MEDS: METOPROLOL IV PUSH 5 MG/5 ML VIAL. IVP SCH ×4 (00:05→18:00)
[2020-11-10] MEDS: AA 4.25 %/CALCIUM/LYTES/D5W 1,000 ML IV SCH ×2 (02:33→18:29)
[2020-11-10 02:42] VITALS: BP 174/89
[2020-11-10] MEDS: AMIODARONE HCL 200 MG TABLET. PO SCH (07:27)
[2020-11-10 07:55] VITALS: BP 166/67
[2020-11-10] MEDS: cefTRIAXone IV Push 2 GM VIAL. IVP SCH (08:46)
--- NOTE | 2020-11-10 08:52 | PDOC ---
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 appears comfortable HEENT: Normocephalic, atraumatic. Anicteric. Poor dentition. Oral mucosa dry. NECK: Supple. No JVD. Right IJ clean. LUNGS: Decreased breath sounds at the base no accessory muscle use HEART: S1, S2. No murmurs. ABDOMEN: Soft, nontender, nondistended. GENITOURINARY: Harris in place. EXTREMITIES: No edema, no cyanosis. DERMATOLOGIC: Warm, dry. No generalized rash. NEUROLOGIC: Alert awake does not answer any questions PSYCHIATRIC: Calm Medications: Inpatient Meds: Medications reviewed. Labs: Micro ---- -------- RUN DATE: 11/08/20 [facility] *LIVE* PAGE 1 RUN TIME: 1135 Specimen Inquiry PATIENT: XAVI LEWIS ACCT: [id number] LOC: [address] [place] [address] U: [id number] AGE/SX: 75/M ROOM: [facility] RE11/04/[address]: ROXANE RENTERIA MD : 1945 BED: 1 DIS: STATUS: ADM IN TLOC: SPEC #: [id number] MORALES: 11/04/20 STATUS: COMP REQ #: [id number] RECD: 11/04/[address] [facility] [address]: SALLY BARRETT DO SOURCE: VOID ENTR: 11/04/[address]: DICKSON WATT [facility]: ORDERED: URINE CULTURE Procedure Result URINE CULTURE Final Final GREATER THAN 100,000 CFU/ML [ESCHERICHIA COLI] on 11/06/20 at 0909 GREATER THAN 100,000 CFU/ML [ENTEROCOCCUS FAECALIS] on 11/07/20 at 0757 Testing Performed by: [address] [address] For Inquires, the Physician may contact the Microbiology department at [phone] ESCHERICHIA COLI ENTEROCOCCUS FAECALIS ANTIMICROBIAL SUSCEPTIBILITY Final Comment Comment NEG SHELLI 56 ESCHERICHIA COLI ANTIBIOTIC RESULT INTERPRETATION AMPICILLIN/SULBACTAM >16/8 R AMIKACIN <=16 S AMPICILLIN >16 R AMOXICILLIN/K CLAVULANATE 16/8 I AZTREONAM <=4 S CEFTRIAXONE <=1 S CEFTAZIDIME <=1 S CEFOTAXIME <=2 S CEFOXITIN <=8 S CEFAZOLIN 8 S CIPROFLOXACIN <=0.25 S CEFEPIME <=2 S CEFUROXIME <=4 S CEFTAZIDIME/AVIBACTAM <=4 S ERTAPENEM <=0.5 S NITROFURANTOIN <=32 S GENTAMICIN <=2 S LEVOFLOXACIN <=0.5 S MEROPENEM <=1 S PIPERACILLIN/TAZOBACTAM <=8 S RUN DATE: 11/08/20 [facility] *LIVE* PAGE 2 RUN TIME: 1135 Specimen Inquiry SPEC: [id number] PATIENT: XAVI LEWIS [id number] (Continued) ------- ----- Procedure Result CONTINUED ON NEXT PAGE RUN DATE: 11/08/20 [facility] *LIVE* PAGE 3 RUN TIME: 1135 Specimen Inquiry SPEC: [id number] PATIENT: XAVI LEWIS [id number] (Continued) Procedure Result ANTIMICROBIAL SUSCEPTIBILITY Final (continued) TRIMETHOPRIM/SULFAMETHOXAZOLE <=0.5/9.5 S TETRACYCLINE <=4 S TOBRAMYCIN <=2 S Streptomycin Synergy Screen S Gentamicin Synergy Screen S POS SHELLI TYPE 38 ENTEROCOCCUS FAECALIS ANTIBIOTIC RESULT INTERPRETATION AMPICILLIN <=2 S CIPROFLOXACIN <=1 S DAPTOMYCIN 1 S NITROFURANTOIN <=32 S LINEZOLID 2 S LEVOFLOXACIN <=1 S TETRACYCLINE >8 R VANCOMYCIN 1 S Unless otherwise specified, Testing Performed by: [address] [address] For Inquires, the Physician may contact the Microbiology department at [phone] RUN DATE: 11/08/20 [facility] *LIVE* PAGE 1 RUN TIME: 900 Specimen Inquiry PATIENT: XAVI LEWIS ACCT: [id number] LOC: [address] [place] [address] U: [id number] AGE/SX: 75/M ROOM: [facility] RE11/04/[address]: ROXANE RENTERIA MD : 1945 BED: 1 DIS: STATUS: ADM IN TLOC: SPEC #: [id number] MORALES: 11/04/20 STATUS: COMP REQ #: [id number] RECD: 11/04/[address] [facility] [address]: SALLY BARRETT DO SOURCE: BLOOD ENTR: 11/05/[address]: DICKSON WATT SPDESC: ORDERED: BLD CULT - LC Procedure Result BLOOD CULTURE LC Final Final GRAM NEGATIVE RODS FINAL ID= [ESCHERICHIA COLI] GRAM POSITIVE COCCI FINAL ID= [ENTEROCOCCUS FAECALIS] ESCHERICHIA COLI ENTEROCOCCUS FAECALIS ANTIMICROBIAL SUSCEPTIBILITY Final Comment Comment NEG SHELLI 56 ESCHERICHIA COLI ANTIBIOTIC RESULT INTERPRETATION AMPICILLIN/SULBACTAM >16/8 R AMIKACIN <=16 S AMPICILLIN >16 R AMOXICILLIN/K CLAVULANATE 16/8 I AZTREONAM <=4 S CEFTRIAXONE <=1 S CEFTAZIDIME <=1 S CEFOTAXIME <=2 S CEFOXITIN <=8 S CEFAZOLIN >16 R CIPROFLOXACIN <=0.25 S CEFEPIME <=2 S CEFUROXIME <=4 S CEFTAZIDIME/AVIBACTAM <=4 S ERTAPENEM <=0.5 S GENTAMICIN <=2 S LEVOFLOXACIN <=0.5 S MEROPENEM <=1 S PIPERACILLIN/TAZOBACTAM 32 I TRIMETHOPRIM/SULFAMETHOXAZOLE <=0.5/9.5 S TETRACYCLINE <=4 S TOBRAMYCIN <=2 S Streptomycin Synergy Screen S Gentamicin Synergy Screen S POS SHELLI TYPE 38 ENTEROCOCCUS FAECALIS --------- --- RUN DATE: 11/08/20 [facility] *LIVE* PAGE 2 RUN TIME: 900 Specimen Inquiry SPEC: [id number] PATIENT: XAVI LEWIS [id number] (Continued) Procedure Result CONTINUED ON NEXT PAGE RUN DATE: 11/08/20 [facility] *LIVE* PAGE 3 RUN TIME: 0901 Specimen Inquiry -- SPEC: [id number] PATIENT: XAVI LEWIS [id number] (Continued) Procedure Result ANTIMICROBIAL SUSCEPTIBILITY Final (continued) ANTIBIOTIC RESULT INTERPRETATION AMPICILLIN <=2 S DAPTOMYCIN 1 S LINEZOLID 2 S VANCOMYCIN 1 S Unless otherwise specified, Testing Performed by: [address] [address] For Inquires, the Physician may contact the Microbiology department at [phone] Objective: Assessment: 1. Sepsis, 2. Gram-negative and gram-positive bacteremia poa.source E. coli bacteremia and enterococcus 3. E. coli and enterococcus fecalis pyelonephritis 4. Leukocytosis. 5. Lactic acidosis. 6. Anemia. 7. Hematuria. 8. Dementia. 9. History of urinary retention with chronic indwelling Harris. History of recurrent UTI, 10. Atrial fibrillation. CT abdomen and pelvis November 05 Impression: 1. Perinephric and perivesicular fat stranding consistent with provided history of urinary tract infection. 2. Segmental wall thickening and adjacent fat stranding of a loop of small bowel in the midabdomen concerning for enteritis. 3. No intra-abdominal abscess identified. Plan: Plan of Care 1. Continue Ceftriaxone and Daptomycin 2. When ready for discharge transition to linezolid and cefdinir for 7 more days 3. Follow-up repeat blood cultures 11/06 negative so far 4. Follow up labs and cultures. 5. Maintain aspiration precaution. 6. Change Harris if not done already. 7. Continue supportive care Discussed with the nursing staff. LILIYA BARBER MD Nov 10, 2020 08:51
--- NOTE | 2020-11-10 10:12 | PDOC ---
Date of Service: DATE: 11/10/20 TIME: 10:08 Subjective: Subjective: Denies pain, says he doesn't know where he is. Objective: Objective: D/w nurse - pt noted at times to not tolerate oral secretions. On PPN. 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 Justicifation of Admission Dx: Justifications for Admission: Justification of Admission Dx: Yes Sepsis: Bacteremia BOY KANG Nov 10, 2020 10:12
[2020-11-10 11:25] VITALS: BP 135/74
[2020-11-10] MEDS: DAPTOmycin (GENERIC) IVPB 410 MG in IV NORMAL SALINE 50ML 50 ML IV SCH (13:18)
--- NOTE | 2020-11-10 14:55 | PDOC ---
[employer] PROGRESS NOTE Date of Service DOS: DATE: 11/10/20 TIME: 14:53 Chief Complaint Chief Complaint Assessment/Plan Assessment/Plan Urosepsis Acute cystitis Chronic indwelling Corado Hematuria secondary to chronic indwelling Corado Normocytic anemia Atrial fibrillation Dementia Severe malnutrition Segmental wall thickening and adjacent fat stranding of a loop of small bowel in the midabdomen concerning for enteritis. Plan: continuous IV fluids Corado catheter was changed in the ED Provide pain medications N.p.o., patient failed multiple speech evaluations. May need PEG tube. home medications we can once identified PPX - SCDs FULL CODE Dispo - inpatient for above Discussed with patient but did not name surrogate decision-maker Continue Rocephin and daptomycin. d/w RN Justifications for Admission Justifications for Admission Other Justification History of Present Illness History of Present Illness Identification/Chief Complaint Chief Complaint Blood in urine Source Source: Chart review History of Present Illness History of Present Illness Patient 75-year-old male with past medical history dementia, chronic indwelling Corado catheter, who [facility] due to blood found in his Corado catheter. His Corado was recently changed at his correctional facility, he was sent to the ED due to continued bleeding. He was supposed to follow-up at [facility] for urology, however they never returned to [facility] because his blood pressure was low, 84/40 mmHg. Upon arrival in the ED he was tachycardic, afebrile, we did require 2 L nasal cannula due to some hypoxia. Labs on admission showed WBC 13.8, hemoglobin 8.6, hematocrit 26.5, MCV 88, platelets 225, lactic acid 2.1, albumin 2.0. His rapid COVID-19 was negative. His urinalysis showed RBCs TNTC, WBC >40, urine bacteria moderate, further UA results were not performed likely due to gross hematuria. He has been vaccinated against COVID-19. He received Rocephin 1 g and IV fluids. Will admit patient for further medical management. Medical Problems: (1) Person under investigation for COVID-19 Status: Acute (2) Sepsis Status: Acute (3) UTI (urinary tract infection) Status: Acute 11-07 URINE CULTURE Preliminary Preliminary GREATER THAN 100,000 CFU/ML [ESCHERICHIA COLI] on 11/06/20 at 0909 GREATER THAN 100,000 CFU/ML [ENTEROCOCCUS FAECALIS] SEPSIS WITH BACTEREMIA Urosepsis Acute cystitis Chronic indwelling Corado Hematuria secondary to chronic indwelling Corado Normocytic anemia Atrial fibrillation Dementia Severe malnutrition Segmental wall thickening and adjacent fat stranding of a loop of small bowel in the midabdomen concerning for enteritis. continuous IV fluids Corado catheter was changed in the ED PRN pain medications home medications we can once identified FEN - Cardiac diet PPX - SCDs FULL CODE Dispo - inpatient for above Discussed with patient but did not name surrogate decision-maker CT abdomen and pelvis. REVIEWED REPEAT BLOOD CULTURES CONSULT GI RE ABNORMAL CT cefepimE CONT daptomycin. d/w RN 11-08 URINE CULTURE Preliminary Preliminary GREATER THAN 100,000 CFU/ML [ESCHERICHIA COLI] on 11/06/20 at 0909 GREATER THAN 100,000 CFU/ML [ENTEROCOCCUS FAECALIS] SEPSIS WITH BACTEREMIA Urosepsis Acute cystitis Chronic indwelling Corado Hematuria secondary to chronic indwelling Corado Normocytic anemia Atrial fibrillation Dementia Severe malnutrition Segmental wall thickening and adjacent fat stranding of a loop of small bowel in the midabdomen concerning for enteritis. continuous IV fluids Corado catheter was changed in the ED PRN pain medications home medications we can once identified FEN - Cardiac diet PPX - SCDs FULL CODE Dispo - inpatient for above Discussed with patient but did not name surrogate decision-maker CT abdomen and pelvis. REVIEWED REPEAT BLOOD CULTURES CONSULT GI RE ABNORMAL CT d/c cefepimE CONT daptomycin. , restart rocephin 2 gm iv q 24 hrs d/w RN 11/09/20 Patient seen and examined at bedside. No major events or changes overnight. Continue antibiotics per ID. Change corado. 11/10 No major events or changes overnight. Patient seen and examined at bedside. Continue antibiotics. Discussed with patient's correctional facility certified medical assistant today, they were able to provide a possible phone number for a named Manasa. Will attempt to contact her. Keep n.p.o. May need PEG tube. Plan discussed bedside RN Vitals/I&O Vitals/I&O: Vital Signs Date Time Temp Pulse Resp B/P (MAP) Pulse Ox O2 Delivery O2 Flow Rate FiO2 11/10/20 13:17 89 135/74 11/10/20 11:25 98.1 16 96 Room Air 98.1 I & O 11/09/20 11/09/20 11/10/20 15:00 23:00 07:00 Intake Total 0 ml 840 ml 0 ml Output Total 750 ml Balance 0 ml 840 ml -750 ml Physical Exam Physical Exam: GENERAL: dosing Does not answer any questions. appears comfortable HEENT: Normocephalic, atraumatic. Anicteric. Poor dentition. Oral mucosa dry. NECK: Supple. No JVD. Right IJ clean. LUNGS: Decreased breath sounds at the base no accessory muscle use HEART: S1, S2. No murmurs. ABDOMEN: Soft, nontender, nondistended. GENITOURINARY: Corado in place. EXTREMITIES: No edema, no cyanosis. DERMATOLOGIC: Warm, dry. No generalized rash. NEUROLOGIC: Alert awake does not answer any questions PSYCHIATRIC: Calm General: Cooperative, No acute distress, Other (nonverbal) Heart: Regular rate, Normal S1 Lungs: Clear Abdomen: Soft, No tenderness Extremities: No cyanosis, No edema Skin: No breakdown, No significant lesion Assessment and Plan Assessmemt and Plan Problems Medical Problems: (1) Person under investigation for COVID-19 Status: Acute (2) Sepsis Status: Acute (3) UTI (urinary tract infection) Status: Acute Comment Review of Relevant I have reviewed the following items jose cruz (where applicable) has been applied. Medications: Current Medications Medications (Trade) Dose Ordered Sig/Betsy Route PRN Reason Start Time Stop Time Status Last Admin Dose Admin Lorazepam (Ativan Inj) 1 mg 1X ONCE IVP 11/10/20 12:15 11/10/20 12:16 DC 11/10/20 13:18 Justifications for Admission Other Justification RACIEL FREITAS MD Nov 10, 2020 14:55
[2020-11-10 15:10] VITALS: BP 119/57
[2020-11-10 19:00] VITALS: BP 139/73
--- NOTE | 2020-11-10 19:45 | NUR ---
Pt in bed assessment completed vss poc explained pt nonverbal but shook his head no when asked if he was having any pain. guard at bedside will resume care and continue to monitor pt.
[2020-11-10 23:15] VITALS: BP 125/70
[2020-11-11] MEDS: METOPROLOL IV PUSH 5 MG/5 ML VIAL. IVP SCH ×4 (00:07→15:56)
[2020-11-11 02:28] VITALS: BP 142/69
[2020-11-11] MEDS: AA 4.25 %/CALCIUM/LYTES/D5W 1,000 ML IV SCH ×2 (05:25→19:34)
[2020-11-11 07:00] VITALS: BP 113/58
[2020-11-11] MEDS: AMIODARONE HCL 200 MG TABLET. PO SCH (08:39)
[2020-11-11] MEDS: cefTRIAXone IV Push 2 GM VIAL. IVP SCH (08:49)
--- NOTE | 2020-11-11 09:59 | PDOC ---
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 appears comfortable HEENT: Normocephalic, atraumatic. Anicteric. Poor dentition. Oral mucosa dry. NECK: Supple. No JVD. Right IJ clean. LUNGS: Decreased breath sounds at the base no accessory muscle use HEART: S1, S2. No murmurs. ABDOMEN: Soft, nontender, nondistended. GENITOURINARY: Harris in place. EXTREMITIES: No edema, no cyanosis. DERMATOLOGIC: Warm, dry. No generalized rash. NEUROLOGIC: Alert awake does not answer any questions PSYCHIATRIC: Calm Medications: Inpatient Meds: Medications reviewed. Labs: Micro RUN DATE: 11/08/20 [facility] *LIVE* PAGE 1 RUN TIME: 1135 Specimen Inquiry --- --------- PATIENT: XAVI LEWIS ACCT: [id number] LOC: [address] [place] [address] U: [id number] AGE/SX: 75/M ROOM: [facility] RE11/04/[address]: ROXANE RENTERIA MD : 1945 BED: 1 DIS: STATUS: ADM IN TLOC: SPEC #: [id number] MORALES: 11/04/20 STATUS: COMP REQ #: [id number] RECD: 11/04/[address] [facility] [address]: SALLY BARRETT DO SOURCE: VOID ENTR: 11/04/[address]: DICKSON WATT [facility]: ORDERED: URINE CULTURE Procedure Result URINE CULTURE Final Final GREATER THAN 100,000 CFU/ML [ESCHERICHIA COLI] on 11/06/20 at 0909 GREATER THAN 100,000 CFU/ML [ENTEROCOCCUS FAECALIS] on 11/07/20 at 0757 Testing Performed by: [address] [address] For Inquires, the Physician may contact the Microbiology department at [phone] ESCHERICHIA COLI ENTEROCOCCUS FAECALIS ANTIMICROBIAL SUSCEPTIBILITY Final Comment Comment NEG SHELLI 56 ESCHERICHIA COLI ANTIBIOTIC RESULT INTERPRETATION AMPICILLIN/SULBACTAM >16/8 R AMIKACIN <=16 S AMPICILLIN >16 R AMOXICILLIN/K CLAVULANATE 16/8 I AZTREONAM <=4 S CEFTRIAXONE <=1 S CEFTAZIDIME <=1 S CEFOTAXIME <=2 S CEFOXITIN <=8 S CEFAZOLIN 8 S CIPROFLOXACIN <=0.25 S CEFEPIME <=2 S CEFUROXIME <=4 S CEFTAZIDIME/AVIBACTAM <=4 S ERTAPENEM <=0.5 S NITROFURANTOIN <=32 S GENTAMICIN <=2 S LEVOFLOXACIN <=0.5 S MEROPENEM <=1 S PIPERACILLIN/TAZOBACTAM <=8 S RUN DATE: 11/08/20 [facility] *LIVE* PAGE 2 RUN TIME: 1135 Specimen Inquiry SPEC: [id number] PATIENT: XAVI LEWIS [id number] (Continued) Procedure Result CONTINUED ON NEXT PAGE RUN DATE: 11/08/20 [facility] *LIVE* PAGE 3 RUN TIME: 1135 Specimen Inquiry SPEC: [id number] PATIENT: XAVI LEWIS [id number] (Continued) Procedure Result --- --------- ANTIMICROBIAL SUSCEPTIBILITY Final (continued) TRIMETHOPRIM/SULFAMETHOXAZOLE <=0.5/9.5 S TETRACYCLINE <=4 S TOBRAMYCIN <=2 S Streptomycin Synergy Screen S Gentamicin Synergy Screen S POS SHELLI TYPE 38 ENTEROCOCCUS FAECALIS ANTIBIOTIC RESULT INTERPRETATION AMPICILLIN <=2 S CIPROFLOXACIN <=1 S DAPTOMYCIN 1 S NITROFURANTOIN <=32 S LINEZOLID 2 S LEVOFLOXACIN <=1 S TETRACYCLINE >8 R VANCOMYCIN 1 S Unless otherwise specified, Testing Performed by: [address] [address] For Inquires, the Physician may contact the Microbiology department at [phone] RUN DATE: 11/08/20 [facility] *LIVE* PAGE 1 RUN TIME: 900 Specimen Inquiry PATIENT: XAVI LEWIS ACCT: [id number] LOC: [address] [place] [address] U: [id number] AGE/SX: 75/M ROOM: [facility] RE11/04/[address]: ROXANE RENTERIA MD : 1945 BED: 1 DIS: STATUS: ADM IN TLOC: SPEC #: [id number] MORALES: 11/04/20 STATUS: COMP REQ #: [id number] RECD: 11/04/[address] [facility] [address]: SALLY BARRETT DO SOURCE: BLOOD ENTR: 11/05/[address]: DICKSON WATT [facility]: ORDERED: BLD CULT - LC Procedure Result BLOOD CULTURE LC Final Final GRAM NEGATIVE RODS FINAL ID= [ESCHERICHIA COLI] GRAM POSITIVE COCCI FINAL ID= [ENTEROCOCCUS FAECALIS] ESCHERICHIA COLI ENTEROCOCCUS FAECALIS ANTIMICROBIAL SUSCEPTIBILITY Final Comment Comment NEG SHELLI 56 ESCHERICHIA COLI ANTIBIOTIC RESULT INTERPRETATION AMPICILLIN/SULBACTAM >16/8 R AMIKACIN <=16 S AMPICILLIN >16 R AMOXICILLIN/K CLAVULANATE 16/8 I AZTREONAM <=4 S CEFTRIAXONE <=1 S CEFTAZIDIME <=1 S CEFOTAXIME <=2 S CEFOXITIN <=8 S CEFAZOLIN >16 R CIPROFLOXACIN <=0.25 S CEFEPIME <=2 S CEFUROXIME <=4 S CEFTAZIDIME/AVIBACTAM <=4 S ERTAPENEM <=0.5 S GENTAMICIN <=2 S LEVOFLOXACIN <=0.5 S MEROPENEM <=1 S PIPERACILLIN/TAZOBACTAM 32 I TRIMETHOPRIM/SULFAMETHOXAZOLE <=0.5/9.5 S TETRACYCLINE <=4 S TOBRAMYCIN <=2 S Streptomycin Synergy Screen S Gentamicin Synergy Screen S POS SHELLI TYPE 38 ENTEROCOCCUS FAECALIS RUN DATE: 11/08/20 [facility] *LIVE* PAGE 2 RUN TIME: 900 Specimen Inquiry -------- ---- SPEC: [id number] PATIENT: XAVI LEWIS [id number] (Continued) Procedure Result CONTINUED ON NEXT PAGE RUN DATE: 11/08/20 [facility] *LIVE* PAGE 3 RUN TIME: 0901 Specimen Inquiry SPEC: [id number] PATIENT: XAVI LEWIS [id number] (Continued) Procedure Result ANTIMICROBIAL SUSCEPTIBILITY Final (continued) ANTIBIOTIC RESULT INTERPRETATION AMPICILLIN <=2 S DAPTOMYCIN 1 S LINEZOLID 2 S VANCOMYCIN 1 S Unless otherwise specified, Testing Performed by: [address] [address] For Inquires, the Physician may contact the Microbiology department at [phone] Objective: Assessment: 1. Sepsis, 2. Gram-negative and gram-positive bacteremia poa.source E. coli bacteremia and enterococcus 3. E. coli and enterococcus fecalis pyelonephritis 4. Leukocytosis. 5. Lactic acidosis. 6. Anemia. 7. Hematuria. 8. Dementia. 9. History of urinary retention with chronic indwelling Harris. History of recurrent UTI, 10. Atrial fibrillation. CT abdomen and pelvis November 05 Impression: 1. Perinephric and perivesicular fat stranding consistent with provided history of urinary tract infection. 2. Segmental wall thickening and adjacent fat stranding of a loop of small bowel in the midabdomen concerning for enteritis. 3. No intra-abdominal abscess identified. Plan: Plan of Care 1. Continue Ceftriaxone and Daptomycin 2. pt has failed swallow evaluation 3. Follow-up repeat blood cultures 11/06 negative so far 4. Follow up labs and cultures. 5. Maintain aspiration precaution. 6. Change Harris if not done already. 7. Continue supportive care Discussed with the nursing staff. LILIYA BARBER MD Nov 11, 2020 09:59
--- NOTE | 2020-11-11 10:09 | PDOC ---
Date of Service: DATE: 11/11/20 TIME: 10:06 Subjective: Subjective: Makes eye contact, shakes head no when asked about pain, does not verbalize. Guard present. Objective: Objective: No GI concerns per nurse. Vital Signs: Vital Signs Date Time Temp Pulse Resp B/P (MAP) Pulse Ox O2 Delivery O2 Flow Rate FiO2 11/11/20 07:00 97.2 62 16 113/58 (76) 95 Room Air 97.2 Labs: BLOOD CULTURE Preliminary NO GROWTH AFTER 4 DAYS PE: GEN: NAD LUNGS: CTAB HEART: RRR ABD: soft, non-distended NEURO/PSYCH: awake, confused A/P: Bacteremia/UTI Dysphagia REGGIE/ACD H/o A Fib, dementia COVID negative -- Continue same per GI. Justicifation of Admission Dx: Justifications for Admission: Justification of Admission Dx: Yes Sepsis: Bacteremia BOY KANG Nov 11, 2020 10:09
[2020-11-11 11:00] VITALS: BP 119/80
--- NOTE | 2020-11-11 12:37 | PDOC ---
[employer] PROGRESS NOTE Date of Service DOS: DATE: 11/11/20 TIME: 12:36 Chief Complaint Chief Complaint Assessment/Plan Assessment/Plan Urosepsis Acute cystitis Chronic indwelling Corado Hematuria secondary to chronic indwelling Corado Normocytic anemia Atrial fibrillation Dementia Severe malnutrition Segmental wall thickening and adjacent fat stranding of a loop of small bowel in the midabdomen concerning for enteritis. Plan: continuous IV fluids Corado catheter was changed in the ED Provide pain medications N.p.o., patient failed multiple speech evaluations. May need PEG tube --> MPOA contacted today and agreed to proceed with procedure home medications we can once identified PPX - SCDs FULL CODE Dispo - inpatient for above Discussed with patient but did not name surrogate decision-maker Continue Rocephin and daptomycin. d/w RN Justifications for Admission Justifications for Admission Other Justification History of Present Illness History of Present Illness Identification/Chief Complaint Chief Complaint Blood in urine Source Source: Chart review History of Present Illness History of Present Illness Patient 75-year-old male with past medical history dementia, chronic indwelling Corado catheter, who [facility] from [facility] due to blood found in his Corado catheter. His Corado was recently changed at his correctional facility, he was sent to the ED due to continued bleeding. He was supposed to follow-up at [facility] for urology, [facility] because his blood pressure was low, 84/40 mmHg. Upon arrival in the ED he was tachycardic, afebrile, we did require 2 L nasal cannula due to some hypoxia. Labs on admission showed WBC 13.8, hemoglobin 8.6, hematocrit 26.5, MCV 88, platelets 225, lactic acid 2.1, albumin 2.0. His rapid COVID-19 was negative. His urinalysis showed RBCs TNTC, WBC >40, urine bacteria moderate, further UA results were not performed likely due to gross hematuria. He has been vaccinated against COVID-19. He received Rocephin 1 g and IV fluids. Will admit patient for further medical management. Medical Problems: (1) Person under investigation for COVID-19 Status: Acute (2) Sepsis Status: Acute (3) UTI (urinary tract infection) Status: Acute 11-07 URINE CULTURE Preliminary Preliminary GREATER THAN 100,000 CFU/ML [ESCHERICHIA COLI] on 11/06/20 at 0909 GREATER THAN 100,000 CFU/ML [ENTEROCOCCUS FAECALIS] SEPSIS WITH BACTEREMIA Urosepsis Acute cystitis Chronic indwelling Corado Hematuria secondary to chronic indwelling Corado Normocytic anemia Atrial fibrillation Dementia Severe malnutrition Segmental wall thickening and adjacent fat stranding of a loop of small bowel in the midabdomen concerning for enteritis. continuous IV fluids Corado catheter was changed in the ED PRN pain medications home medications we can once identified FEN - Cardiac diet PPX - SCDs FULL CODE Dispo - inpatient for above Discussed with patient but did not name surrogate decision-maker CT abdomen and pelvis. REVIEWED REPEAT BLOOD CULTURES CONSULT GI RE ABNORMAL CT cefepimE CONT daptomycin. d/w RN 11-08 URINE CULTURE Preliminary Preliminary GREATER THAN 100,000 CFU/ML [ESCHERICHIA COLI] on 11/06/20 at 0909 GREATER THAN 100,000 CFU/ML [ENTEROCOCCUS FAECALIS] SEPSIS WITH BACTEREMIA Urosepsis Acute cystitis Chronic indwelling Corado Hematuria secondary to chronic indwelling Corado Normocytic anemia Atrial fibrillation Dementia Severe malnutrition Segmental wall thickening and adjacent fat stranding of a loop of small bowel in the midabdomen concerning for enteritis. continuous IV fluids Corado catheter was changed in the ED PRN pain medications home medications we can once identified FEN - Cardiac diet PPX - SCDs FULL CODE Dispo - inpatient for above Discussed with patient but did not name surrogate decision-maker CT abdomen and pelvis. REVIEWED REPEAT BLOOD CULTURES CONSULT GI RE ABNORMAL CT d/c cefepimE CONT daptomycin. , restart rocephin 2 gm iv q 24 hrs d/w RN 11/09/20 Patient seen and examined at bedside. No major events or changes overnight. Continue antibiotics per ID. Change corado. 11/10 No major events or changes overnight. Patient seen and examined at bedside. Continue antibiotics. Discussed with patient's correctional facility certified ophthalmic medical technician today, they were able to provide a possible phone number for a named Manasa. Will attempt to contact her. Keep n.p.o. May need PEG tube. Plan discussed bedside RN 11/11 Spoke with patient's this morning regarding plan of care and findings. She would like to proceed with PEG tube placement. She is spoken this over with her son. Otherwise no major changes. Continue antibiotics. Out of bed as tolerated. Plan of care discussed with bedside RN. Vitals/I&O Vitals/I&O: Vital Signs Date Time Temp Pulse Resp B/P (MAP) Pulse Ox O2 Delivery O2 Flow Rate FiO2 11/11/20 12:00 51 119/80 11/11/20 11:00 97.8 16 94 Room Air 97.8 I & O 11/10/20 11/10/20 11/11/20 15:00 23:00 07:00 Intake Total 0 ml 0 ml 0 ml Output Total 1600 ml 1150 ml Balance 0 ml -1600 ml -1150 ml Physical Exam Physical Exam: GENERAL: dosing Does not answer any questions. appears comfortable HEENT: Normocephalic, atraumatic. Anicteric. Poor dentition. Oral mucosa dry. NECK: Supple. No JVD. Right IJ clean. LUNGS: Decreased breath sounds at the base no accessory muscle use HEART: S1, S2. No murmurs. ABDOMEN: Soft, nontender, nondistended. GENITOURINARY: Corado in place. EXTREMITIES: No edema, no cyanosis. DERMATOLOGIC: Warm, dry. No generalized rash. NEUROLOGIC: Alert awake does not answer any questions PSYCHIATRIC: Calm General: Cooperative, No acute distress, Other (nonverbal) Heart: Regular rate, Normal S1 Lungs: Clear Abdomen: Soft, No tenderness Extremities: No cyanosis, No edema Skin: No breakdown, No significant lesion Assessment and Plan Assessmemt and Plan Problems Medical Problems: (1) Person under investigation for COVID-19 Status: Acute (2) Sepsis Status: Acute (3) UTI (urinary tract infection) Status: Acute Comment Review of Relevant I have reviewed the following items jose cruz (where applicable) has been applied. Justifications for Admission Other Justification RACIEL FREITAS MD Nov 11, 2020 12:37
[2020-11-11] MEDS: DAPTOmycin (GENERIC) IVPB 410 MG in IV NORMAL SALINE 50ML 50 ML IV SCH (14:49)
[2020-11-11 15:30] VITALS: BP 129/66
[2020-11-11 19:16] VITALS: BP 119/67
[2020-11-11 23:07] VITALS: BP 125/63
[2020-11-12] MEDS: METOPROLOL IV PUSH 5 MG/5 ML VIAL. IVP SCH ×5 (00:08→23:53)
[2020-11-12 02:39] VITALS: BP 115/69
[2020-11-12 07:00] VITALS: BP 122/76
[2020-11-12] MEDS: cefTRIAXone IV Push 2 GM VIAL. IVP SCH (08:04)
[2020-11-12] MEDS: AA 4.25 %/CALCIUM/LYTES/D5W 1,000 ML IV SCH ×3 (08:07→20:45)
[2020-11-12] MEDS: AMIODARONE HCL 200 MG TABLET. PO SCH (09:00)
--- NOTE | 2020-11-12 10:47 | PDOC ---
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 appears comfortable HEENT: Normocephalic, atraumatic. Anicteric. Poor dentition. Oral mucosa dry. NECK: Supple. No JVD. Right IJ clean. LUNGS: Decreased breath sounds at the base no accessory muscle use HEART: S1, S2. No murmurs. ABDOMEN: Soft, nontender, nondistended. GENITOURINARY: Harris in place. EXTREMITIES: No edema, no cyanosis. DERMATOLOGIC: Warm, dry. No generalized rash. NEUROLOGIC: Alert awake does not answer any questions PSYCHIATRIC: Calm Medications: Inpatient Meds: Medications reviewed. Labs: Lab Laboratory Tests Test 11/12/20 08:17 Glucose (Fingerstick) 101 mg/dL (70-99) Micro RUN DATE: 11/08/20 [facility] LAB *LIVE* PAGE 1 RUN TIME: 3245 Specimen Inquiry PATIENT: XAVI LEWIS ACCT: [id number] LOC: [address] [place] [address] U: [id number] AGE/SX: 75/M ROOM: 675 RE11/04/[address]: ROXANE RENTERIA MD : 1945 BED: 1 DIS: STATUS: ADM IN TLOC: SPEC #: [id number] MORALES: 11/04/20 STATUS: COMP REQ #: [id number] RECD: 11/04/[address]: SALLY BARRETT DO SOURCE: VOID ENTR: 11/04/[address]: DICKSON WATT SPDESC: ORDERED: URINE CULTURE Procedure Result URINE CULTURE Final Final GREATER THAN 100,000 CFU/ML [ESCHERICHIA COLI] on 11/06/20 at 0909 GREATER THAN 100,000 CFU/ML [ENTEROCOCCUS FAECALIS] on 11/07/20 at 0757 Testing Performed by: [address] [address] For Inquires, the Physician may contact the Microbiology department at [phone] ESCHERICHIA COLI ENTEROCOCCUS FAECALIS ANTIMICROBIAL SUSCEPTIBILITY Final Comment Comment NEG SHELLI 56 ESCHERICHIA COLI ANTIBIOTIC RESULT INTERPRETATION AMPICILLIN/SULBACTAM >16/8 R AMIKACIN <=16 S AMPICILLIN >16 R AMOXICILLIN/K CLAVULANATE 16/8 I AZTREONAM <=4 S CEFTRIAXONE <=1 S CEFTAZIDIME <=1 S CEFOTAXIME <=2 S CEFOXITIN <=8 S CEFAZOLIN 8 S CIPROFLOXACIN <=0.25 S CEFEPIME <=2 S CEFUROXIME <=4 S CEFTAZIDIME/AVIBACTAM <=4 S ERTAPENEM <=0.5 S NITROFURANTOIN <=32 S GENTAMICIN <=2 S LEVOFLOXACIN <=0.5 S MEROPENEM <=1 S PIPERACILLIN/TAZOBACTAM <=8 S RUN DATE: 11/08/20 [facility] *LIVE* PAGE 2 RUN TIME: 1135 Specimen Inquiry SPEC: [id number] PATIENT: XAVI LEWIS [id number] (Continued) Procedure Result CONTINUED ON NEXT PAGE RUN DATE: 11/08/20 [facility] LAB *LIVE* PAGE 3 RUN TIME: 1135 Specimen Inquiry SPEC: [id number] PATIENT: XAVI LEWIS [id number] (Rafael ng) Procedure Result ANTIMICROBIAL SUSCEPTIBILITY Final (continued) TRIMETHOPRIM/SULFAMETHOXAZOLE <=0.5/9.5 S TETRACYCLINE <=4 S TOBRAMYCIN <=2 S Streptomycin Synergy Screen S Gentamicin Synergy Screen S POS SHELLI TYPE 38 ENTEROCOCCUS FAECALIS ANTIBIOTIC RESULT INTERPRETATION AMPICILLIN <=2 S CIPROFLOXACIN <=1 S DAPTOMYCIN 1 S NITROFURANTOIN <=32 S LINEZOLID 2 S LEVOFLOXACIN <=1 S TETRACYCLINE >8 R VANCOMYCIN 1 S Unless otherwise specified, Testing Performed by: [address] [address] For Inquires, the Physician may contact the Microbiology department at [phone] RUN DATE: 11/08/20 [facility] LAB *LIVE* PAGE 1 RUN TIME: 900 Specimen Inquiry PATIENT: XAVI LEWIS ACCT: [id number] LOC: [address] [place] [address] U: [id number] AGE/SX: 75/M ROOM: [facility] RE11/04/[address]: ROXANE RENTERIA MD : 1945 BED: 1 DIS: STATUS: ADM IN TLOC: -------- ---- SPEC #: [id number] MORALES: 11/04/20 STATUS: COMP REQ #: [id number] RECD: 11/04/[address] [facility] [address]: SALLY BARRETT DO SOURCE: BLOOD ENTR: 11/05/20-[address] [place] [address]: DICKSON WATT SPDESC: ORDERED: BLD CULT - LC Procedure Result BLOOD CULTURE LC Final Final GRAM NEGATIVE RODS FINAL ID= [ESCHERICHIA COLI] GRAM POSITIVE COCCI FINAL ID= [ENTEROCOCCUS FAECALIS] ESCHERICHIA COLI ENTEROCOCCUS FAECALIS ANTIMICROBIAL SUSCEPTIBILITY Final Comment Comment NEG SHELLI 56 ESCHERICHIA COLI ANTIBIOTIC RESULT INTERPRETATION AMPICILLIN/SULBACTAM >16/8 R AMIKACIN <=16 S AMPICILLIN >16 R AMOXICILLIN/K CLAVULANATE 16/8 I AZTREONAM <=4 S CEFTRIAXONE <=1 S CEFTAZIDIME <=1 S CEFOTAXIME <=2 S CEFOXITIN <=8 S CEFAZOLIN >16 R CIPROFLOXACIN <=0.25 S CEFEPIME <=2 S CEFUROXIME <=4 S CEFTAZIDIME/AVIBACTAM <=4 S ERTAPENEM <=0.5 S GENTAMICIN <=2 S LEVOFLOXACIN <=0.5 S MEROPENEM <=1 S PIPERACILLIN/TAZOBACTAM 32 I TRIMETHOPRIM/SULFAMETHOXAZOLE <=0.5/9.5 S TETRACYCLINE <=4 S TOBRAMYCIN <=2 S Streptomycin Synergy Screen S Gentamicin Synergy Screen S POS SHELLI TYPE 38 ENTEROCOCCUS FAECALIS RUN DATE: 11/08/20 [facility] LAB *LIVE* PAGE 2 RUN TIME: 900 Specimen Inquiry SPEC: [id number] PATIENT: XAVI LEWIS [id number] (Continued) Procedure Result CONTINUED ON NEXT PAGE RUN DATE: 11/08/20 [facility] *LIVE* PAGE 3 RUN TIME: 900 Specimen Inquiry SPEC: [id number] PATIENT: XAVI LEWIS [id number] (Continued) Procedure Result ANTIMICROBIAL SUSCEPTIBILITY Final (continued) ANTIBIOTIC RESULT INTERPRETATION AMPICILLIN <=2 S DAPTOMYCIN 1 S LINEZOLID 2 S VANCOMYCIN 1 S Unless otherwise specified, Testing Performed by: [address] [address] For Inquires, the Physician may contact the Microbiology department at [phone] Objective: Assessment: 1. Sepsis, 2. Gram-negative and gram-positive bacteremia poa.source E. coli bacteremia and enterococcus 3. E. coli and enterococcus fecalis pyelonephritis 4. Leukocytosis. 5. Lactic acidosis. 6. Anemia. 7. Hematuria. 8. Dementia. 9. History of urinary retention with chronic indwelling Harris. History of recurrent UTI, 10. Atrial fibrillation. CT abdomen and pelvis November 05 Impression: 1. Perinephric and perivesicular fat stranding consistent with provided history of urinary tract infection. 2. Segmental wall thickening and adjacent fat stranding of a loop of small bowel in the midabdomen concerning for enteritis. 3. No intra-abdominal abscess identified. Plan: Plan of Care 1. Continue Ceftriaxone and Daptomycin 2. pt has failed swallow evaluation 3. Follow-up repeat blood cultures 11/06 negative so far 4. Follow up labs and cultures. 5. Maintain aspiration precaution. 6. Change Harris if not done already. 7. Continue supportive care Discussed with the nursing staff. LILIYA BARBER MD Nov 12, 2020 10:47
[2020-11-12 10:54] VITALS: BP 135/62
--- NOTE | 2020-11-12 11:05 | PDOC ---
Date of Service: DATE: 11/12/20 TIME: 11:01 Subjective: Subjective: Denies pain. Says "so far so good." Guard present. Objective: Objective: D/w case management who has spoken w/ pt's /DPOA - if no improvement in swallow, would like PEG placed. 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 Case management mentions possibility of videoswallow. I was provided w/ family contact info - available to discuss PEG placement further if needed. Check INR. Justicifation of Admission Dx: Justifications for Admission: Justification of Admission Dx: Yes Sepsis: Bacteremia BOY KANG Nov 12, 2020 11:05
[2020-11-12 12:30] LABS: PROTHROMBIN TIME PATIENT 13.9 SEC (11.7-14.0)
[2020-11-12] MEDS: DAPTOmycin (GENERIC) IVPB 410 MG in IV NORMAL SALINE 50ML 50 ML IV SCH (13:22)
[2020-11-12 14:34] VITALS: BP 144/67
--- NOTE | 2020-11-12 16:02 | PDOC ---
[employer] PROGRESS NOTE Date of Service DOS: DATE: 11/12/20 TIME: 16:00 Chief Complaint Chief Complaint Assessment/Plan Assessment/Plan Urosepsis Acute cystitis Chronic indwelling Corado Hematuria secondary to chronic indwelling Corado Normocytic anemia Atrial fibrillation Dementia Severe malnutrition Segmental wall thickening and adjacent fat stranding of a loop of small bowel in the midabdomen concerning for enteritis. Plan: continuous IV fluids Corado catheter was changed in the ED Provide pain medications N.p.o., patient failed multiple speech evaluations. May need PEG tube --> MPOA contacted and agreed to proceed with procedure if needed home medications we can once identified PPX - SCDs FULL CODE Dispo - inpatient for above Discussed with patient but did not name surrogate decision-maker Continue Rocephin and daptomycin. d/w RN Justifications for Admission Justifications for Admission Other Justification History of Present Illness History of Present Illness Identification/Chief Complaint Chief Complaint Blood in urine Source Source: Chart review History of Present Illness History of Present Illness Patient 75-year-old male with past medical history dementia, chronic indwelling Corado catheter, who [facility] from [facility] due to blood found in his Corado catheter. His Corado was recently changed at his correctional facility, he was sent to the ED due to continued bleeding. He was supposed to follow-up at [facility] for urology, however they never returned to [facility] because his blood pressure was low, 84/40 mmHg. Upon arrival in the ED he was tachycardic, afebrile, we did require 2 L nasal cannula due to some hypoxia. Labs on admission showed WBC 13.8, hemoglobin 8.6, hematocrit 26.5, MCV 88, platelets 225, lactic acid 2.1, albumin 2.0. His rapid COVID-19 was negative. His urinalysis showed RBCs TNTC, WBC >40, urine bacteria moderate, further UA results were not performed likely due to gross hematuria. He has been vaccinated against COVID-19. He received Rocephin 1 g and IV fluids. Will admit patient for further medical management. Medical Problems: (1) Person under investigation for COVID-19 Status: Acute (2) Sepsis Status: Acute (3) UTI (urinary tract infection) Status: Acute 11-07 URINE CULTURE Preliminary Preliminary GREATER THAN 100,000 CFU/ML [ESCHERICHIA COLI] on 11/06/20 at 0909 GREATER THAN 100,000 CFU/ML [ENTEROCOCCUS FAECALIS] SEPSIS WITH BACTEREMIA Urosepsis Acute cystitis Chronic indwelling Corado Hematuria secondary to chronic indwelling Corado Normocytic anemia Atrial fibrillation Dementia Severe malnutrition Segmental wall thickening and adjacent fat stranding of a loop of small bowel in the midabdomen concerning for enteritis. continuous IV fluids Corado catheter was changed in the ED PRN pain medications home medications we can once identified FEN - Cardiac diet PPX - SCDs FULL CODE Dispo - inpatient for above Discussed with patient but did not name surrogate decision-maker CT abdomen and pelvis. REVIEWED REPEAT BLOOD CULTURES CONSULT GI RE ABNORMAL CT cefepimE CONT daptomycin. d/w RN 11-08 URINE CULTURE Preliminary Preliminary GREATER THAN 100,000 CFU/ML [ESCHERICHIA COLI] on 11/06/20 at 0909 GREATER THAN 100,000 CFU/ML [ENTEROCOCCUS FAECALIS] SEPSIS WITH BACTEREMIA Urosepsis Acute cystitis Chronic indwelling Corado Hematuria secondary to chronic indwelling Corado Normocytic anemia Atrial fibrillation Dementia Severe malnutrition Segmental wall thickening and adjacent fat stranding of a loop of small bowel in the midabdomen concerning for enteritis. continuous IV fluids Corado catheter was changed in the ED PRN pain medications home medications we can once identified FEN - Cardiac diet PPX - SCDs FULL CODE Dispo - inpatient for above Discussed with patient but did not name surrogate decision-maker CT abdomen and pelvis. REVIEWED REPEAT BLOOD CULTURES CONSULT GI RE ABNORMAL CT d/c cefepimE CONT daptomycin. , restart rocephin 2 gm iv q 24 hrs d/w RN 11/09/20 Patient seen and examined at bedside. No major events or changes overnight. Continue antibiotics per ID. Change corado. 11/10 No major events or changes overnight. Patient seen and examined at bedside. Continue antibiotics. Discussed with patient's correctional facility medical director/head team physician today, they were able to provide a possible phone number for a named Manasa. Will attempt to contact her. Keep n.p.o. May need PEG tube. Plan discussed bedside RN 11/11 Spoke with patient's this morning regarding plan of care and findings. She would like to proceed with PEG tube placement. She is spoken this over with her son. Otherwise no major changes. Continue antibiotics. Out of bed as tolerated. Plan of care discussed with bedside RN. 11/12 Patient evaluated at bedside, no major clinical changes. Patient again evaluated by speech today, hard to tell exactly how well his swallow function is doing. PEG tube still planned if needed. Daily swallow evaluation. Will resume diet if approved by speech team. Vitals/I&O Vitals/I&O: Vital Signs Date Time Temp Pulse Resp B/P (MAP) Pulse Ox O2 Delivery O2 Flow Rate FiO2 11/12/20 14:34 97.2 107 18 144/67 (92) 96 Room Air 97.2 11/12/20 08:00 2.0 I & O 11/11/20 11/11/20 11/12/20 15:00 23:00 07:00 Intake Total 0 ml 0 ml 0 ml Output Total 1300 ml 800 ml Balance 0 ml -1300 ml -800 ml Physical Exam Physical Exam: GENERAL: dosing Does not answer any questions. appears comfortable HEENT: Normocephalic, atraumatic. Anicteric. Poor dentition. Oral mucosa dry. NECK: Supple. No JVD. Right IJ clean. LUNGS: Decreased breath sounds at the base no accessory muscle use HEART: S1, S2. No murmurs. ABDOMEN: Soft, nontender, nondistended. GENITOURINARY: Corado in place. EXTREMITIES: No edema, no cyanosis. DERMATOLOGIC: Warm, dry. No generalized rash. NEUROLOGIC: Alert awake does not answer any questions PSYCHIATRIC: Calm General: Cooperative, No acute distress, Other (nonverbal) Heart: Regular rate, Normal S1 Lungs: Clear Abdomen: Soft, No tenderness Extremities: No cyanosis, No edema Skin: No breakdown, No significant lesion Labs Labs: Laboratory Tests Test 11/12/20 08:17 11/12/20 11:46 Glucose (Fingerstick) 101 mg/dL (70-99) Prothrombin Time 13.9 SEC (11.7-14.0) Prothromb Time International Ratio 1.1 (0.8-1.1) Assessment and Plan Assessmemt and Plan Problems Medical Problems: (1) Person under investigation for COVID-19 Status: Acute (2) Sepsis Status: Acute (3) UTI (urinary tract infection) Status: Acute Comment Review of Relevant I have reviewed the following items jose cruz (where applicable) has been applied. Justifications for Admission Other Justification RACIEL FREITAS MD Nov 12, 2020 16:02
[2020-11-12 19:20] VITALS: BP 145/60
[2020-11-12 22:45] VITALS: BP 150/58
[2020-11-13 03:00] VITALS: BP 118/51
[2020-11-13] MEDS: METOPROLOL IV PUSH 5 MG/5 ML VIAL. IVP SCH ×4 (06:13→23:10)
[2020-11-13 07:43] LABS: CALCIUM 9.5 mg/dL (8.5-10.1); CREATININE 0.8 mg/dL (0.7-1.3); GFR 94.5; POTASSIUM 4.5 mmol/L (3.5-5.1)
[2020-11-13 07:55] VITALS: BP 136/69
[2020-11-13] MEDS: AA 4.25 %/CALCIUM/LYTES/D5W 1,000 ML IV SCH ×2 (08:55→21:17)
[2020-11-13] MEDS: cefTRIAXone IV Push 2 GM VIAL. IVP SCH (08:55)
[2020-11-13] MEDS: AMIODARONE HCL 200 MG TABLET. PO SCH (09:00)
--- NOTE | 2020-11-13 09:38 | PDOC ---
Date of Service: DATE: 11/13/20 TIME: 09:33 Subjective: Subjective: Guard asks for me to keep the IV from beeping. Pt denies pain. Says he's doing "okay so far." Doesn't know where he is. Objective: Objective: BUNDLER 11/12 * Pt received Ativan yesterday evening. Pt remained awake and still throughout session, but was not verbally responsive. The continuous rolling from one side of his bed to the other and scooting himself down the bed after being repositioned yesterday were absent today. Pt remains unable to follow most verbal instructions and unable/willing to produce phonation upon request this date, similar to original BSE date. Noted immediate reactive low intensity wet sounding cough post 100% of PO trials w/ honey thick liquid and puree this date. Coughing became prolonged and difficult to clear at times. IMPRESSIONS: Variable mild-moderate oropharyngeal dysphagia. Over the course of past 4 days, pt has appeared to demo a pattern of increased dysphagia w/ overt s/s aspiration during the days following receiving Ativan the prior night. On the days when pt did not receive Ativan, he is severely restless and at times demo's agitation and noncompliance w/ eval. Etiology of dysphagia unclear, acute metabolic encephalopathy superimposed on prior dementia vs. progression of baseline dementia. Duration of need for NPO undetermined. D/w all above w/ Dr. Ortiz who plans to have further di scussion w/ [facility] authorities and pt's fmly re: goals of care. RECOMMENDATIONS: NPO w/ aggressive oral care. Will continue BUNDLER f/u per POC, if it remains c/w goals of care. Videoswallow not currently indicated given pt's limited ability to actively participate and follow verbal instructions. Reviewed primary note: May need PEG tube --> MPOA contacted and agreed to proceed with procedure if needed Vital Signs: Vital Signs Date Time Temp Pulse Resp B/P (MAP) Pulse Ox O2 Delivery O2 Flow Rate FiO2 11/13/20 07:55 98.0 85 16 136/69 (91) 97 Room Air 98.0 11/12/20 08:00 2.0 Labs: Laboratory Tests Test 11/12/20 11:46 11/13/20 06:40 Prothrombin Time 13.9 SEC Prothromb Time International Ratio 1.1 Sodium Level 138 mmol/L Potassium Level 4.5 mmol/L Chloride Level 101 mmol/L Carbon Dioxide Level 29 mmol/L Anion Gap 8 Blood Urea Nitrogen 20 mg/dL Creatinine 0.8 mg/dL Estimated GFR (Cockcroft-Gault) 94.5 Glucose Level 92 mg/dL Calcium Level 9.5 mg/dL Creatine Kinase 107 U/L PE: GEN: NAD LUNGS: CTAB HEART: RRR ABD: S/ND/NT NEURO/PSYCH: A & O 3 A/P: Bacteremia/UTI Dysphagia, dementia REGGIE/ACD, h/o A Fib COVID negative -- INR normal. Standing by. Justicifation of Admission Dx: Justifications for Admission: Justification of Admission Dx: Yes Sepsis: Bacteremia BOY KANG Nov 13, 2020 09:38
--- NOTE | 2020-11-13 10:25 | PDOC ---
Infectious Disease Note Subjective: Subjective Pt awake does not answer all questions N.p.o. 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 appears comfortable HEENT: Normocephalic, atraumatic. Anicteric. Poor dentition. Oral mucosa dry. NECK: Supple. No JVD. Right IJ clean. LUNGS: Decreased breath sounds at the base no accessory muscle use HEART: S1, S2. No murmurs. ABDOMEN: Soft, nontender, nondistended. GENITOURINARY: Harris in place. EXTREMITIES: No edema, no cyanosis. DERMATOLOGIC: Warm, dry. No generalized rash. NEUROLOGIC: Alert awake does not answer any questions PSYCHIATRIC: Calm Medications: Inpatient Meds: Medications reviewed. Labs: Lab Laboratory Tests Test 11/12/20 11:46 11/13/20 06:40 Prothrombin Time 13.9 SEC (11.7-14.0) Prothromb Time International Ratio 1.1 (0.8-1.1) Sodium Level 138 mmol/L (136-145) Potassium Level 4.5 mmol/L (3.5-5.1) Chloride Level 101 mmol/L (98-107) Carbon Dioxide Level 29 mmol/L (21-32) Anion Gap 8 (6-14) Blood Urea Nitrogen 20 mg/dL (8-26) Creatinine 0.8 mg/dL (0.7-1.3) Estimated GFR (Cockcroft-Gault) 94.5 Glucose Level 92 mg/dL (70-99) Calcium Level 9.5 mg/dL (8.5-10.1) Creatine Kinase 107 U/L (39-308) Micro RUN DATE: 11/08/20 [facility] LAB *LIVE* PAGE 1 RUN TIME: 1135 Specimen Inquiry --- --------- PATIENT: XAVI LEWIS ACCT: [id number] LOC: [address] [place] [address] U: [id number] AGE/SX: 75/M ROOM: [facility] RE11/04/[address]: ROXANE RENTERIA MD : 1945 BED: 1 DIS: STATUS: ADM IN TLOC: SPEC #: [id number] MORALES: 11/04/20 STATUS: COMP REQ #: [id number] RECD: 11/04/[address]: SALLY BARRETT DO SOURCE: VOID ENTR: 11/04/[address]: DICKSON WATT [facility]: ORDERED: URINE CULTURE Procedure Result URINE CULTURE Final Final GREATER THAN 100,000 CFU/ML [ESCHERICHIA COLI] on 11/06/20 at 0909 GREATER THAN 100,000 CFU/ML [ENTEROCOCCUS FAECALIS] on 11/07/20 at 0757 Testing Performed by: [address] [address] For Inquires, the Physician may contact the Microbiology department at [phone] ESCHERICHIA COLI ENTEROCOCCUS FAECALIS ANTIMICROBIAL SUSCEPTIBILITY Final Comment Comment NEG SHELLI 56 ESCHERICHIA COLI ANTIBIOTIC RESULT INTERPRETATION AMPICILLIN/SULBACTAM >16/8 R AMIKACIN <=16 S AMPICILLIN >16 R AMOXICILLIN/K CLAVULANATE 16/8 I AZTREONAM <=4 S CEFTRIAXONE <=1 S CEFTAZIDIME <=1 S CEFOTAXIME <=2 S CEFOXITIN <=8 S CEFAZOLIN 8 S CIPROFLOXACIN <=0.25 S CEFEPIME <=2 S CEFUROXIME <=4 S CEFTAZIDIME/AVIBACTAM <=4 S ERTAPENEM <=0.5 S NITROFURANTOIN <=32 S GENTAMICIN <=2 S LEVOFLOXACIN <=0.5 S MEROPENEM <=1 S PIPERACILLIN/TAZOBACTAM <=8 S RUN DATE: 11/08/20 [facility] LAB *LIVE* PAGE 2 RUN TIME: 1135 Specimen Inquiry SPEC: [id number] PATIENT: XAVI LEWIS [id number] (Continued) Procedure Result CONTINUED ON NEXT PAGE RUN DATE: 11/08/20 [facility] LAB *LIVE* PAGE 3 RUN TIME: 1135 Specimen Inquiry SPEC: [id number] PATIENT: XAVI LEWIS [id number] (Continued) Procedure Result --- --------- ANTIMICROBIAL SUSCEPTIBILITY Final (continued) TRIMETHOPRIM/SULFAMETHOXAZOLE <=0.5/9.5 S TETRACYCLINE <=4 S TOBRAMYCIN <=2 S Streptomycin Synergy Screen S Gentamicin Synergy Screen S POS SHELLI TYPE 38 ENTEROCOCCUS FAECALIS ANTIBIOTIC RESULT INTERPRETATION AMPICILLIN <=2 S CIPROFLOXACIN <=1 S DAPTOMYCIN 1 S NITROFURANTOIN <=32 S LINEZOLID 2 S LEVOFLOXACIN <=1 S TETRACYCLINE >8 R VANCOMYCIN 1 S Unless otherwise specified, Testing Performed by: [facility] [address] [place] [address] For Inquires, the Physician may contact the Microbiology department at [phone] RUN DATE: 11/08/20 [facility] LAB *LIVE* PAGE 1 RUN TIME: 900 Specimen Inquiry PATIENT: XAVI LEWIS Rose ACCT: [id number] LOC: [address] [place] [address] U: [id number] AGE/SX: 75/M ROOM: [facility] RE11/04/[address]: ROXANE RENTERIA MD : 1945 BED: 1 DIS: STATUS: ADM IN TLOC: SPEC #: [id number] MORALES: 11/04/20-1640 STATUS: VIPIN REQ #: [id number] RECD: 11/04/[address]: SALLY BARRETT DO SOURCE: BLOOD ENTR: 11/05/20 [facility] : DICKSON WATT [facility]: ORDERED: BLD CULT - LC Procedure Result BLOOD CULTURE LC Final Final GRAM NEGATIVE RODS FINAL ID= [ESCHERICHIA COLI] GRAM POSITIVE COCCI FINAL ID= [ENTEROCOCCUS FAECALIS] ESCHERICHIA COLI ENTEROCOCCUS FAECALIS ANTIMICROBIAL SUSCEPTIBILITY Final Comment Comment NEG SHELLI 56 ESCHERICHIA COLI ANTIBIOTIC RESULT INTERPRETATION AMPICILLIN/SULBACTAM >16/8 R AMIKACIN <=16 S AMPICILLIN >16 R AMOXICILLIN/K CLAVULANATE 16/8 I AZTREONAM <=4 S CEFTRIAXONE <=1 S CEFTAZIDIME <=1 S CEFOTAXIME <=2 S CEFOXITIN <=8 S CEFAZOLIN >16 R CIPROFLOXACIN <=0.25 S CEFEPIME <=2 S CEFUROXIME <=4 S CEFTAZIDIME/AVIBACTAM <=4 S ERTAPENEM <=0.5 S GENTAMICIN <=2 S LEVOFLOXACIN <=0.5 S MEROPENEM <=1 S PIPERACILLIN/TAZOBACTAM 32 I TRIMETHOPRIM/SULFAMETHOXAZOLE <=0.5/9.5 S TETRACYCLINE <=4 S TOBRAMYCIN <=2 S Streptomycin Synergy Screen S Gentamicin Synergy Screen S POS SHELLI TYPE 38 ENTEROCOCCUS FAECALIS RUN DATE: 11/08/20 [facility] *LIVE* PAGE 2 RUN TIME: 900 Specimen Inquiry -------- ---- SPEC: [id number] PATIENT: XAVI LEWIS [id number] (Continued) Procedure Result CONTINUED ON NEXT PAGE RUN DATE: 11/08/20 [facility] LAB *LIVE* PAGE 3 RUN TIME: 900 Specimen Inquiry SPEC: [id number] PATIENT: DEBBIEXAVI L [id number] (Continued) Procedure Result ANTIMICROBIAL SUSCEPTIBILITY Final (continued) ANTIBIOTIC RESULT INTERPRETATION AMPICILLIN <=2 S DAPTOMYCIN 1 S LINEZOLID 2 S VANCOMYCIN 1 S Unless otherwise specified, Testing Performed by: [facility] [address] [place] [address] For Inquires, the Physician may contact the Microbiology department at [phone] Objective: Assessment: 1. Sepsis, 2. Gram-negative and gram-positive bacteremia poa.source E. coli bacteremia and enterococcus 3. E. coli and enterococcus fecalis pyelonephritis 4. Leukocytosis. 5. Lactic acidosis. 6. Anemia. 7. Hematuria. 8. Dementia. 9. History of urinary retention with chronic indwelling Harris. History of recurrent UTI, 10. Atrial fibrillation. CT abdomen and pelvis November 05 Impression: 1. Perinephric and perivesicular fat stranding consistent with provided history of urinary tract infection. 2. Segmental wall thickening and adjacent fat stranding of a loop of small bowel in the midabdomen concerning for enteritis. 3. No intra-abdominal abscess identified. Plan: Plan of Care 1. Continue Ceftriaxone and Daptomycin 2. pt has failed swallow evaluation 3. Follow-up repeat blood cultures 11/06 negative so far 4. Follow up labs and cultures. 5. Maintain aspiration precaution. 6. Change Harris if not done already. 7. Continue supportive care Discussed with the nursing staff. LILIYA BARBER MD Nov 13, 2020 10:25
[2020-11-13 11:30] VITALS: BP 123/75
--- NOTE | 2020-11-13 11:51 | PDOC ---
[employer] PROGRESS NOTE Date of Service DOS: DATE: 11/13/20 TIME: 11:50 Chief Complaint Chief Complaint Assessment/Plan Assessment/Plan Urosepsis Acute cystitis Chronic indwelling Corado Hematuria secondary to chronic indwelling Corado Normocytic anemia Atrial fibrillation Dementia Severe malnutrition Segmental wall thickening and adjacent fat stranding of a loop of small bowel in the midabdomen concerning for enteritis. Plan: continuous IV fluids Corado catheter was changed in the ED Provide pain medications N.p.o., patient failed multiple speech evaluations. May need PEG tube --> MPOA contacted and agreed to proceed with procedure if needed home medications we can once identified PPX - SCDs FULL CODE Dispo - inpatient for above Discussed with patient but did not name surrogate decision-maker Continue Rocephin and daptomycin. d/w RN Justifications for Admission Justifications for Admission Other Justification History of Present Illness History of Present Illness Identification/Chief Complaint Chief Complaint Blood in urine Source Source: Chart review History of Present Illness History of Present Illness Patient 75-year-old male with past medical history dementia, chronic indwelling Corado catheter, who presents from [facility] due to blood found in his Corado catheter. His Corado was recently changed at his correctional facility, he was sent to the ED due to continued bleeding. He was supposed to follow-up at [facility] for urology, however they never returned to [facility] because his blood pressure was low, 84/40 mmHg. Upon arrival in the ED he was tachycardic, afebrile, we did require 2 L nasal cannula due to some hypoxia. Labs on admission showed WBC 13.8, hemoglobin 8.6, hematocrit 26.5, MCV 88, platelets 225, lactic acid 2.1, albumin 2.0. His rapid COVID-19 was negative. His urinalysis showed RBCs TNTC, WBC >40, urine bacteria moderate, further UA results were not performed likely due to gross hematuria. He has been vaccinated against COVID-19. He received Rocephin 1 g and IV fluids. Will admit patient for further medical management. Medical Problems: (1) Person under investigation for COVID-19 Status: Acute (2) Sepsis Status: Acute (3) UTI (urinary tract infection) Status: Acute 11-07 URINE CULTURE Preliminary Preliminary GREATER THAN 100,000 CFU/ML [ESCHERICHIA COLI] on 11/06/20 at 0909 GREATER THAN 100,000 CFU/ML [ENTEROCOCCUS FAECALIS] SEPSIS WITH BACTEREMIA Urosepsis Acute cystitis Chronic indwelling Corado Hematuria secondary to chronic indwelling Corado Normocytic anemia Atrial fibrillation Dementia Severe malnutrition Segmental wall thickening and adjacent fat stranding of a loop of small bowel in the midabdomen concerning for enteritis. continuous IV fluids Corado catheter was changed in the ED PRN pain medications home medications we can once identified FEN - Cardiac diet PPX - SCDs FULL CODE Dispo - inpatient for above Discussed with patient but did not name surrogate decision-maker CT abdomen and pelvis. REVIEWED REPEAT BLOOD CULTURES CONSULT GI RE ABNORMAL CT cefepimE CONT daptomycin. d/w RN 11-08 URINE CULTURE Preliminary Preliminary GREATER THAN 100,000 CFU/ML [ESCHERICHIA COLI] on 11/06/20 at 0909 GREATER THAN 100,000 CFU/ML [ENTEROCOCCUS FAECALIS] SEPSIS WITH BACTEREMIA Urosepsis Acute cystitis Chronic indwelling Corado Hematuria secondary to chronic indwelling Corado Normocytic anemia Atrial fibrillation Dementia Severe malnutrition Segmental wall thickening and adjacent fat stranding of a loop of small bowel in the midabdomen concerning for enteritis. continuous IV fluids Corado catheter was changed in the ED PRN pain medications home medications we can once identified FEN - Cardiac diet PPX - SCDs FULL CODE Dispo - inpatient for above Discussed with patient but did not name surrogate decision-maker CT abdomen and pelvis. REVIEWED REPEAT BLOOD CULTURES CONSULT GI RE ABNORMAL CT d/c cefepimE CONT daptomycin. , restart rocephin 2 gm iv q 24 hrs d/w RN 11/09/20 Patient seen and examined at bedside. No major events or changes overnight. Continue antibiotics per ID. Change corado. 11/10 No major events or changes overnight. Patient seen and examined at bedside. Continue antibiotics. Discussed with patient's correctional facility center medical director today, they were able to provide a possible phone number for a named Manasa. Will attempt to contact her. Keep n.p.o. May need PEG tube. Plan discussed bedside RN 11/11 Spoke with patient's this morning regarding plan of care and findings. She would like to proceed with PEG tube placement. She is spoken this over with her son. Otherwise no major changes. Continue antibiotics. Out of bed as tolerated. Plan of care discussed with bedside RN. 11/12 Patient evaluated at bedside, no major clinical changes. Patient again evaluated by speech today, hard to tell exactly how well his swallow function is doing. PEG tube still planned if needed. Daily swallow evaluation. Will resume diet if approved by speech team. 11/13 Seen at bedside. No changes clnically. Speech team recommending advancing diet today. Vitals/I&O Vitals/I&O: Vital Signs Date Time Temp Pulse Resp B/P (MAP) Pulse Ox O2 Delivery O2 Flow Rate FiO2 11/13/20 11:30 56 11/13/20 08:00 Room Air 2.0 11/13/20 07:55 98.0 16 136/69 (91) 97 98.0 I & O 11/12/20 11/12/20 11/13/20 15:00 23:00 07:00 Intake Total 0 ml 1010 ml 0 ml Output Total 650 ml 300 ml 1250 ml Balance -650 ml 710 ml -1250 ml Physical Exam Physical Exam: GENERAL: dosing Does not answer any questions. appears comfortable HEENT: Normocephalic, atraumatic. Anicteric. Poor dentition. Oral mucosa dry. NECK: Supple. No JVD. Right IJ clean. LUNGS: Decreased breath sounds at the base no accessory muscle use HEART: S1, S2. No murmurs. ABDOMEN: Soft, nontender, nondistended. GENITOURINARY: Corado in place. EXTREMITIES: No edema, no cyanosis. DERMATOLOGIC: Warm, dry. No generalized rash. NEUROLOGIC: Alert awake does not answer any questions PSYCHIATRIC: Calm General: Cooperative, No acute distress, Other (nonverbal) Heart: Regular rate, Normal S1 Lungs: Clear Abdomen: Soft, No tenderness Extremities: No cyanosis, No edema Skin: No breakdown, No significant lesion Labs Labs: Laboratory Tests Test 11/13/20 06:40 Sodium Level 138 mmol/L (136-145) Potassium Level 4.5 mmol/L (3.5-5.1) Chloride Level 101 mmol/L (98-107) Carbon Dioxide Level 29 mmol/L (21-32) Anion Gap 8 (6-14) Blood Urea Nitrogen 20 mg/dL (8-26) Creatinine 0.8 mg/dL (0.7-1.3) Estimated GFR (Cockcroft-Gault) 94.5 Glucose Level 92 mg/dL (70-99) Calcium Level 9.5 mg/dL (8.5-10.1) Creatine Kinase 107 U/L (39-308) Assessment and Plan Assessmemt and Plan Problems Medical Problems: (1) Person under investigation for COVID-19 Status: Acute (2) Sepsis Status: Acute (3) UTI (urinary tract infection) Status: Acute Comment Review of Relevant I have reviewed the following items jose cruz (where applicable) has been applied. Justifications for Admission Other Justification RACIEL FREITAS MD Nov 13, 2020 11:50
[2020-11-13] MEDS: DAPTOmycin (GENERIC) IVPB 410 MG in IV NORMAL SALINE 50ML 50 ML IV SCH (13:19)
[2020-11-13 14:33] VITALS: BP 107/55
[2020-11-13 19:45] VITALS: BP 95/50
[2020-11-13 23:35] VITALS: BP 91/47
[2020-11-14 04:20] VITALS: BP 91/40
[2020-11-14] MEDS: METOPROLOL IV PUSH 5 MG/5 ML VIAL. IVP SCH ×3 (06:25→17:51)
--- NOTE | 2020-11-14 07:54 | PDOC ---
Infectious Disease Note Subjective: Subjective Pt condition remains unchanged N.p.o. 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 appears comfortable HEENT: Normocephalic, atraumatic. Anicteric. Poor dentition. Oral mucosa dry. NECK: Supple. No JVD. Right IJ clean. LUNGS: Decreased breath sounds at the base no accessory muscle use HEART: S1, S2. No murmurs. ABDOMEN: Soft, nontender, nondistended. GENITOURINARY: Harris in place. EXTREMITIES: No edema, no cyanosis. DERMATOLOGIC: Warm, dry. No generalized rash. NEUROLOGIC: Alert awake does not answer any questions PSYCHIATRIC: Calm Medications: Inpatient Meds: Medications reviewed. Labs: Micro RUN DATE: 11/08/20 [facility] LAB *LIVE* PAGE 1 RUN TIME: 1135 Specimen Inquiry PATIENT: XAVI LEWIS ACCT: [id number] LOC: [address] [place] [address] U: [id number] AGE/SX: 75/M ROOM: [facility] RE11/04/[address]: ROXANE RENTERIA MD : 1945 BED: 1 DIS: STATUS: ADM IN TLOC: SPEC #: [id number] MORALES: 11/04/20 STATUS: COMP REQ #: [id number] RECD: 11/04/[address]: SALLY BARRETT DO SOURCE: VOID ENTR: 11/04/[address]: DICKSON WATT [facility]: ORDERED: URINE CULTURE Procedure Result URINE CULTURE Final Final GREATER THAN 100,000 CFU/ML [ESCHERICHIA COLI] on 11/06/20 at 0909 GREATER THAN 100,000 CFU/ML [ENTEROCOCCUS FAECALIS] on 11/07/20 at 0757 Testing Performed by: [address] [address] For Inquires, the Physician may contact the Microbiology department at [phone] ESCHERICHIA COLI ENTEROCOCCUS FAECALIS ANTIMICROBIAL SUSCEPTIBILITY Final Comment Comment NEG SHELLI 56 ESCHERICHIA COLI ANTIBIOTIC RESULT INTERPRETATION AMPICILLIN/SULBACTAM >16/8 R AMIKACIN <=16 S AMPICILLIN >16 R AMOXICILLIN/K CLAVULANATE 16/8 I AZTREONAM <=4 S CEFTRIAXONE <=1 S CEFTAZIDIME <=1 S CEFOTAXIME <=2 S CEFOXITIN <=8 S CEFAZOLIN 8 S CIPROFLOXACIN <=0.25 S CEFEPIME <=2 S CEFUROXIME <=4 S CEFTAZIDIME/AVIBACTAM <=4 S ERTAPENEM <=0.5 S NITROFURANTOIN <=32 S GENTAMICIN <=2 S LEVOFLOXACIN <=0.5 S MEROPENEM <=1 S PIPERACILLIN/TAZOBACTAM <=8 S RUN DATE: 11/08/20 [facility] LAB *LIVE* PAGE 2 RUN TIME: 1135 Specimen Inquiry SPEC: [id number] PATIENT: XAVI LEWIS [id number] (Continued) Procedure Result CONTINUED ON NEXT PAGE RUN DATE: 11/08/20 [facility] LAB *LIVE* PAGE 3 RUN TIME: 1135 Specimen Inquiry SPEC: [id number] PATIENT: DEBBIEXAVI [id number] (Continued) -- Procedure Result ANTIMICROBIAL SUSCEPTIBILITY Final (continued) TRIMETHOPRIM/SULFAMETHOXAZOLE <=0.5/9.5 S TETRACYCLINE <=4 S TOBRAMYCIN <=2 S Streptomycin Synergy Screen S Gentamicin Synergy Screen S POS SHELLI TYPE 38 ENTEROCOCCUS FAECALIS ANTIBIOTIC RESULT INTERPRETATION AMPICILLIN <=2 S CIPROFLOXACIN <=1 S DAPTOMYCIN 1 S NITROFURANTOIN <=32 S LINEZOLID 2 S LEVOFLOXACIN <=1 S TETRACYCLINE >8 R VANCOMYCIN 1 S Unless otherwise specified, Testing Performed by: [address] [address] For Inquires, the Physician may contact the Microbiology department at [phone] RUN DATE: 11/08/20 [facility] LAB *LIVE* PAGE 1 RUN TIME: 900 Specimen Inquiry PATIENT: XAVI LEWIS ACCT: [id number] LOC: [address] [place] [address] U: [id number] AGE/SX: 75/M ROOM: [facility] RE11/04/[address]: ROXANE RENTERIA MD : 1945 BED: 1 DIS: STATUS: ADM IN TLOC: SPEC #: [id number] MORALES: 11/04/20 STATUS: COMP REQ #: [id number] RECD: 11/04/[address] [facility] DR: SALLY BARRETT DO SOURCE: BLOOD ENTR: 11/05/20 [facility] [address]: DICKSON WATT [facility]: ORDERED: BLD CULT - LC Procedure Result BLOOD CULTURE LC Final Final GRAM NEGATIVE RODS FINAL ID= [ESCHERICHIA COLI] GRAM POSITIVE COCCI FINAL ID= [ENTEROCOCCUS FAECALIS] ESCHERICHIA COLI ENTEROCOCCUS FAECALIS ANTIMICROBIAL SUSCEPTIBILITY Final Comment Comment NEG SHELLI 56 ESCHERICHIA COLI ANTIBIOTIC RESULT INTERPRETATION AMPICILLIN/SULBACTAM >16/8 R AMIKACIN <=16 S AMPICILLIN >16 R AMOXICILLIN/K CLAVULANATE 16/8 I AZTREONAM <=4 S CEFTRIAXONE <=1 S CEFTAZIDIME <=1 S CEFOTAXIME <=2 S CEFOXITIN <=8 S CEFAZOLIN >16 R CIPROFLOXACIN <=0.25 S CEFEPIME <=2 S CEFUROXIME <=4 S CEFTAZIDIME/AVIBACTAM <=4 S ERTAPENEM <=0.5 S GENTAMICIN <=2 S LEVOFLOXACIN <=0.5 S MEROPENEM <=1 S PIPERACILLIN/TAZOBACTAM 32 I TRIMETHOPRIM/SULFAMETHOXAZOLE <=0.5/9.5 S TETRACYCLINE <=4 S TOBRAMYCIN <=2 S Streptomycin Synergy Screen S Gentamicin Synergy Screen S POS SHELLI TYPE 38 ENTEROCOCCUS FAECALIS RUN DATE: 11/08/20 [facility] LAB *LIVE* PAGE 2 RUN TIME: 900 Specimen Inquiry SPEC: [id number] PATIENT: XAVI LEWIS [id number] (Continued) Procedure Result ------- ----- CONTINUED ON NEXT PAGE RUN DATE: 11/08/20 [facility] LAB *LIVE* PAGE 3 RUN TIME: 0901 Specimen Inquiry SPEC: [id number] PATIENT: XAVI LEWIS [id number] (Continued) Procedure Result ANTIMICROBIAL SUSCEPTIBILITY Final (continued) ANTIBIOTIC RESULT INTERPRETATION AMPICILLIN <=2 S DAPTOMYCIN 1 S LINEZOLID 2 S VANCOMYCIN 1 S Unless otherwise specified, Testing Performed by: [address] [address] For Inquires, the Physician may contact the Microbiology department at [phone] Objective: Assessment: 1. Sepsis, 2. Gram-negative and gram-positive bacteremia poa.source E. coli bacteremia and enterococcus 3. E. coli and enterococcus fecalis pyelonephritis 4. Leukocytosis. 5. Lactic acidosis. 6. Anemia. 7. Hematuria. 8. Dementia. 9. History of urinary retention with chronic indwelling Harris. History of recurrent UTI, 10. Atrial fibrillation. CT abdomen and pelvis November 05 Impression: 1. Perinephric and perivesicular fat stranding consistent with provided history of urinary tract infection. 2. Segmental wall thickening and adjacent fat stranding of a loop of small bowel in the midabdomen concerning for enteritis. 3. No intra-abdominal abscess identified. Plan: Plan of Care 1. Continue Ceftriaxone and Daptomycin 2. Follow-up repeat blood cultures 11/06 negative 3 Maintain aspiration precaution. 4.Harris has been changed this admission 5.Continue supportive care Discussed with LILIYA VARMA MD Nov 14, 2020 07:54
[2020-11-14 07:55] VITALS: BP 113/57
[2020-11-14] MEDS: AMIODARONE HCL 200 MG TABLET. PO SCH (09:00)
[2020-11-14 10:06] VITALS: BP 117/54
[2020-11-14] MEDS: cefTRIAXone IV Push 2 GM VIAL. IVP SCH (10:10)
[2020-11-14 14:17] VITALS: BP 107/54
[2020-11-14] MEDS: DAPTOmycin (GENERIC) IVPB 410 MG in IV NORMAL SALINE 50ML 50 ML IV SCH (14:39)
[2020-11-14 19:45] VITALS: BP 162/93
--- NOTE | 2020-11-14 20:53 | PDOC ---
GENERAL General: Patient examined chart reviewed today is hospital day 11 for this patient from [facility] admitted with E. coli and enterococcal urinary tract infection and bacteremia with sepsis. He is responding slowly to treatment. We appreciate subspecialty support. Patient is nonverbal, has a guard at bedside. We will continue current management. Appreciate subspecialty support. Problems: (1) Sepsis (2) UTI (urinary tract infection) VITAL SIGNS Vital Signs/I&O: Vital Signs Date Time Temp Pulse Resp B/P (MAP) Pulse Ox O2 Delivery O2 Flow Rate FiO2 11/14/20 19:45 98.4 70 17 162/93 (116) 95 Room Air 98.4 11/13/20 08:00 2.0 I & O 11/13/20 11/13/20 11/14/20 15:00 23:00 07:00 Intake Total 0 ml 0 ml 0 ml Output Total 650 ml Balance 0 ml 0 ml -650 ml Patient is resting in bed comfortably in no acute distress. He is nonverbal but does seem to interact. This is noted as his baseline orientation. HEENT exam is unremarkable for acute abnormality Neck is soft and supple no adenopathy or thyromegaly noted Chest is clear to auscultation Heart S1-S2 normal regular rate and rhythm no murmurs or gallops are noted Abdomen is scaphoid soft nontender nondistended no masses organomegaly noted Extremity exam is unremarkable for acute abnormality ALLERGIES Allergies: Allergies Coded Allergies Type Severity Reaction Last Updated Verified No Known Drug Allergies 11/04/20 No MEDS Medications: Current Medications Medications (Trade) Dose Ordered Sig/Betsy Start Time Stop Time Status Last Admin Dose Admin Acetaminophen (Tylenol) 650 mg PRN Q6HRS PRN 11/04/20 19:15 Acetaminophen/ Hydrocodone Bitart (Lortab 5/325) 1 tab PRN Q4HRS PRN 11/04/20 19:15 Al Hydroxide/Mg Hydroxide (Mylanta Plus Xs) 30 ml PRN Q3HRS PRN 11/04/20 19:15 Amino Acids/ Electrolytes/ Dextrose 1,000 ml @ 80 mls/hr [id number] 11/09/20 13:45 11/13/20 21:17 Amiodarone HCl (Cordarone) 200 mg DAILY 11/06/20 12:00 11/08/20 09:30 Aspirin (Aspirin Rectal Supp) 300 mg 1X ONCE 11/06/20 12:00 11/06/20 12:01 DC 11/06/20 12:46 Calcium Carbonate/ Glycine (Tums) 500 mg PRN Q3HRS PRN 11/04/20 19:15 Calcium Gluconate (Calcium Gluconate) 1,000 mg 1X ONCE 11/04/20 17:30 11/04/20 17:31 UNV Calcium Gluconate 1000 mg/Sodium Chloride 110 ml @ 220 mls/hr 1X ONCE 11/04/20 17:30 11/04/20 17:59 DC 11/04/20 18:11 Cefepime HCl (Maxipime) 2 gm Q8HRS 11/05/20 17:30 11/08/20 08:00 DC 11/08/20 06:23 Ceftriaxone Sodium (Rocephin) 2 gm Q24H 11/08/20 09:00 11/14/20 10:10 Daptomycin 410 mg/ Sodium Chloride 50 ml @ 100 mls/hr Q24H 11/05/20 14:00 11/14/20 14:39 Diltiazem HCl 125 mg/Sodium Chloride 125 ml @ 5 mls/hr CONT PRN 11/05/20 16:30 11/08/20 18:39 DC 11/06/20 04:02 Furosemide (Lasix) 40 mg 1X ONCE 11/07/20 14:00 11/07/20 14:01 DC 11/07/20 14:47 Haloperidol Lactate (Haldol Inj) 5 mg PRN Q6HRS PRN 11/04/20 19:15 Lactobacillus Rhamnosus (Culturelle) 1 cap BID 11/05/20 09:00 11/09/20 16:46 DC 11/08/20 09:29 Linezolid/Dextrose 300 ml @ 300 mls/hr 1X ONCE 11/05/20 09:45 11/05/20 10:44 DC 11/05/20 13:25 Lorazepam (Ativan Inj) 1 mg 1X ONCE 11/10/20 12:15 11/10/20 12:16 DC 11/10/20 13:18 Magnesium Hydroxide (Milk Of Magnesia) 2,400 mg PRN Q12HR PRN 11/04/20 19:15 Magnesium Sulfate 50 ml @ 25 mls/hr 1X ONCE 11/04/20 17:30 11/04/20 19:29 DC 11/04/20 17:43 Metoprolol Tartrate (Lopressor Vial) 5 mg Q6HRS 11/09/20 12:00 11/14/20 17:51 Metoprolol Tartrate (Lopressor) 25 mg BID 11/06/20 12:00 11/09/20 11:18 DC 11/08/20 09:30 Morphine Sulfate (Morphine Sulfate) 4 mg PRN Q3HRS PRN 11/04/20 19:00 Ondansetron HCl (Zofran) 4 mg PRN Q6HRS PRN 11/04/20 19:15 Sodium Chloride 1,000 ml @ 100 mls/hr 1X ONCE 11/04/20 19:30 11/05/20 05:29 DC Zolpidem Tartrate (Ambien) 5 mg PRN QHS PRN 11/04/20 19:15 ASSESSMENT & PLAN A&P Plan as noted above This note was created using [employer] and may have omissions and/or errors due to the nature of real-time voice flume worker. 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
[2020-11-14 23:45] VITALS: BP 130/61
[2020-11-15] MEDS: AA 4.25 %/CALCIUM/LYTES/D5W 1,000 ML IV SCH ×3 (01:27→19:45)
[2020-11-15] MEDS: METOPROLOL IV PUSH 5 MG/5 ML VIAL. IVP SCH ×5 (01:28→23:24)
[2020-11-15 03:50] VITALS: BP 119/53
[2020-11-15 05:43] LABS: ALBUMIN 2.9 g/dL (3.4-5.0); ALBUMIN/GLOBULIN RATIO 0.9 (1.0-1.7); CALCIUM 8.9 mg/dL (8.5-10.1); CREATININE 0.9 mg/dL (0.7-1.3); GFR 82.5; POTASSIUM 4.2 mmol/L (3.5-5.1); TOTAL BILIRUBIN 0.2 mg/dL (0.2-1.0); TOTAL PROTEIN 6.3 g/dL (6.4-8.2)
[2020-11-15 05:50] LABS: BASO % 1 % (0-3); EOS # 0.1 x10^3/uL (0.0-0.7); EOS % 2 % (0-3); HEMATOCRIT 37.8 % (39.0-53.0); HEMOGLOBIN 12.4 g/dL (13.0-17.5); LYMPH # 2.3 x10^3/uL (1.0-4.8); LYMPH % 27 % (24-48); MEAN CORPUSCULAR HEMOGLOBIN 28 pg (25-35); MEAN CORPUSCULAR HGB CONC 33 g/dL (31-37); MEAN CORPUSCULAR VOLUME 86 fL (79-100); MONO # 0.7 x10^3/uL (0.0-1.1); MONO % 8 % (0-9); NEUT # 5.4 x10^3/uL (1.8-7.7); NEUT % 63 % (31-73); PLATELET COUNT 282 x10^3/uL (140-400); RED BLOOD COUNT 4.43 x10^6/uL (4.30-5.70); RED CELL DISTRIBUTION WIDTH 16.2 % (11.5-14.5); WHITE BLOOD COUNT 8.5 x10^3/uL (4.0-11.0)
[2020-11-15 07:18] VITALS: BP 110/48
--- NOTE | 2020-11-15 07:59 | PDOC ---
Infectious Disease Note Subjective: Subjective Pt condition remains unchanged tolerating po intake well puddler pile driving at bedside Remains afebrile Vital Signs: Vital Signs Vital Signs Date Time Temp Pulse Resp B/P (MAP) Pulse Ox O2 Delivery O2 Flow Rate FiO2 11/15/20 07:18 97.1 62 18 110/48 (68) 95 Room Air 97.1 Physical Exam: PHYSICAL EXAM GENERAL: dosing Does not answer any questions. appears comfortable HEENT: Normocephalic, atraumatic. Anicteric. Poor dentition. Oral mucosa dry. NECK: Supple. No JVD. Right IJ clean. LUNGS: Decreased breath sounds at the base no accessory muscle use HEART: S1, S2. No murmurs. ABDOMEN: Soft, nontender, nondistended. GENITOURINARY: Harris in place. EXTREMITIES: No edema, no cyanosis. DERMATOLOGIC: Warm, dry. No generalized rash. NEUROLOGIC: Alert awake does not answer any questions PSYCHIATRIC: Calm Medications: Inpatient Meds: Medications reviewed. Labs: Lab Laboratory Tests Test 11/15/20 05:05 White Blood Count 8.5 x10^3/uL (4.0-11.0) Red Blood Count 4.43 x10^6/uL (4.30-5.70) Hemoglobin 12.4 g/dL (13.0-17.5) Hematocrit 37.8 % (39.0-53.0) Mean Corpuscular Volume 86 fL (79-100) Mean Corpuscular Hemoglobin 28 pg (25-35) Mean Corpuscular Hemoglobin Concent 33 g/dL (31-37) Red Cell Distribution Width 16.2 % (11.5-14.5) Platelet Count 282 x10^3/uL (140-400) Neutrophils (%) (Auto) 63 % (31-73) Lymphocytes (%) (Auto) 27 % (24-48) Monocytes (%) (Auto) 8 % (0-9) Eosinophils (%) (Auto) 2 % (0-3) Basophils (%) (Auto) 1 % (0-3) Neutrophils # (Auto) 5.4 x10^3/uL (1.8-7.7) Lymphocytes # (Auto) 2.3 x10^3/uL (1.0-4.8) Monocytes # (Auto) 0.7 x10^3/uL (0.0-1.1) Eosinophils # (Auto) 0.1 x10^3/uL (0.0-0.7) Basophils # (Auto) 0.0 x10^3/uL (0.0-0.2) Sodium Level 139 mmol/L (136-145) Potassium Level 4.2 mmol/L (3.5-5.1) Chloride Level 105 mmol/L (98-107) Carbon Dioxide Level 27 mmol/L (21-32) Anion Gap 7 (6-14) Blood Urea Nitrogen 25 mg/dL (8-26) Creatinine 0.9 mg/dL (0.7-1.3) Estimated GFR (Cockcroft-Gault) 82.5 BUN/Creatinine Ratio 28 (6-20) Glucose Level 99 mg/dL (70-99) Calcium Level 8.9 mg/dL (8.5-10.1) Total Bilirubin 0.2 mg/dL (0.2-1.0) Aspartate Amino Transf (AST/SGOT) 25 U/L (15-37) Alanine Aminotransferase (ALT/SGPT) 29 U/L (16-63) Alkaline Phosphatase 61 U/L (46-116) Total Protein 6.3 g/dL (6.4-8.2) Albumin 2.9 g/dL (3.4-5.0) Albumin/Globulin Ratio 0.9 (1.0-1.7) Micro RUN DATE: 11/08/20 [facility] *LIVE* PAGE 1 RUN TIME: 1135 Specimen Inquiry PATIENT: XAVI LEWIS ACCT: [id number] LOC: [address] [place] [address] U: [id number] AGE/SX: 75/M ROOM: 5 RE11/04/[address]: ROXANE RENTERIA MD : 1945 BED: 1 DIS: STATUS: ADM IN TLOC: SPEC #: [id number] MORALES: 11/04/20 STATUS: COMP REQ #: [id number] RECD: 11/04/[address]: SALLY BARRETT DO SOURCE: VOID ENTR: 11/04/[address] [facility] [address]: DICKSON WATT SPDESC: ORDERED: URINE CULTURE Procedure Result URINE CULTURE Final Final GREATER THAN 100,000 CFU/ML [ESCHERICHIA COLI] on 11/06/20 at 0909 GREATER THAN 100,000 CFU/ML [ENTEROCOCCUS FAECALIS] on 11/07/20 at 0757 Testing Performed by: [address] [address] For Inquires, the Physician may contact the Microbiology department at [phone] ESCHERICHIA COLI ENTEROCOCCUS FAECALIS ANTIMICROBIAL SUSCEPTIBILITY Final Comment Comment NEG SHELLI 56 ESCHERICHIA COLI ANTIBIOTIC RESULT INTERPRETATION AMPICILLIN/SULBACTAM >16/8 R AMIKACIN <=16 S AMPICILLIN >16 R AMOXICILLIN/K CLAVULANATE 16/8 I AZTREONAM <=4 S CEFTRIAXONE <=1 S CEFTAZIDIME <=1 S CEFOTAXIME <=2 S CEFOXITIN <=8 S CEFAZOLIN 8 S CIPROFLOXACIN <=0.25 S CEFEPIME <=2 S CEFUROXIME <=4 S CEFTAZIDIME/AVIBACTAM <=4 S ERTAPENEM <=0.5 S NITROFURANTOIN <=32 S GENTAMICIN <=2 S LEVOFLOXACIN <=0.5 S MEROPENEM <=1 S PIPERACILLIN/TAZOBACTAM <=8 S RUN DATE: 11/08/20 [facility] *LIVE* PAGE 2 RUN TIME: 1135 Specimen Inquiry SPEC: [id number] PATIENT: XAVI LEWIS [id number] (Continued) Procedure Result CONTINUED ON NEXT PAGE RUN DATE: 11/08/20 [facility] *LIVE* PAGE 3 RUN TIME: 1135 Specimen Inquiry SPEC: [id number] PATIENT: XAVI LEWIS [id number] (Continued) -- Procedure Result ANTIMICROBIAL SUSCEPTIBILITY Final (continued) TRIMETHOPRIM/SULFAMETHOXAZOLE <=0.5/9.5 S TETRACYCLINE <=4 S TOBRAMYCIN <=2 S Streptomycin Synergy Screen S Gentamicin Synergy Screen S POS SHELLI TYPE 38 ENTEROCOCCUS FAECALIS ANTIBIOTIC RESULT INTERPRETATION AMPICILLIN <=2 S CIPROFLOXACIN <=1 S DAPTOMYCIN 1 S NITROFURANTOIN <=32 S LINEZOLID 2 S LEVOFLOXACIN <=1 S TETRACYCLINE >8 R VANCOMYCIN 1 S Unless otherwise specified, Testing Performed by: [address] [address] For Inquires, the Physician may contact the Microbiology department at [phone] RUN DATE: 11/08/20 [facility] *LIVE* PAGE 1 RUN TIME: 900 Specimen Inquiry PATIENT: XAVI LEWIS ACCT: [id number] LOC: [address] [place] [address] U: [id number] AGE/SX: 75/M ROOM: [facility] RE11/04/[address]: ROXANE RENTERIA MD : 1945 BED: 1 DIS: STATUS: ADM IN TLOC: SPEC #: [id number] MORALES: 11/04/20-1639 STATUS: COMP REQ #: [id number] RECD: 11/04/[address]: SALLY BARRETT DO SOURCE: BLOOD ENTR: 11/05/20 ALYCIA REYNOSO: DICKSON WATT SPDC: ORDERED: BLD CULT - LC Procedure Result BLOOD CULTURE LC Final Final GRAM NEGATIVE RODS FINAL ID= [ESCHERICHIA COLI] GRAM POSITIVE COCCI FINAL ID= [ENTEROCOCCUS FAECALIS] ESCHERICHIA COLI ENTEROCOCCUS FAECALIS ANTIMICROBIAL SUSCEPTIBILITY Final Comment Comment NEG SHELLI 56 ESCHERICHIA COLI ANTIBIOTIC RESULT INTERPRETATION AMPICILLIN/SULBACTAM >16/8 R AMIKACIN <=16 S AMPICILLIN >16 R AMOXICILLIN/K CLAVULANATE 16/8 I AZTREONAM <=4 S CEFTRIAXONE <=1 S CEFTAZIDIME <=1 S CEFOTAXIME <=2 S CEFOXITIN <=8 S CEFAZOLIN >16 R CIPROFLOXACIN <=0.25 S CEFEPIME <=2 S CEFUROXIME <=4 S CEFTAZIDIME/AVIBACTAM <=4 S ERTAPENEM <=0.5 S GENTAMICIN <=2 S LEVOFLOXACIN <=0.5 S MEROPENEM <=1 S PIPERACILLIN/TAZOBACTAM 32 I TRIMETHOPRIM/SULFAMETHOXAZOLE <=0.5/9.5 S TETRACYCLINE <=4 S TOBRAMYCIN <=2 S Streptomycin Synergy Screen S Gentamicin Synergy Screen S POS SHELLI TYPE 38 ENTEROCOCCUS FAECALIS RUN DATE: 11/08/20 [facility] *LIVE* PAGE 2 RUN TIME: 900 Specimen Inquiry SPEC: [id number] PATIENT: XAVI LEWIS [id number] (Continued) Procedure Result ------- ----- CONTINUED ON NEXT PAGE RUN DATE: 11/08/20 [facility] *LIVE* PAGE 3 RUN TIME: 900 Specimen Inquiry SPEC: [id number] PATIENT: XAVI LEWIS [id number] (Continued) Procedure Result ANTIMICROBIAL SUSCEPTIBILITY Final (continued) ANTIBIOTIC RESULT INTERPRETATION AMPICILLIN <=2 S DAPTOMYCIN 1 S LINEZOLID 2 S VANCOMYCIN 1 S Unless otherwise specified, Testing Performed by: [address] [address] For Inquires, the Physician may contact the Microbiology department at [phone] Objective: Assessment: 1. Sepsis, 2. E. coli bacteremia and enterococcus poa.source 3. E. coli and enterococcus fecalis pyelonephritis 4. Leukocytosis. Improved 5. Lactic acidosis. Improved 6. Anemia. 7. Hematuria. 8. Dementia. 9. History of urinary retention with chronic indwelling Harris. History of recurrent UTI, 10. Atrial fibrillation. 11. Dysphagia CT abdomen and pelvis November 05 Impression: 1. Perinephric and perivesicular fat stranding consistent with provided history of urinary tract infection. 2. Segmental wall thickening and adjacent fat stranding of a loop of small bowel in the midabdomen concerning for enteritis. 3. No intra-abdominal abscess identified. Plan: Plan of Care 1. Continue Ceftriaxone and Daptomycin (11/05) for now 2. Follow-up repeat blood cultures 11/06 negative 3 Maintain aspiration precaution. 4.Harris has been changed this admission 5.Continue supportive care Discussed with LILIYA VARMA MD Nov 15, 2020 07:59
[2020-11-15] MEDS: AMIODARONE HCL 200 MG TABLET. PO SCH (09:00)
[2020-11-15] MEDS: cefTRIAXone IV Push 2 GM VIAL. IVP SCH (09:41)
[2020-11-15 11:46] VITALS: BP 107/54
[2020-11-15] MEDS: DAPTOmycin (GENERIC) IVPB 410 MG in IV NORMAL SALINE 50ML 50 ML IV SCH (14:28)
[2020-11-15 14:47] VITALS: BP 134/52
--- NOTE | 2020-11-15 18:37 | PDOC ---
GENERAL General: Patient examined chart reviewed discussed with nursing. Seen with nurse and customs and border protection officer at bedside. He has had voluminous diarrhea today and she has sent for stool culture including C. difficile. Diarrhea is so significant that he is requiring rectal tube for management that is just been placed. We will continue current management otherwise. Appreciate subspecialty support. Problems: (1) Sepsis (2) UTI (urinary tract infection) VITAL SIGNS Vital Signs/I&O: Vital Signs Date Time Temp Pulse Resp B/P (MAP) Pulse Ox O2 Delivery O2 Flow Rate FiO2 11/15/20 17:31 62 134/52 11/15/20 14:47 97.4 16 92 Room Air 97.4 I & O 11/14/20 11/14/20 11/15/20 15:00 23:00 07:00 Intake Total 10 ml 1060 ml Output Total 1200 ml 600 ml Balance 10 ml -1200 ml 460 ml In general the patient is nonverbal laying in bed just had a rectal tube placed he does not appear to happy about that HEENT exam is unremarkable for acute abnormality Chest is clear to auscultation Heart S1-S2 normal regular rate and rhythm no murmurs or gallops are noted Abdomen soft nontender nondistended no masses organomegaly noted Extremity exam is unremarkable for acute abnormality ALLERGIES Allergies: Allergies Coded Allergies Type Severity Reaction Last Updated Verified No Known Drug Allergies 11/04/20 No MEDS Medications: Current Medications Medications (Trade) Dose Ordered Sig/Betsy Start Time Stop Time Status Last Admin Dose Admin Acetaminophen (Tylenol) 650 mg PRN Q6HRS PRN 11/04/20 19:15 Acetaminophen/ Hydrocodone Bitart (Lortab 5/325) 1 tab PRN Q4HRS PRN 11/04/20 19:15 Al Hydroxide/Mg Hydroxide (Mylanta Plus Xs) 30 ml PRN Q3HRS PRN 11/04/20 19:15 Amino Acids/ Electrolytes/ Dextrose 1,000 ml @ 80 mls/hr [id number] 11/09/20 13:45 11/15/20 13:54 Amiodarone HCl (Cordarone) 200 mg DAILY 11/06/20 12:00 11/08/20 09:30 Aspirin (Aspirin Rectal Supp) 300 mg 1X ONCE 11/06/20 12:00 11/06/20 12:01 DC 11/06/20 12:46 Calcium Carbonate/ Glycine (Tums) 500 mg PRN Q3HRS PRN 11/04/20 19:15 Calcium Gluconate (Calcium Gluconate) 1,000 mg 1X ONCE 11/04/20 17:30 11/04/20 17:31 UNV Calcium Gluconate 1000 mg/Sodium Chloride 110 ml @ 220 mls/hr 1X ONCE 11/04/20 17:30 11/04/20 17:59 DC 11/04/20 18:11 Cefepime HCl (Maxipime) 2 gm Q8HRS 11/05/20 17:30 11/08/20 08:00 DC 11/08/20 06:23 Ceftriaxone Sodium (Rocephin) 2 gm Q24H 11/08/20 09:00 11/15/20 09:41 Daptomycin 410 mg/ Sodium Chloride 50 ml @ 100 mls/hr Q24H 11/05/20 14:00 11/15/20 14:28 Diltiazem HCl 125 mg/Sodium Chloride 125 ml @ 5 mls/hr CONT PRN 11/05/20 16:30 11/08/20 18:39 DC 11/06/20 04:02 Furosemide (Lasix) 40 mg 1X ONCE 11/07/20 14:00 11/07/20 14:01 DC 11/07/20 14:47 Haloperidol Lactate (Haldol Inj) 5 mg PRN Q6HRS PRN 11/04/20 19:15 Lactobacillus Rhamnosus (Culturelle) 1 cap BID 11/05/20 09:00 11/09/20 16:46 DC 11/08/20 09:29 Linezolid/Dextrose 300 ml @ 300 mls/hr 1X ONCE 11/05/20 09:45 11/05/20 10:44 DC 11/05/20 13:25 Lorazepam (Ativan Inj) 1 mg 1X ONCE 11/10/20 12:15 11/10/20 12:16 DC 11/10/20 13:18 Magnesium Hydroxide (Milk Of Magnesia) 2,400 mg PRN Q12HR PRN 11/04/20 19:15 Magnesium Sulfate 50 ml @ 25 mls/hr 1X ONCE 11/04/20 17:30 11/04/20 19:29 DC 11/04/20 17:43 Metoprolol Tartrate (Lopressor Vial) 5 mg Q6HRS 11/09/20 12:00 11/15/20 17:31 Metoprolol Tartrate (Lopressor) 25 mg BID 11/06/20 12:00 11/09/20 11:18 DC 11/08/20 09:30 Morphine Sulfate (Morphine Sulfate) 4 mg PRN Q3HRS PRN 11/04/20 19:00 Ondansetron HCl (Zofran) 4 mg PRN Q6HRS PRN 11/04/20 19:15 Sodium Chloride 1,000 ml @ 100 mls/hr 1X ONCE 11/04/20 19:30 11/05/20 05:29 DC Zolpidem Tartrate (Ambien) 5 mg PRN QHS PRN 11/04/20 19:15 LAB Lab: Laboratory Tests Test 11/15/20 05:05 White Blood Count 8.5 x10^3/uL (4.0-11.0) Red Blood Count 4.43 x10^6/uL (4.30-5.70) Hemoglobin 12.4 g/dL (13.0-17.5) L Hematocrit 37.8 % (39.0-53.0) L Mean Corpuscular Volume 86 fL (79-100) Mean Corpuscular Hemoglobin 28 pg (25-35) Mean Corpuscular Hemoglobin Concent 33 g/dL (31-37) Red Cell Distribution Width 16.2 % (11.5-14.5) H Platelet Count 282 x10^3/uL (140-400) Neutrophils (%) (Auto) 63 % (31-73) Lymphocytes (%) (Auto) 27 % (24-48) Monocytes (%) (Auto) 8 % (0-9) Eosinophils (%) (Auto) 2 % (0-3) Basophils (%) (Auto) 1 % (0-3) Neutrophils # (Auto) 5.4 x10^3/uL (1.8-7.7) Lymphocytes # (Auto) 2.3 x10^3/uL (1.0-4.8) Monocytes # (Auto) 0.7 x10^3/uL (0.0-1.1) Eosinophils # (Auto) 0.1 x10^3/uL (0.0-0.7) Basophils # (Auto) 0.0 x10^3/uL (0.0-0.2) Sodium Level 139 mmol/L (136-145) Potassium Level 4.2 mmol/L (3.5-5.1) Chloride Level 105 mmol/L (98-107) Carbon Dioxide Level 27 mmol/L (21-32) Anion Gap 7 (6-14) Blood Urea Nitrogen 25 mg/dL (8-26) Creatinine 0.9 mg/dL (0.7-1.3) Estimated GFR (Cockcroft-Gault) 82.5 BUN/Creatinine Ratio 28 (6-20) H Glucose Level 99 mg/dL (70-99) Calcium Level 8.9 mg/dL (8.5-10.1) Total Bilirubin 0.2 mg/dL (0.2-1.0) Aspartate Amino Transferase (AST) 25 U/L (15-37) Alanine Aminotransferase (ALT) 29 U/L (16-63) Alkaline Phosphatase 61 U/L (46-116) Total Protein 6.3 g/dL (6.4-8.2) L Albumin 2.9 g/dL (3.4-5.0) L Albumin/Globulin Ratio 0.9 (1.0-1.7) L Laboratory Tests 11/15/20 05:05 Laboratory Tests 11/15/20 05:05 ASSESSMENT & PLAN A&P Plan as noted above This note was created using [employer] and may have omissions and/or errors due to the nature of real-time voice medical assistant. 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
[2020-11-15 19:50] VITALS: BP 116/61
[2020-11-15 23:30] VITALS: BP 105/48
[2020-11-16 03:50] VITALS: BP 100/57
[2020-11-16] MEDS: METOPROLOL IV PUSH 5 MG/5 ML VIAL. IVP SCH ×2 (04:48→12:00)
[2020-11-16] MEDS: AA 4.25 %/CALCIUM/LYTES/D5W 1,000 ML IV SCH (04:48)
[2020-11-16 07:00] VITALS: BP 139/36
--- NOTE | 2020-11-16 09:49 | PDOC ---
Infectious Disease Note Subjective Subjective Pt condition remains unchanged tolerating po intake well chief guard at bedside Remains afebrile ROS ROS no n/v/d/ Vital Sign Vital Signs Vital Signs Date Time Temp Pulse Resp B/P (MAP) Pulse Ox O2 Delivery O2 Flow Rate FiO2 11/16/20 07:00 98.0 64 18 139/36 (70) 98 Room Air 98.0 Physical Exam PHYSICAL EXAM GENERAL: dosing Does not answer any questions. appears comfortable HEENT: Normocephalic, atraumatic. Anicteric. Poor dentition. Oral mucosa dry. NECK: Supple. No JVD. Right IJ clean. LUNGS: Decreased breath sounds at the base no accessory muscle use HEART: S1, S2. No murmurs. ABDOMEN: Soft, nontender, nondistended. GENITOURINARY: Harris in place. EXTREMITIES: No edema, no cyanosis. DERMATOLOGIC: Warm, dry. No generalized rash. NEUROLOGIC: Alert awake does not answer any questions PSYCHIATRIC: Calm Labs Micro Microbiology 11/06/20 Blood Culture - Final, Complete NO GROWTH AFTER 5 DAYS 11/04/20 Urine Culture - Final, Complete 11/04/20 Antimicrobic Susceptibility - Final, Complete Objective Assessment 1. Sepsis, 2. E. coli bacteremia and enterococcus poa.source 3. E. coli and enterococcus fecalis pyelonephritis 4. Leukocytosis. Improved 5. Lactic acidosis. Improved 6. Anemia. 7. Hematuria. 8. Dementia. 9. History of urinary retention with chronic indwelling Harris. History of recurrent UTI, 10. Atrial fibrillation. 11. Dysphagia Plan Plan of Care 1. change antibiotics to po zyvox and cefdinir for 10 days 2. Follow-up repeat blood cultures 11/06 negative 3 Maintain aspiration precaution. 4.Harris has been changed this admission 5.Continue supportive care Discussed with RN d/w Dr López ok to d/c back to long term prognosis poor MALLORY BARBER MD Nov 16, 2020 09:49
[2020-11-16 10:31] VITALS: BP 117/50
[2020-11-16] MEDS ORDERED: LINEZOLID 600 MG TABLET PO SCH (11:00)
[2020-11-16] MEDS ORDERED: CEFDINIR 300 MG CAPSULE PO SCH (11:00)
--- NOTE | 2020-11-16 11:00 | PDOC ---
[employer] PROGRESS NOTE Date of Service DOS: DATE: 11/16/20 TIME: 10:57 Chief Complaint Chief Complaint Assessment/Plan Assessment/Plan Urosepsis Acute cystitis Chronic indwelling Corado Hematuria secondary to chronic indwelling Corado Normocytic anemia Atrial fibrillation Dementia Severe malnutrition Segmental wall thickening and adjacent fat stranding of a loop of small bowel in the midabdomen concerning for enteritis. Plan: continuous IV fluids Corado catheter was changed in the ED Provide pain medications N.p.o., patient failed multiple speech evaluations. May need PEG tube --> MPOA contacted and agreed to proceed with procedure if needed home medications we can once identified PPX - SCDs FULL CODE Dispo - inpatient for above Discussed with patient but did not name surrogate decision-maker Continue Rocephin and daptomycin. d/w RN Justifications for Admission Justifications for Admission Other Justification History of Present Illness History of Present Illness Identification/Chief Complaint Chief Complaint Blood in urine Source Source: Chart review History of Present Illness History of Present Illness Patient 75-year-old male with past medical history dementia, chronic indwelling Corado catheter, who presents from [facility] due to blood found in his Corado catheter. His Corado was recently changed at his correctional facility, he was sent to the ED due to continued bleeding. He was supposed to follow-up at [facility] for urology, however they never returned to [facility] because his blood pressure was low, 84/40 mmHg. Upon arrival in the ED he was tachycardic, afebrile, we did require 2 L nasal cannula due to some hypoxia. Labs on admission showed WBC 13.8, hemoglobin 8.6, hematocrit 26.5, MCV 88, platelets 225, lactic acid 2.1, albumin 2.0. His rapid COVID-19 was negative. His urinalysis showed RBCs TNTC, WBC >40, urine bacteria moderate, further UA results were not performed likely due to gross hematuria. He has been vaccinated against COVID-19. He received Rocephin 1 g and IV fluids. Will admit patient for further medical management. 11-08 URINE CULTURE Preliminary Preliminary GREATER THAN 100,000 CFU/ML [ESCHERICHIA COLI] on 11/06/20 at 0909 GREATER THAN 100,000 CFU/ML [ENTEROCOCCUS FAECALIS] SEPSIS WITH BACTEREMIA Urosepsis Acute cystitis Chronic indwelling Corado Hematuria secondary to chronic indwelling Corado Normocytic anemia Atrial fibrillation Dementia Severe malnutrition Segmental wall thickening and adjacent fat stranding of a loop of small bowel in the midabdomen concerning for enteritis. continuous IV fluids Corado catheter was changed in the ED PRN pain medications home medications we can once identified FEN - Cardiac diet PPX - SCDs FULL CODE Dispo - inpatient for above Discussed with patient but did not name surrogate decision-maker CT abdomen and pelvis. REVIEWED REPEAT BLOOD CULTURES CONSULT GI RE ABNORMAL CT d/c cefepimE CONT daptomycin. , restart rocephin 2 gm iv q 24 hrs d/w RN 11/09/20 Patient seen and examined at bedside. No major events or changes overnight. C ontinue antibiotics per ID. Change corado. 11/10 No major events or changes overnight. Patient seen and examined at bedside. Continue antibiotics. Discussed with patient's correctional facility certified medical biller today, they were able to provide a possible phone number for a named Manasa. Will attempt to contact her. Keep n.p.o. May need PEG tube. Plan discussed bedside RN 11/11 Spoke with patient's this morning regarding plan of care and findings. She would like to proceed with PEG tube placement. She is spoken this over with her son. Otherwise no major changes. Continue antibiotics. Out of bed as tolerated. Plan of care discussed with bedside RN. 11/12 Patient evaluated at bedside, no major clinical changes. Patient again evaluated by speech today, hard to tell exactly how well his swallow function is doing. PEG tube still planned if needed. Daily swallow evaluation. Will resume diet if approved by speech team. 11/13 Seen at bedside. No changes clnically. Speech team recommending advancing diet today. 11/16/2020: Afebrile. No acute events overnight. Discussed with Dr. Chapman, will switch antibiotics to oral Zyvox and cefdinir to complete 10-day course. He may discharge back to [facility]. Greater than 30 minutes spent managing discharge this patient. Vitals/I&O Vitals/I&O: Vital Signs Date Time Temp Pulse Resp B/P (MAP) Pulse Ox O2 Delivery O2 Flow Rate FiO2 11/16/20 10:31 98.0 68 18 117/50 (72) 91 Room Air 98.0 I & O 11/15/20 11/15/2021 15:00 23:00 07:00 Intake Total 120 ml 0 ml 0 ml Output Total 1250 ml Balance 120 ml 0 ml -1250 ml Physical Exam Physical Exam: GENERAL: dosing Does not answer any questions. appears comfortable HEENT: Normocephalic, atraumatic. Anicteric. Poor dentition. Oral mucosa dry. NECK: Supple. No JVD. Right IJ clean. LUNGS: Decreased breath sounds at the base no accessory muscle use HEART: S1, S2. No murmurs. ABDOMEN: Soft, nontender, nondistended. GENITOURINARY: Corado in place. EXTREMITIES: No edema, no cyanosis. DERMATOLOGIC: Warm, dry. No generalized rash. NEUROLOGIC: Alert awake does not answer any questions PSYCHIATRIC: Calm General: Cooperative, No acute distress, Other (nonverbal) Heart: Regular rate, Normal S1 Lungs: Clear Abdomen: Soft, No tenderness Extremities: No cyanosis, No edema Skin: No breakdown, No significant lesion Assessment and Plan Assessmemt and Plan Problems Medical Problems: (1) Person under investigation for COVID-19 Status: Acute (2) Sepsis Status: Acute (3) UTI (urinary tract infection) Status: Acute Comment Review of Relevant I have reviewed the following items jose cruz (where applicable) has been applied. Justifications for Admission Other Justification ROXANE RENTERIA MD Nov 16, 2020 11:00
--- NOTE | 2020-11-16 11:03 | PDOC3 ---
Discharge Summary Visit Information Date of Admission: Nov 04, 2020 Date of Discharge: Nov 16, 2020 Final Diagnosis Problems Medical Problems: (1) Person under investigation for COVID-19 Status: Acute (2) Sepsis Status: Acute (3) UTI (urinary tract infection) Status: Acute Brief Hospital Course Allergies Allergies Coded Allergies Type Severity Reaction Last Updated Verified No Known Drug Allergies 11/04/20 No Vital Signs Vital Signs Date Time Temp Pulse Resp B/P (MAP) Pulse Ox O2 Delivery O2 Flow Rate FiO2 11/16/20 10:31 98.0 68 18 117/50 (72) 91 Room Air 98.0 Lab Results Laboratory Tests Test 11/15/20 05:05 White Blood Count 8.5 x10^3/uL (4.0-11.0) Red Blood Count 4.43 x10^6/uL (4.30-5.70) Hemoglobin 12.4 g/dL (13.0-17.5) Hematocrit 37.8 % (39.0-53.0) Mean Corpuscular Volume 86 fL (79-100) Mean Corpuscular Hemoglobin 28 pg (25-35) Mean Corpuscular Hemoglobin Concent 33 g/dL (31-37) Red Cell Distribution Width 16.2 % (11.5-14.5) Platelet Count 282 x10^3/uL (140-400) Neutrophils (%) (Auto) 63 % (31-73) Lymphocytes (%) (Auto) 27 % (24-48) Monocytes (%) (Auto) 8 % (0-9) Eosinophils (%) (Auto) 2 % (0-3) Basophils (%) (Auto) 1 % (0-3) Neutrophils # (Auto) 5.4 x10^3/uL (1.8-7.7) Lymphocytes # (Auto) 2.3 x10^3/uL (1.0-4.8) Monocytes # (Auto) 0.7 x10^3/uL (0.0-1.1) Eosinophils # (Auto) 0.1 x10^3/uL (0.0-0.7) Basophils # (Auto) 0.0 x10^3/uL (0.0-0.2) Sodium Level 139 mmol/L (136-145) Potassium Level 4.2 mmol/L (3.5-5.1) Chloride Level 105 mmol/L (98-107) Carbon Dioxide Level 27 mmol/L (21-32) Anion Gap 7 (6-14) Blood Urea Nitrogen 25 mg/dL (8-26) Creatinine 0.9 mg/dL (0.7-1.3) Estimated GFR (Cockcroft-Gault) 82.5 BUN/Creatinine Ratio 28 (6-20) Glucose Level 99 mg/dL (70-99) Calcium Level 8.9 mg/dL (8.5-10.1) Total Bilirubin 0.2 mg/dL (0.2-1.0) Aspartate Amino Transf (AST/SGOT) 25 U/L (15-37) Alanine Aminotransferase (ALT/SGPT) 29 U/L (16-63) Alkaline Phosphatase 61 U/L (46-116) Total Protein 6.3 g/dL (6.4-8.2) Albumin 2.9 g/dL (3.4-5.0) Albumin/Globulin Ratio 0.9 (1.0-1.7) Brief Hospital Course Mr. Aly is a 75 old male who presented from [facility] with sepsis, UTI. Consultation was placed to ID, GI, and cardiology. He was treated with IV Rocephin. Urine culture showed E. coli that was resistant to ampicillin. He was stable for discharge back to his correctional facility on oral cefdinir and Zyvox. Discharge Information Condition at Discharge: Improved Disposition/Orders: D/C to Another Facility Scheduled Acetaminophen (Acetaminophen) 325 Mg Tablet, 650 MG PO QID for pain/fever, (Reported) Entered as Reported by: JACKI FRANCES on 11/04/202300 Last Action: New Order on 11/04/202300 by JACKI FRANCES Amiodarone Hcl (Amiodarone Hcl) 200 Mg Tablet, 200 MG PO DAILY for heart rate, (Reported) Entered as Reported by: JACKI FRANCES on 11/04/202301 Last Action: Continued on 11/06/201132 by MELANIA ESPINAL Apixaban (Eliquis) 5 Mg Tablet, 5 MG PO BID for blood thinner, (Reported) Entered as Reported by: JACKI FRANCES on 11/04/202304 Last Action: New Order on 11/04/202304 by JACKI J FRANCES Aripiprazole (Abilify) 2 Mg Tablet, 2 MG PO HS for mood stabilizer, (Reported) Entered as Reported by: JACKI FRANCES on 11/04/202258 Last Action: New Order on 11/04/202258 by JACKI FRANCES Kusilvak Tar (Thera-Gel) 251 Ml Shampoo, 251 ML TP 3X/WEEK for dry scalp, (Reported) Entered as Reported by: JACKI FRANCES on 11/04/202309 Last Action: New Order on 11/04/202309 by JACKI FRANCES Cyanocobalamin (Vitamin B-12) (B-12) 1,000 Mcg Tablet.er, 1,000 MCG PO DAILY for supplement, (Reported) Entered as Reported by: JACKI FRANCES on 11/04/202302 Last Action: New Order on 11/04/202302 by JACKI FRANCES Docusate Sodium (Docusate Sodium) 100 Mg Capsule, 1 CAP PO BID for constipation for 15 Days, #30 Ref 0 (Reported) Entered as Reported by: JACKI FRANCES on 11/04/202303 Last Action: New Order on 11/04/202303 by JACKI FRANCES Finasteride (Finasteride) 5 Mg Tablet, 5 MG PO DAILY for BPH, (Reported) Entered as Reported by: JACKI FRANCES on 11/04/202305 Last Action: New Order on 11/04/202305 by JACKI FRANCES Haloperidol (Haloperidol) 2 Mg Tablet, 1 TAB PO BID for mood stabilizer, #60 Ref 1 (Reported) Entered as Reported by: JACKI FRANCES on 11/04/202306 Last Action: New Order on 11/04/202306 by JACKI FRANCES Metoprolol Tartrate (Metoprolol Tartrate) 25 Mg Tablet, 25 MG PO BID for FOR HYPERTENSION, #60 Ref 0 (Reported) Entered as Reported by: JACKI FRANCES on 11/04/202306 Last Action: Continued on 11/06/201132 by MELANIA ESPINAL Polyethylene Glycol 3350 (Miralax) 17 Gm Powd.pack, 1 PKT PO DAILY for constipation, (Reported) Entered as Reported by: JACKI FRANCES on 11/04/202307 Last Action: New Order on 11/04/202307 by JACKI FRANCES Tamsulosin Hcl (Flomax) 0.4 Mg Cap.er.24h, 0.8 MG PO HS for BPH, (Reported) Entered as Reported by: JACKI FRANCES on 11/04/202308 Last Action: New Order on 11/04/202308 by JACKI FRANCES Thiamine Hcl (Vitamin B-1) 100 Mg Tablet, 100 MG PO DAILY for supplement, (Reported) Entered as Reported by: JACKI FRANCES on 11/04/202309 Last Action: New Order on 11/04/202309 by JACKI FRANCES Justicifation of Admission Dx: Justifications for Admission: Justification of Admission Dx: Yes Sepsis: Bacteremia ROXANE RENTERIA MD Nov 16, 2020 11:03
[2020-11-16] MEDS ORDERED: LINE600T12 PO (11:05)
[2020-11-16] MEDS ORDERED: CEFD300C PO (11:05)
[2020-11-16] MEDS: AMIODARONE HCL 200 MG TABLET. PO SCH (12:46)
--- NOTE | 2020-11-16 13:07 | PDOC ---
Date of Service: DATE: 11/16/20 TIME: 13:04 Objective: Objective: Nurse says discharging back to correctional facility today. Vital Signs: Vital Signs Date Time Temp Pulse Resp B/P (MAP) Pulse Ox O2 Delivery O2 Flow Rate FiO2 11/16/20 12:46 68 117/50 11/16/20 10:31 98.0 18 91 Room Air 98.0 11/16/20 08:00 2.0 PE: GEN: NAD - clutching bed railings LUNGS: CTAB HEART: RRR ABD: non-distended, rectal tube w/ brown stool NEURO/PSYCH: confused A/P: Bacteremia/UTI Dysphagia, dementia REGGIE/ACD, h/o A Fib Diarrhea - C Diff pending COVID negative -- Discharge plans noted pending C Diff results. Resume Eliquie per primary. Justicifation of Admission Dx: Justifications for Admission: Justification of Admission Dx: Yes Sepsis: Bacteremia BOY KANG Nov 16, 2020 13:07
[2020-11-16 14:37] VITALS: BP 98/64
--- NOTE | 2020-11-16 16:50 | NUR ---
DISCHARGED PATIENT TO [facility]. REPORT GIVEN TO NURSING STAFF. PIV AND HEART MONITOR REMOVED. PATIENT OFF UNIT PER FIRE DEPARTMENT. ACCOMPANIED BY A GRANULATOR MACHINE OPERATOR.
[2020-11-16] MEDS ORDERED: LACTOBACILLUS RHAMNOSUS GG 1 CAPSULE. PO SCH (21:00)
== END 2020-11-16 16:50 | DRG 871 ==
LOC: ER 15:59 → EEVIPCON 15:59 → ED HOLD 18:18 → 6 SOUTH 22:07
PROVIDERS: ADMIT Family Medicine; ATTEND Family Medicine
DX: A41.51 Sepsis due to Escherichia coli [E. coli] (principal); E43 Unspecified severe protein-calorie malnutrition; N12 Tubulo-interstitial nephritis, not specified as acute or chronic; N30.01 Acute cystitis with hematuria; Z16.11 Resistance to penicillins; Z68.1 Body mass index [BMI] 19.9 or less, adult; D64.9 Anemia, unspecified; F02.80 Dementia in other diseases classified elsewhere, unspecified severity, without behavioral disturbance, psychotic disturbance, mood disturbance, and anxiety; I12.9 Hypertensive chronic kidney disease with stage 1 through stage 4 chronic kidney disease, or unspecified chronic kidney disease; I48.91 Unspecified atrial fibrillation; K57.90 Diverticulosis of intestine, part unspecified, without perforation or abscess without bleeding; K59.00 Constipation, unspecified; N18.9 Chronic kidney disease, unspecified; N20.0 Calculus of kidney; N40.0 Benign prostatic hyperplasia without lower urinary tract symptoms; R09.02 Hypoxemia; R13.12 Dysphagia, oropharyngeal phase; Z20.822 Contact with and (suspected) exposure to COVID-19; Z79.01 Long term (current) use of anticoagulants; Z79.899 Other long term (current) drug therapy; Z87.440 Personal history of urinary (tract) infections; M19.90 Unspecified osteoarthritis, unspecified site
CPT/HCPCS: 36415; 71045; 74176; 80048; 80053; 81001; 82550; 82607; 82962; 83540; 83550; 83605; 83735; 84145; 85007; 85025; 85610; 86140; 87040; 87077; 87086; 87186; 87205; 87426; 87493; 93005; 96361; 96365; 96368; 96375; J0610; J0692; J0696; J0878; J1940; J2020; J2060; J3475; J3490; J7030; U0003; U0005; 92526-GN; 92610-GN; 97110-GP; 97530-GO; 97530-GP; 99285-25; G0378